=== PATIENT | male | born 1980 ===

== ENCOUNTER 2021-05-08 22:55 | Inpatient (IN) | payer MEDICARE, MEDICAID ==
[~2021-05-08] VITALS: Ht 170.2 cm; Wt 82.2 kg
[2021-05-08 23:00] VITALS: BP 143/91
[2021-05-08] MEDS ORDERED: VANCOMYCIN PER PHARMACY MC PRN (23:15)
[2021-05-08] MEDS ORDERED: PIP/TAZO PER PHARMACY MC PRN (23:15)
[2021-05-08] MEDS ORDERED: ONDANSETRON PF 4 MG/2 ML VIAL. IVP PRN (23:15)
[2021-05-08] MEDS ORDERED: HYDR100T24 PO (23:16)
[2021-05-08] MEDS ORDERED: CARV25TA2 PO (23:16)
[2021-05-08] MEDS ORDERED: CALC667T4 PO (23:16)
[2021-05-08] MEDS ORDERED: CETI10TA16 PO (23:16)
[2021-05-08] MEDS ORDERED: B,C/1TAB PO (23:16)
[2021-05-08] MEDS ORDERED: CLON0.1T PO (23:16)
[2021-05-08] MEDS: MORPHINE SULFATE 4 MG/ML INJ. IV PRN (23:36)
[2021-05-08] MEDS: GABAPENTIN 100 MG CAPSULE. PO SCH (23:36)
[2021-05-09] MEDS ORDERED: LINEZOLID 600 MG TABLET PO SCH (00:30)
[2021-05-09] MEDS: MEROPENEM 500 MG in IV NORMAL SALINE 50ML 50 ML IV SCH ×2 (00:30→22:16)
[2021-05-09 03:00] VITALS: BP 159/97
[2021-05-09] MEDS: MORPHINE SULFATE 4 MG/ML INJ. IV PRN ×4 (05:37→20:13)
[2021-05-09 07:00] VITALS: BP 162/96
--- NOTE | 2021-05-09 08:38 | PDOC1 ---
History and Physical Date of Service: DOS: DATE: 05/09/21 TIME: 08:37 Chief Complaint: Chief Complain: Infected AV graft in the right upper extremity History of Present Illness: HPI: Patient is a 40-year-old male with past medical history of ESRD TTS, IV drug abuse, noncompliance, and multiple times at [facility] for partially occluded temporary dialysis catheters and infections. Apparently, he was lost to follow-up at [facility] but he did go to [place] and had an AV graft placed and has been used for approximately 4 weeks. Of note when patient was at [place] his hemoglobin was 6.9 and he needed transfusion. The graft was also evaluated and ultrasound that showed no focal stenosis in the fistula however there was fluid adjacent to the graft itself that was consistent with an abscess. Patient only complains of pain and swelling around her his upper extremity. Denies any fevers, chest pain, shortness of breath, abdominal pain, dysuria, diarrhea or bloody stools. Patient was transferred over here to [place] for vascular surgery support and evaluation. Past Medical/Surgical History: PMH/PSH: Past medical and surgical history of hypertension, ESRD TTS, IV drug abuse, AV graft placement and temporary catheter placement. Allergies: Allergies: Coded Allergies: sulfamethoxazole (Verified Allergy, Severe, 05/08/21) NOt allowed d/t kidney function trimethoprim (Verified Allergy, Severe, 05/08/21) Penicillins (Verified Allergy, Intermediate, 05/08/21) codeine (Verified Allergy, Intermediate, 05/08/21) hydrocodone (Verified Allergy, Intermediate, Rash, 05/08/21) vancomycin (Verified Allergy, Intermediate, Rash, 05/08/21) Family History: Family History: Reviewed with no relevant findings. Social History: Social History: History of IV drug abuse Current Medications: Current Medications Current Medications Morphine Sulfate (Morphine Sulfate) 4 mg PRN Q2HR PRN IV SEVERE PAIN 7-10 Last administered on 05/09/21at 05:37; Start 05/08/21 at 23:15 Piperacillin Sod/ Tazobactam Sod (Zosyn Per Pharmacy) 1 each PRN DAILY PRN MC SEE COMMENTS; Start 05/08/21 at 23:15; Stop 05/09/21 at 00:14; Status DC Vancomycin HCl (Vanco Per Pharmacy) 1 each PRN DAILY PRN MC SEE COMMENTS; Start 05/08/21 at 23:15; Stop 05/09/21 at 00:14; Status DC Diphenhydramine HCl (Benadryl) 25 mg PRN QHS PRN PO INSOMNIA; Start 05/08/21 at 23:15 Alprazolam (Xanax) 0.5 mg PRN Q6HRS PRN PO ANXIETY / AGITATION; Start 05/08/21 at 23:15 Gabapentin (Neurontin) 100 mg BID PO Last administered on 05/08/21at 23:36; Start 05/09/21 at 00:00 Ondansetron HCl (Zofran) 4 mg PRN Q4HRS PRN IVP NAUSEA/VOMITING 1ST CHOICE; Start 05/08/21 at 23:15 Pantoprazole Sodium (Protonix) 40 mg DAILYAC PO ; Start 05/09/21 at 07:30 Cetirizine HCl (ZyrTEC) 10 mg DAILY PO ; Start 05/09/21 at 09:00 Clonidine HCl (Catapres) 0.1 mg DAILY PO ; Start 05/09/21 at 09:00 Vitamin B Complex/ Vitamin C (Diane-Jerrod) 1 tab DAILY PO ; Start 05/09/21 at 09:00 Calcium Acetate (Phoslo) 667 mg TIDWMEALS PO ; Start 05/09/21 at 08:00 Carvedilol (Coreg) 25 mg BIDWMEALS PO ; Start 05/09/21 at 08:00 Hydralazine HCl (Apresoline) 100 mg DAILY PO ; Start 05/09/21 at 09:00 Linezolid (Zyvox) 600 mg BID PO ; Start 05/09/21 at 00:30; Stop 05/09/21 at 04:11; Status DC Meropenem 500 mg/ Sodium Chloride 50 ml @ 100 mls/hr QHS IV Last administered on 05/09/21at 00:30; Start 05/09/21 at 00:30 Linezolid/Dextrose 300 ml @ 300 mls/hr Q12HR IV Last administered on 05/09/21at 05:32; Start 05/09/21 at 05:00 Active Scripts Active Reported Carvedilol 25 Mg Tablet 25 Mg PO BIDWMEALS Renaplex-D Tablet (B,C/Folic/Zinc/Selenometh/D3/E) 1 Each Tablet 1 Each PO DAILY Clonidine Hcl 0.1 Mg Tablet 0.1 Mg PO DAILY Hydralazine Hcl 100 Mg Tablet 1 Tab PO DAILY Calcium Acetate 667 Mg Tablet 1 Tab PO TID 30 Days Cetirizine Hcl 10 Mg Tablet 1 Tab PO DAILY ROS: Review of Systems Review of System REVIEW OF SYSTEMS: GENERAL: Denies weakness SKIN: No bruising, hair changes or rashes. EYES: No blurred, double or loss of vision. NOSE AND THROAT: No history of nosebleeds, hoarseness or sore throat. HEART: No history of palpitations, chest pain or shortness of breath on exertion. LUNGS: Denies cough, hemoptysis, wheezing or shortness of breath. GASTROINTESTINAL: Denies changes in appetite, nausea, vomiting, diarrhea or constipation. GENITOURINARY: No history of frequency, urgency, hesitancy or nocturia. NEUROLOGIC: Denies history of numbness, tingling, or tremor. PSYCHIATRIC: No history of panic, anxiety or depression. ENDOCRINE: No history of heat or cold intolerance, polyuria or polydipsia. EXTREMITIES: Denies joint pain, pain on walking or stiffness. Physical Exam: Vital Signs: Vital Signs Date Time Temp Pulse Resp B/P (MAP) Pulse Ox O2 Delivery O2 Flow Rate FiO2 05/09/21 03:00 98.4 91 20 159/97 (117) 98 Room Air 98.4 Physcial Exam: GEN: No apparent distress. Alert and oriented HEENT: Normal cephalic, atraumatic, external auditory canals are patent EYES: Extraocular muscles are intact, pupil are equally round and reactive to light and accommodation MUSCULOSKELETAL: Well developed , well nourished, good range of motion ENDOCRINE: No thyromegaly was palpated LYMPHATICS: No cervical chain or axillary nodes were noted HEMATOPOIETIC: No bruising NECK: Supple, no JVD, no thyromegaly was noted LUNGS: Clear to auscultation in all lung kumar without rhonchi or wheezing HEART: RRR, S!, S2 present. Peripheral pulses intact, no obvious murmurs noted ABDOMEN: Soft, nontender. Positive bowel sounds, no organomegaly, normal bowel sounds EXTREMITIES: Without clubbing, cyanosis, or edema. Pedal pulses intact. Negative Homans sign NEUROLOGIC: Normal speech and tone. A&O x 3, moves all extremities, no obvious focal deficits PSYCHIATRIC: Normal affect, normal mood. Stable SKIN: No ulcerations or rashes, good skin turgor, no jaundice VASCULAR: Good capillary refill, neurovascular bundle appears to be intact Labs: Labs: Pending redraw of labs. Images: Images All images reviewed from [facility]. Assessment/Plan Assessment/Plan Acute infection of right upper extremity AV graft Acute volume overload due to ESRD Acute electrolyte derangement due to ESRD Admit to hospital service for further management Vascular surgery consult Consider ID consult Nephrology consult for HD Continue empiric IV antibiotics Pending blood cultures Heparin for DVT prophylaxis Protonix GI prophylaxis ADA diet Full code Discussed with RN and SW Disposition inpatient management as above Surrogate decision maker is Justifications for Admission Other Justification KRISTINA GUY MD May 09, 2021 08:37
[2021-05-09] MEDS: GABAPENTIN 100 MG CAPSULE. PO SCH ×2 (08:40→20:13)
[2021-05-09] MEDS: FOLIC/VIT B COMP W-C (RENAL) TABLET. PO SCH (08:40)
[2021-05-09] MEDS: cloNIDine HCL 0.1 MG TABLET PO SCH (08:40)
[2021-05-09] MEDS: CARVEDILOL 12.5 MG TABLET. PO SCH ×2 (08:41→17:14)
[2021-05-09] MEDS: CETIRIZINE HCL 10 MG TABLET. PO SCH (08:41)
[2021-05-09] MEDS: CALCIUM ACETATE 667 MG CAPSULE PO SCH ×3 (08:41→17:13)
[2021-05-09] MEDS: PANTOPRAZOLE 40 MG TABLET.DR. PO SCH (08:41)
--- NOTE | 2021-05-09 10:01 | PDOC2 ---
CONSULT Date of Consult Date of Consult DATE: 05/09/21 TIME: 09:44 Reason for Consult Reason for Consult: ESRD Referring Physician Referring Physician: MALENA Identification/Chief Complaint Chief Complaint INFECTED ARM AVG Source Source: Chart review, Patient History of Present Illness Reason for Visit: THIS IS A 40 YR OLD WITH ESRD AND ON HD LAST 5 YEARS. ADMITTED TO [facility] WITH ANEMIA AND INFECTED RIGHT ARM AVG. 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 HAS HAD A FAILED LEFT ARM AVG ONCE AND A ANOTHER FAILED RIGHT ARM AVG. CURRENTLY HAS A NEW RIGHT ARM AVG PLACED ABOUT 4 WEEKS AGO PER PT. FIRST TWO DONE BY DR ROY AND THE LAST ONE BY DR FROST. CURRENTLY HAS A RIGHT ARM AVG ABSCESS. UNABLE TO USE ALTHOUGH PATENT. HE HAD A TEMP HD LINE PLACED AND HAS HAD HD VIA THIS YESTERDAY. USUAL HD DAYS ARE TTS. HE IS TRANSFERRED HERE DUE TO LACK OF VASCULAR SURGERY SUPPORT AT HIS HOSPITAL OR DUE TO LACK OF BEDS AT ANY OTHER NEAR HOSPITALS. LABS ARE C/W ESRD. ANEMIA NOTED. LABS FROM OUTSIDE HOSPITAL REVIEWED. NO LEUCOCYTOSIS NOTED. Past Medical History Past Medical History GLUCOSE INTOLERANCE, LINE SEPSIS, HX OF IVDA, HX OF CELLUITIS Cardiovascular: HTN, Hyperlipidemia Pulmonary: Bronchitis GI: Constipation Heme/Onc: Anemia NOS Renal/: Chronic renal failure, Other (MPGN, PROTEINURIA) Endocrine: Hyperparathyroidism Past Surgical History Past Surgical History HX OF TEMP AND TUNNELED HD LINE. HX OF FAILED LEFT ARM AND RIGHT ARM AVG Family History Family History: Hypertension Social History No ALCOHOL: social Drugs: Other (IVDA) Lives: with Family Current Medications Current Medications Current Medications Morphine Sulfate (Morphine Sulfate) 4 mg PRN Q2HR PRN IV SEVERE PAIN 7-10 Last administered on 05/09/21at 08:40; Start 05/08/21 at 23:15 Piperacillin Sod/ Tazobactam Sod (Zosyn Per Pharmacy) 1 each PRN DAILY PRN MC SEE COMMENTS; Start 05/08/21 at 23:15; Stop 05/09/21 at 00:14; Status DC Vancomycin HCl (Vanco Per Pharmacy) 1 each PRN DAILY PRN MC SEE COMMENTS; Start 05/08/21 at 23:15; Stop 05/09/21 at 00:14; Status DC Diphenhydramine HCl (Benadryl) 25 mg PRN QHS PRN PO INSOMNIA; Start 05/08/21 at 23:15 Alprazolam (Xanax) 0.5 mg PRN Q6HRS PRN PO ANXIETY / AGITATION; Start 05/08/21 at 23:15 Gabapentin (Neurontin) 100 mg BID PO Last administered on 05/09/21at 08:40; Start 05/09/21 at 00:00 Ondansetron HCl (Zofran) 4 mg PRN Q4HRS PRN IVP NAUSEA/VOMITING 1ST CHOICE; Start 05/08/21 at 23:15 Pantoprazole Sodium (Protonix) 40 mg DAILYAC PO Last administered on 05/09/21 08:41; Start 05/09/21 at 07:30 Cetirizine HCl (ZyrTEC) 10 mg DAILY PO Last administered on 05/09/21 08:41; Start 05/09/21 at 09:00 Clonidine HCl (Catapres) 0.1 mg DAILY PO Last administered on 05/09/21at 08:40; Start 05/09/21 at 09:00 Vitamin B Complex/ Vitamin C (Diane-Jerrod) 1 tab DAILY PO Last administered on 05/09/21 08:40; Start 05/09/21 at 09:00 Calcium Acetate (Phoslo) 667 mg TIDWMEALS PO Last administered on 05/09/21 08:41; Start 05/09/21 at 08:00 Carvedilol (Coreg) 25 mg BIDWMEALS PO Last administered on 05/09/21 08:41; Start 05/09/21 at 08:00 Hydralazine HCl (Apresoline) 100 mg DAILY PO Last administered on 05/09/21at 08:41; Start 05/09/21 at 09:00 Linezolid (Zyvox) 600 mg BID PO ; Start 05/09/21 at 00:30; Stop 05/09/21 at 04:11; Status DC Meropenem 500 mg/ Sodium Chloride 50 ml @ 100 mls/hr QHS IV Last administered on 05/09/21at 00:30; Start 05/09/21 at 00:30 Linezolid/Dextrose 300 ml @ 300 mls/hr Q12HR IV Last administered on 05/09/21at 05:32; Start 05/09/21 at 05:00 Active Scripts Active Reported Carvedilol 25 Mg Tablet 25 Mg PO BIDWMEALS Renaplex-D Tablet (B,C/Folic/Zinc/Selenometh/D3/E) 1 Each Tablet 1 Each PO DAILY Clonidine Hcl 0.1 Mg Tablet 0.1 Mg PO DAILY Hydralazine Hcl 100 Mg Tablet 1 Tab PO DAILY Calcium Acetate 667 Mg Tablet 1 Tab PO TID 30 Days Cetirizine Hcl 10 Mg Tablet 1 Tab PO DAILY Allergies Allergies: Coded Allergies: sulfamethoxazole (Verified Allergy, Severe, 05/08/21) NOt allowed d/t kidney function trimethoprim (Verified Allergy, Severe, 05/08/21) Penicillins (Verified Allergy, Intermediate, 05/08/21) codeine (Verified Allergy, Intermediate, 05/08/21) hydrocodone (Verified Allergy, Intermediate, Rash, 05/08/21) vancomycin (Verified Allergy, Intermediate, Rash, 05/08/21) ROS General: YES: Fatigue, Malaise PSYCHOLOGICAL ROS: YES: Anxiety, Depression, Sleep disturbances Eyes: Yes Decreased vision HEENT: YES: Nuha ALLERGY AND IMMUNOLOGY: YES: Seasonal Allergies Respiratory: YES: Cough, Orthopnea Cardiovascular: yes Edema Gastrointestinal: Yes Constipation Genitourinary: YES Frequency Musculoskeletal: Yes Joint Stiffness, Yes Muscular Weakness Neurological: Yes Weakness Skin: Yes Other (RIGHT ARM TENDERNESS OVER AVG SITE) Physical Exam General: Alert, Oriented X3, Cooperative, No acute distress HEENT: Atraumatic, PERRLA Lungs: Clear to auscultation Heart: Regular rate, Normal S1, Normal S2 Abdomen: Normal bowel sounds Extremities: No clubbing, No edema Skin: No breakdown Neuro: Normal gait, Normal speech, Sensation intact Psych/Mental Status: Mental status NL, Mood NL MUSCULOSKELETAL: No joint tenderness, No deformity, Other (RIGHT ARM AVG WITH A THRILL AND BRUIT, RIGHT IJ TEMP HD LINE) Vitals VITALS Vital Signs Date Time Temp Pulse Resp B/P (MAP) Pulse Ox O2 Delivery O2 Flow Rate FiO2 05/09/21 08:41 91 159/97 05/09/21 08:40 Room Air 05/09/21 07:00 98.7 20 96 98.7 Labs Labs OUTSIDE LABS REVIEWED Assessment/Plan Assessment/Plan IMP ESRD-TTS MPGN ANEMIA HTN GLUCOSE INTOLERANCE POSS LINE SEPSIS RIGHT ARM BB AVG ABSCESS PLAN ANTIBIOTICS ARANESP RESUME HOME MEDS HAD HD YESTERDAY - SO NEXT TX ON TUESDAY CONSIDER ECHOCARDIOGRAM VASCULAR SURGERY CONSULT WILL PROB NEED GRAFT RESECTION ONCE INFECTION CLEARS WILL CONVERT TEMP TO TUNNELED LINE RENAL DIET ENC ABSTINENCE FROM IVDA WILL FOLLOW D/W ATTENDING ITZEL ARAYA MD May 09, 2021 10:01
[2021-05-09 10:36] LABS: CALCIUM 8.6 mg/dL (8.5-10.1); CREATININE 6.4 mg/dL (0.7-1.3); GFR 9.8; POTASSIUM 5.4 mmol/L (3.5-5.1)
[2021-05-09 11:00] VITALS: BP 158/87
[2021-05-09 11:06] LABS: BASO # 0.1 x10^3/uL (0.0-0.2); BASO % 1 % (0-3); EOS # 0.1 x10^3/uL (0.0-0.7); EOS % 2 % (0-3); HEMATOCRIT 27.2 % (39.0-53.0); HEMOGLOBIN 9.2 g/dL (13.0-17.5); LYMPH # 0.7 x10^3/uL (1.0-4.8); LYMPH % 9 % (24-48); MEAN CORPUSCULAR HEMOGLOBIN 31 pg (25-35); MEAN CORPUSCULAR HGB CONC 34 g/dL (31-37); MEAN CORPUSCULAR VOLUME 93 fL (79-100); MONO % 0 % (0-9); NEUT # 6.9 x10^3/uL (1.8-7.7); NEUT % 88 % (31-73); PLATELET COUNT 180 x10^3/uL (140-400); RED BLOOD COUNT 2.94 x10^6/uL (4.30-5.70); RED CELL DISTRIBUTION WIDTH 20.5 % (11.5-14.5); WHITE BLOOD COUNT 7.9 x10^3/uL (4.0-11.0)
--- NOTE | 2021-05-09 11:27 | PDOC ---
Provider Note Date of Service: DATE: 05/09/21 TIME: 11:22 Provider Note (Please see full dictated note for details.) He is a 40-year-old male with chronic renal failure on hemodialysis. He presents with swelling and tenderness along his right arm arteriovenous shunt. The shunt was placed approximately 2 months ago. An outside ultrasound suggested fluid around the graft concerning for possible abscess. He currently has a temporary dialysis catheter in his right neck. He states that there was some difficulty with his access of the right arm graft previously. He has had previous graft within his left arm. His last graft in the left arm had to be removed due to infection. He has a superficial area of skin breakdown over the lateral aspect of his right arm graft. There is no surrounding erythema or fluctuance at this time. He has some more significant fullness on the medial right arm that is not tender. There is also no surrounding erythema. He has chronic renal failure on hemodialysis. He has a superficial ulcer over his arteriovenous shunt, but no other signs of deeper infection at this time despite his recent ultrasound imaging. Would continue broad-spectrum antibiotics. I do not have images of his previous ultrasound. Would consider repeating a right arm ultrasound tomorrow. I do not see any definitive clinical findings to suggest a deeper abscess at this time. I would not recommend exploration or excision of his graft unless we see more definitive signs of a deeper infection. We will continue to follow with you. Justifications for Admission Other Justification ZEV GABRIEL MD May 09, 2021 11:27
--- NOTE | 2021-05-09 13:06 | CONS ---
DATE OF CONSULTATION: 05/09/2021 CHIEF COMPLAINT: Right arm pain and swelling. HISTORY OF PRESENT ILLNESS: The patient is a 40-year-old male with chronic renal failure, on hemodialysis. He has been dialyzing through a right arm arteriovenous shunt placed approximately 2 months ago. He developed swelling after a recent episode of dialysis where there was some difficulty with needle access. He has had some tenderness on the lateral aspect of the graft since that time. There was concern about infected graft, which prompted presentation to the hospital. He denies any fevers or chills at this time. He has had multiple previous grafts in his left arm. His latest left arm graft had to be removed due to infection. An ultrasound at [facility] suggested fluid around his right arm shunt, possibly related to an abscess. I do not have access to those images at this time. PAST MEDICAL HISTORY: 1. Chronic renal failure, on hemodialysis. 2. Hypertension. 3. Hyperlipidemia. 4. Secondary hyperparathyroidism. PAST SURGICAL HISTORY: 1. Previous left arm arteriovenous access including fistula and shunt placement with a previous infected graft removal. 2. Right arm arteriovenous shunt placement approximately 2 months ago. 3. Previous hemodialysis catheter placement including a recent right internal jugular temporary catheter placement. CURRENT MEDICATIONS: Aranesp, hydralazine, vitamin B complex, clonidine, Zyrtec, Coreg, calcium acetate, pantoprazole, linezolid, meropenem, Neurontin, Zofran, alprazolam and p.r.n. morphine. ALLERGIES: ADVERSE REACTION TO PENICILLIN, CODEINE, HYDROCODONE, SULFAMETHOXAZOLE, TRIMETHOPRIM, AND VANCOMYCIN. SOCIAL HISTORY: He notes occasional alcohol use. He denies any smoking at this time. He lives with his family. FAMILY HISTORY: Significant for hypertension. REVIEW OF SYSTEMS: No recent fevers, chills, chest pain or shortness of breath. He denies any unilateral weakness/numbness, vision loss, speech changes or other lateralizing TIA or stroke symptoms. He denies any nausea, vomiting, diarrhea, constipation, hematochezia, melena or other GI symptoms. He has some chronic weakness. Other 14-point review of systems are unremarkable. PHYSICAL EXAMINATION: GENERAL: This is a chronically ill-appearing male in no acute distress. VITAL SIGNS: Temperature 98.7, pulse 85, blood pressure 162/96, respirations 20. NECK: Supple. He has a right internal jugular temporary dialysis catheter in place. He has scarring from previous catheter access. CARDIOVASCULAR: Regular rhythm. Respirations nonlabored. ABDOMEN: Soft, without focal areas of tenderness. EXTREMITIES: He has healed surgical scars on his left arm from previous dialysis access placement. He has a right upper arm arteriovenous shunt with palpable thrill within the graft. There is a superficial area of skin breakdown measuring less than a centimeter in diameter over the lateral and distal aspect of his right arm AV shunt. There is no surrounding erythema or fluctuance of this area. No drainage at present. He has some more prominent fullness on the medial aspect of his right arm, but no surrounding erythema. He has some slight tenderness around the lateral aspect of the graft, but no area of tenderness on the medial arm where the fullness is noted. He has no areas of skin breakdown on his fingers. No significant peripheral edema or areas of skin breakdown on his lower extremities. LABORATORY DATA: Labs are significant for white blood cell 7.9, hemoglobin 9.2, platelet count of 180. Sodium 135, potassium 5.4, BUN 45, creatinine 6.4, glucose 83. ASSESSMENT AND PLAN: 1. Chronic renal failure, on hemodialysis. 2. Tenderness and swelling around his right arm arteriovenous shunt. It is unclear whether this is due to infiltration and perigraft hematoma or less likely due to abscess. 3. Hypertension. 4. Secondary hyperparathyroidism. RECOMMENDATIONS: 1. Broad spectrum IV antibiotics that have been started. 2. I do not see definitive clinical evidence of a graft infection. I am hesitant to remove this right arm graft based solely upon and ultrasound with some perigraft fluid in the absence of fever or elevated white blood cell count or other clinical findings. Would consider repeating a right arm shunt ultrasound to see if this fluid collection has changed or if he has clinical changes that might suggest a deeper infection. 3. We will continue to follow with you. DAILY DR: Mery TID: [id number] CC: ITZEL ARAYA MD
[2021-05-09 13:56] LABS: % EOS 1 % (0-5); % LYMPHS 16 % (24-48); % MONOS 2 % (0-10); % SEGS 81 % (35-66); ANISOCYTOSIS SLIGHT; PLT ESTIMATE ADEQUATE (ADEQUATE)
[2021-05-09 15:00] VITALS: BP 150/80
[2021-05-09] MEDS: oxyCODONE/APAP 10/325 1 TAB TABLET PO PRN ×2 (17:14→23:39)
[2021-05-09 19:00] VITALS: BP 132/77
[2021-05-09] MEDS: LACTOBACILLUS RHAMNOSUS GG 1 CAPSULE. PO SCH (20:13)
[2021-05-09] MEDS: ALPRAZolam 0.5 MG TABLET PO PRN (20:14)
[2021-05-09] MEDS: DARBEPOETIN ALFA 25 MCG/0.42 ML DISP.SYRIN. SQ SCH (21:00)
[2021-05-09] MEDS: DARBEPOETIN ALFA 40 MCG/0.4 ML DISP.SYRIN. SQ SCH (21:00)
[2021-05-09 23:00] VITALS: BP 134/78
[2021-05-10] MEDS: MORPHINE SULFATE 4 MG/ML INJ. IV PRN ×3 (01:59→20:03)
[2021-05-10 03:00] VITALS: BP 141/70
[2021-05-10 06:07] LABS: CALCIUM 8.5 mg/dL (8.5-10.1); CREATININE 7.7 mg/dL (0.7-1.3); GFR 7.9; POTASSIUM 5.3 mmol/L (3.5-5.1)
[2021-05-10 06:08] LABS: RED BLOOD COUNT 2.63 x10^6/uL (4.30-5.70); RED CELL DISTRIBUTION WIDTH 20.4 % (11.5-14.5)
[2021-05-10 06:45] VITALS: BP 162/95
[2021-05-10] MEDS: CARVEDILOL 12.5 MG TABLET. PO SCH ×2 (08:08→17:42)
[2021-05-10] MEDS: CALCIUM ACETATE 667 MG CAPSULE PO SCH ×3 (08:08→17:42)
[2021-05-10] MEDS: PANTOPRAZOLE 40 MG TABLET.DR. PO SCH (08:09)
--- NOTE | 2021-05-10 10:37 | PDOC ---
Renal-Progress Notes Subjective Notes Notes THROBBING PAIN RIGHT ARM AVG AREA History of Present Illness Hx of present illness STABLE Vitals Vitals Vital Signs Date Time Temp Pulse Resp B/P (MAP) Pulse Ox O2 Delivery O2 Flow Rate FiO2 05/10/21 08:08 99 162/95 05/10/21 06:45 97.6 20 99 Room Air 97.6 Weight Weight [ ] I.O. Intake and Output Intake and Output 05/10/21 07:00 Intake Total 1240 ml Balance 1240 ml Intake Oral 1240 ml Labs Labs Laboratory Tests Test 05/10/21 05:15 White Blood Count 7.0 x10^3/uL (4.0-11.0) Red Blood Count 2.63 x10^6/uL (4.30-5.70) Hemoglobin 8.0 g/dL (13.0-17.5) Hematocrit 24.0 % (39.0-53.0) Mean Corpuscular Volume 91 fL (79-100) Mean Corpuscular Hemoglobin 30 pg (25-35) Mean Corpuscular Hemoglobin Concent 33 g/dL (31-37) Red Cell Distribution Width 20.4 % (11.5-14.5) Platelet Count 161 x10^3/uL (140-400) Sodium Level 133 mmol/L (136-145) Potassium Level 5.3 mmol/L (3.5-5.1) Chloride Level 96 mmol/L (98-107) Carbon Dioxide Level 24 mmol/L (21-32) Anion Gap 13 (6-14) Blood Urea Nitrogen 56 mg/dL (8-26) Creatinine 7.7 mg/dL (0.7-1.3) Estimated GFR (Cockcroft-Gault) 7.9 Glucose Level 95 mg/dL (70-99) Calcium Level 8.5 mg/dL (8.5-10.1) Review of Systems Constitutional: yes: weakness, alert, oriented Ears/Nose/Throat: Yes: no symptom reported Eyes: Yes: no symptom reported Pulmonary: Yes no symptom reported Cardiovascular: Yes no symptom reported Gastrointestional: Yes: constipation Genitourinary: Yes: no symptom reported Musculoskeletal: Yes: arm pain, muscle stiffness Skin: Yes no symptom reported Psychiatric/Neurological: Yes: no symptom reported Endocrine: Yes: no symptom reported Physical Exam General Appearance: no apparent distress Skin: warm Respiratory: bilateral CTA Heart: S1S2 Abdomen: soft, bowel sounds present Genitourinary: bladder flat Extremities: pulses present, other (RIGHT ARM AVG WITH TENDERNESS, ERYTHEMA, THRILL AND BRUIT PRESENT) Neurology: alert, oriented Assessment Assessment IMP ESRD-TTS MPGN ANEMIA HTN GLUCOSE INTOLERANCE POSS LINE SEPSIS RIGHT ARM BB AVG SITE INFECTION IVDA PLAN ANTIBIOTICS ARANESP RESUME HOME MEDS HD TOMORROW CONSIDER ECHOCARDIOGRAM VASCULAR SURGERY EVALUATION ENC ABSTINENCE FROM IVDA WILL FOLLOW D/W ATTENDING ITZEL ARAYA MD May 10, 2021 10:36
[2021-05-10 11:00] VITALS: BP 132/63
[2021-05-10] MEDS: FOLIC/VIT B COMP W-C (RENAL) TABLET. PO SCH (11:05)
[2021-05-10] MEDS: cloNIDine HCL 0.1 MG TABLET PO SCH (11:06)
[2021-05-10] MEDS: GABAPENTIN 100 MG CAPSULE. PO SCH ×2 (11:06→20:03)
[2021-05-10] MEDS: LACTOBACILLUS RHAMNOSUS GG 1 CAPSULE. PO SCH ×2 (11:06→20:03)
[2021-05-10] MEDS: LINEZOLID 600 MG TABLET PO SCH ×2 (11:06→20:03)
[2021-05-10] MEDS: CETIRIZINE HCL 10 MG TABLET. PO SCH (11:06)
--- NOTE | 2021-05-10 11:06 | PDOC ---
[employer] PROGRESS NOTE Date of Service DOS: DATE: 05/10/21 TIME: 11:04 Chief Complaint Chief Complaint Acute infection of right upper extremity AV graft Acute volume overload due to ESRD Acute electrolyte derangement due to ESRD Pending TTE Vascular surgery consult Consider ID consult Nephrology consult for HD Continue empiric IV antibiotics Pending blood cultures Heparin for DVT prophylaxis Protonix GI prophylaxis ADA diet Full code Discussed with RN and SW Disposition inpatient management as above Surrogate decision maker is History of Present Illness History of Present Illness 40-year-old male with past medical history of ESRD TTS, IV drug abuse, noncompliance, and multiple times at [facility] for partially occluded temporary dialysis catheters and infections. Apparently, he was lost to follow-up at [facility] but he did go to [place] and had an AV graft placed and has been used for approximately 4 weeks. Of note when patient was at [place] his hemoglobin was 6.9 and he needed transfusion. The graft was also evaluated and ultrasound that showed no focal stenosis in the fistula however there was fluid adjacent to the graft itself that was consistent with an abscess. Patient only complains of pain and swelling around her his up per extremity. Denies any fevers, chest pain, shortness of breath, abdominal pain, dysuria, diarrhea or bloody stools. Patient was transferred over here to [place] for vascular surgery support and evaluation. 05/10/2021 No acute events overnight. Afebrile. Labs are stable. Patient only complains of throbbing right arm pain. Patient's chart, labs, images were reviewed and discussed with RN Vitals/I&O Vitals/I&O: Vital Signs Date Time Temp Pulse Resp B/P (MAP) Pulse Ox O2 Delivery O2 Flow Rate FiO2 05/10/21 08:08 99 162/95 05/10/21 06:45 97.6 20 99 Room Air 97.6 I & O 05/09/21 05/09/21 05/10/21 15:00 23:00 07:00 Intake Total 300 ml 640 ml 300 ml Balance 300 ml 640 ml 300 ml Physical Exam General: Alert, Oriented X3, Cooperative, No acute distress Heart: Regular rate, Normal S1, Normal S2 Abdomen: Normal bowel sounds Extremities: No clubbing, Other (Tenderness in the right arm near the AV graft site. Increased swelling at the right upper extremity.) Skin: No breakdown Labs Labs: Laboratory Tests Test 05/10/21 05:15 White Blood Count 7.0 x10^3/uL (4.0-11.0) Red Blood Count 2.63 x10^6/uL (4.30-5.70) Hemoglobin 8.0 g/dL (13.0-17.5) Hematocrit 24.0 % (39.0-53.0) Mean Corpuscular Volume 91 fL (79-100) Mean Corpuscular Hemoglobin 30 pg (25-35) Mean Corpuscular Hemoglobin Concent 33 g/dL (31-37) Red Cell Distribution Width 20.4 % (11.5-14.5) Platelet Count 161 x10^3/uL (140-400) Sodium Level 133 mmol/L (136-145) Potassium Level 5.3 mmol/L (3.5-5.1) Chloride Level 96 mmol/L (98-107) Carbon Dioxide Level 24 mmol/L (21-32) Anion Gap 13 (6-14) Blood Urea Nitrogen 56 mg/dL (8-26) Creatinine 7.7 mg/dL (0.7-1.3) Estimated GFR (Cockcroft-Gault) 7.9 Glucose Level 95 mg/dL (70-99) Calcium Level 8.5 mg/dL (8.5-10.1) Comment Review of Relevant I have reviewed the following items guerda (where applicable) has been applied. Medications: Current Medications Medications (Trade) Dose Ordered Sig/Gemma Route PRN Reason Start Time Stop Time Status Last Admin Dose Admin Oxycodone/ Acetaminophen (Percocet 10/325) 1 tab PRN Q6HRS PRN PO PAIN 05/09/21 13:00 05/09/21 23:39 Lactobacillus Rhamnosus (Culturelle) 1 cap BID PO 05/09/21 21:00 05/09/21 20:13 Justifications for Admission Other Justification KRISTINA GUY MD May 10, 2021 11:06
[2021-05-10] MEDS: oxyCODONE/APAP 10/325 1 TAB TABLET PO PRN ×3 (11:10→23:48)
--- NOTE | 2021-05-10 11:14 | PDOC ---
PROGRESS NOTES Date of Service DATE: 05/10/21 TIME: 11:12 Subjective Subjective Pt seen and examined in his hospital bed, labs and images reviewed He has some c/o swelling in the left axilla I examined the entire course of his AVG and do not appreciate any erythema, no fluctuance, no warmth, no drainage, etc I don't see any exam in lab evidence that his graft is infected. Removing this would leave him with a large wound and limited options for HD so wound only remove if absolutely necessary will continue to follow Objective Objective Vital Signs Date Time Temp Pulse Resp B/P (MAP) Pulse Ox O2 Delivery O2 Flow Rate FiO2 05/10/21 11:06 99 162/95 05/10/21 06:45 97.6 20 99 Room Air 97.6 Intake and Output 05/10/21 07:00 Intake Total 1240 ml Balance 1240 ml Intake Oral 1240 ml Comment Review of Relevant I have reviewed the following items guerda (where applicable) has been applied. Labs Laboratory Tests Test 05/09/21 08:55 05/10/21 05:15 White Blood Count 7.9 x10^3/uL (4.0-11.0) 7.0 x10^3/uL (4.0-11.0) Red Blood Count 2.94 x10^6/uL (4.30-5.70) 2.63 x10^6/uL (4.30-5.70) Hemoglobin 9.2 g/dL (13.0-17.5) 8.0 g/dL (13.0-17.5) Hematocrit 27.2 % (39.0-53.0) 24.0 % (39.0-53.0) Mean Corpuscular Volume 93 fL (79-100) 91 fL (79-100) Mean Corpuscular Hemoglobin 31 pg (25-35) 30 pg (25-35) Mean Corpuscular Hemoglobin Concent 34 g/dL (31-37) 33 g/dL (31-37) Red Cell Distribution Width 20.5 % (11.5-14.5) 20.4 % (11.5-14.5) Platelet Count 180 x10^3/uL (140-400) 161 x10^3/uL (140-400) Neutrophils (%) (Auto) 88 % (31-73) Lymphocytes (%) (Auto) 9 % (24-48) Monocytes (%) (Auto) 0 % (0-9) Eosinophils (%) (Auto) 2 % (0-3) Basophils (%) (Auto) 1 % (0-3) Neutrophils # (Auto) 6.9 x10^3/uL (1.8-7.7) Lymphocytes # (Auto) 0.7 x10^3/uL (1.0-4.8) Monocytes # (Auto) 0.0 x10^3/uL (0.0-1.1) Eosinophils # (Auto) 0.1 x10^3/uL (0.0-0.7) Basophils # (Auto) 0.1 x10^3/uL (0.0-0.2) Segmented Neutrophils % 81 % (35-66) Lymphocytes % 16 % (24-48) Monocytes % 2 % (0-10) Eosinophils % 1 % (0-5) Platelet Estimate Adequate (ADEQUATE) Anisocytosis Slight Sodium Level 135 mmol/L (136-145) 133 mmol/L (136-145) Potassium Level 5.4 mmol/L (3.5-5.1) 5.3 mmol/L (3.5-5.1) Chloride Level 99 mmol/L (98-107) 96 mmol/L (98-107) Carbon Dioxide Level 25 mmol/L (21-32) 24 mmol/L (21-32) Anion Gap 11 (6-14) 13 (6-14) Blood Urea Nitrogen 45 mg/dL (8-26) 56 mg/dL (8-26) Creatinine 6.4 mg/dL (0.7-1.3) 7.7 mg/dL (0.7-1.3) Estimated GFR (Cockcroft-Gault) 9.8 7.9 Glucose Level 83 mg/dL (70-99) 95 mg/dL (70-99) Calcium Level 8.6 mg/dL (8.5-10.1) 8.5 mg/dL (8.5-10.1) Laboratory Tests Test 05/10/21 05:15 White Blood Count 7.0 x10^3/uL (4.0-11.0) Red Blood Count 2.63 x10^6/uL (4.30-5.70) Hemoglobin 8.0 g/dL (13.0-17.5) Hematocrit 24.0 % (39.0-53.0) Mean Corpuscular Volume 91 fL (79-100) Mean Corpuscular Hemoglobin 30 pg (25-35) Mean Corpuscular Hemoglobin Concent 33 g/dL (31-37) Red Cell Distribution Width 20.4 % (11.5-14.5) Platelet Count 161 x10^3/uL (140-400) Sodium Level 133 mmol/L (136-145) Potassium Level 5.3 mmol/L (3.5-5.1) Chloride Level 96 mmol/L (98-107) Carbon Dioxide Level 24 mmol/L (21-32) Anion Gap 13 (6-14) Blood Urea Nitrogen 56 mg/dL (8-26) Creatinine 7.7 mg/dL (0.7-1.3) Estimated GFR (Cockcroft-Gault) 7.9 Glucose Level 95 mg/dL (70-99) Calcium Level 8.5 mg/dL (8.5-10.1) Medications Current Medications Morphine Sulfate (Morphine Sulfate) 4 mg PRN Q2HR PRN IV SEVERE PAIN 7-10 Last administered on 05/10/21at 11:07; Start 05/08/21 at 23:15 Piperacillin Sod/ Tazobactam Sod (Zosyn Per Pharmacy) 1 each PRN DAILY PRN MC SEE COMMENTS; Start 05/08/21 at 23:15; Stop 05/09/21 at 00:14; Status DC Vancomycin HCl (Vanco Per Pharmacy) 1 each PRN DAILY PRN MC SEE COMMENTS; Start 05/08/21 at 23:15; Stop 05/09/21 at 00:14; Status DC Diphenhydramine HCl (Benadryl) 25 mg PRN QHS PRN PO INSOMNIA; Start 05/08/21 at 23:15 Alprazolam (Xanax) 0.5 mg PRN Q6HRS PRN PO ANXIETY / AGITATION Last administered on 05/09/21at 20:14; Start 05/08/21 at 23:15 Gabapentin (Neurontin) 100 mg BID PO Last administered on 05/10/21at 11:06; Start 05/09/21 at 00:00 Ondansetron HCl (Zofran) 4 mg PRN Q4HRS PRN IVP NAUSEA/VOMITING 1ST CHOICE; Start 05/08/21 at 23:15 Pantoprazole Sodium (Protonix) 40 mg DAILYAC PO Last administered on 05/10/21at 08:09; Start 05/09/21 at 07:30 Cetirizine HCl (ZyrTEC) 10 mg DAILY PO Last administered on 05/10/21at 11:06; Start 05/09/21 at 09:00 Clonidine HCl (Catapres) 0.1 mg DAILY PO Last administered on 05/10/21at 11:06; Start 05/09/21 at 09:00 Vitamin B Complex/ Vitamin C (Diane-Jerrod) 1 tab DAILY PO Last administered on 05/10/21at 11:05; Start 05/09/21 at 09:00 Calcium Acetate (Phoslo) 667 mg TIDWMEALS PO Last administered on 05/10/21at 08:08; Start 05/09/21 at 08:00 Carvedilol (Coreg) 25 mg BIDWMEALS PO Last administered on 05/10/21at 08:08; Start 05/09/21 at 08:00 Hydralazine HCl (Apresoline) 100 mg DAILY PO Last administered on 05/10/21at 11:05; Start 05/09/21 at 09:00 Linezolid (Zyvox) 600 mg BID PO ; Start 05/09/21 at 00:30; Stop 05/09/21 at 04:11; Status DC Meropenem 500 mg/ Sodium Chloride 50 ml @ 100 mls/hr QHS IV Last administered on 05/09/21at 22:16; Start 05/09/21 at 00:30 Linezolid/Dextrose 300 ml @ 300 mls/hr Q12HR IV Last administered on 05/09/21at 20:13; Start 05/09/21 at 05:00; Stop 05/09/21 at 23:55; Status DC Darbepoetin Uriel (ARANESP for DIALYSIS PTS) 40 mcg WEEKLYHS SQ ; Start 05/09/21 at 21:00 Darbepoetin Uriel (ARANESP for DIALYSIS PTS) 25 mcg WEEKLYHS SQ ; Start 05/09/21 at 21:00 Oxycodone/ Acetaminophen (Percocet 10/325) 1 tab PRN Q6HRS PRN PO PAIN Last administered on 05/10/21at 11:10; Start 05/09/21 at 13:00 Lactobacillus Rhamnosus (Culturelle) 1 cap BID PO Last administered on 05/10/21 at 11:06; Start 05/09/21 at 21:00 Linezolid (Zyvox) 600 mg BID PO Last administered on 05/10/21at 11:06; Start 05/10/21 at 09:00 Active Scripts Active Reported Carvedilol 25 Mg Tablet 25 Mg PO BIDWMEALS Renaplex-D Tablet (B,C/Folic/Zinc/Selenometh/D3/E) 1 Each Tablet 1 Each PO DAILY Clonidine Hcl 0.1 Mg Tablet 0.1 Mg PO DAILY Hydralazine Hcl 100 Mg Tablet 1 Tab PO DAILY Calcium Acetate 667 Mg Tablet 1 Tab PO TID 30 Days Cetirizine Hcl 10 Mg Tablet 1 Tab PO DAILY Vitals/I & O Vital Sign - Last 24 Hours 05/09/21 05/09/21 05/09/21 05/09/21 14:43 15:00 15:16 17:14 Temp 98.6 98.6 Pulse 80 80 Resp 20 B/P (MAP) 150/80 (103) 150/80 Pulse Ox 98 O2 Delivery Room Air Room Air Room Air 05/09/21 05/09/21 05/09/21 05/09/21 17:14 19:00 20:00 23:00 Temp 98.2 97.8 98.2 97.8 Pulse 89 95 Resp 20 20 B/P (MAP) 132/77 (95) 134/78 (96) Pulse Ox 98 97 O2 Delivery Room Air Room Air Room Air Room Air 05/10/21 05/10/21 05/10/21 05/10/21 03:00 06:45 08:08 11:05 Temp 98.4 97.6 98.4 97.6 Pulse 87 99 99 99 Resp 20 20 B/P (MAP) 141/70 (93) 162/95 (117) 162/95 162/95 Pulse Ox 97 99 O2 Delivery Room Air Room Air 05/10/21 11:06 Pulse 99 B/P (MAP) 162/95 Intake and Output 05/09/21 05/09/21 05/10/21 15:00 23:00 07:00 Intake Total 300 ml 640 ml 300 ml Balance 300 ml 640 ml 300 ml Justifications for Admission Other Justification SAIDA TALBERT MD May 10, 2021 11:14
[2021-05-10 15:00] VITALS: BP 132/78
--- NOTE | 2021-05-10 15:39 | CONS ---
DATE OF CONSULTATION: 05/10/2021 REFERRING PHYSICIAN: Dr. Schaefer. REASON FOR CONSULTATION: Infected AV graft in the right upper extremity. HISTORY OF PRESENT ILLNESS: A 40-year-old male with history of end-stage renal disease on dialysis, IV drug, hypertension, hyperlipidemia, history of noncompliance, presented to [place] as his hemoglobin was 6.9 and he needed transfusion. The graft was evaluated and ultrasound showed no focal stenosis in the fistula, but there was a fluid adjacent to the graft itself consistent with abscess. The patient complains of pain and swelling of the right upper extremity. He denies any fevers, chills, nausea, vomiting, diarrhea, abdominal pain, dysuria, hematuria. He was started on meropenem and linezolid. He was transferred to [facility] for vascular surgery evaluation. The patient has a history of failed left upper extremity AV graft. He underwent a right upper extremity AV graft placement about 4 weeks ago. He has failed in the past due to infection. Temporary HD line was placed prior to his transfer here. PAST MEDICAL HISTORY: Glucose intolerance, line sepsis, history of IVDA, history of abscess/cellulitis, hypertension, hyperlipidemia, bronchitis, anemia of chronic disease, CKD on HD, MPGN, hyperparathyroidism secondary. PAST SURGICAL HISTORY: As above. FAMILY HISTORY: As per HPI. SOCIAL HISTORY: Denies smoking, ETOH social, history of IVDU. Lives with family. CURRENT MEDICATIONS: The patient got vancomycin and Zosyn, on linezolid and meropenem. Other medications reviewed in [facility]. ALLERGIES: SULFAMETHOXAZOLE, TRIMETHOPRIM, PENICILLIN, CODEINE, HYDROCODONE, VANCOMYCIN. REVIEW OF SYSTEMS: Continues to have pain in the right upper extremity. Otherwise, negative except for above in the HPI. PHYSICAL EXAMINATION: VITAL SIGNS: Temperature 98.1, pulse 99, respiratory rate 18, blood pressure 162/95, oxygen saturation 98% on room air. GENERAL: Alert, oriented x 3, well-nourished, well-developed male, lying in bed comfortably, in no acute distress, watching TV. HEENT: Normocephalic, atraumatic. Anicteric. No thrush. Oral mucosa moist. NECK: Supple, no JVD. Right IJ temporary dialysis catheter in place. LUNGS: Clear bilaterally. No wheezing. HEART: S1, S2. No gallops or murmurs. ABDOMEN: Soft, nontender, nondistended. Bowel sounds present. EXTREMITIES: Right upper extremity swelling present. There is an abrasion present lateral and distal aspect of the right AV shunt area. No surrounding redness, underlying fluctuance or drainage noted. Previous scar from recent graft is well healed. No drainage. There is mild tenderness present. Right upper extremity swelling extends to the fingers. No cyanosis or clubbing. CENTRAL NERVOUS SYSTEM: Alert, oriented x 3, grossly nonfocal. PSYCHIATRIC: Calm and cooperative. DERMATOLOGIC: Warm, dry, no generalized rash except for above. LABORATORY DATA: WBC 7, hemoglobin 8.0, hematocrit 24.0, platelets 161. Sodium 133, potassium 5.3, chloride 96, bicarbonate 24, BUN 56, creatinine 7.7. IMAGING: None here. Micro, none here. IMPRESSION: 1. Possible right upper extremity infection with tenderness and swelling around the right arm AV shunt. Ultrasound at [facility] showed a fluid collection in the perigraft area. Vascular surgery has evaluated the patient. No surgical intervention planned at this time. 2. Superficial abrasion over the lateral and distal aspect of the right arm AV shunt. No underlying fluctuance to suggest abscess at this time. 3. End-stage renal disease, on hemodialysis, currently through a right temporary HDC catheter. 4. Hypertension. 5. Anemia of chronic disease. 6. Secondary hyperparathyroidism. 7. History of intravenous drug user. 8. History of ALLERGIES TO PENICILLIN, SULFA, VANCOMYCIN. RECOMMENDATIONS: 1. Continue linezolid and meropenem for now. 2. Follow up labs. 3. Follow up blood cultures if done at [place]. 4. Vascular Surgery is following the patient. 5. Elevate right upper extremity. 6. Continue supportive care. Thank you for allowing me to participate in this patient's care. We will follow along with you. Discussed with nursing staff. [place] [place]: [place] TID: [id number] MTDD
--- NOTE | 2021-05-10 16:13 | RAD ---
Clinical indications: Right arm swelling. History of right AV shunt. Findings: Duplex sonography (including hopper scale evaluation and color flow and waveform spectral be lysis) of the inferior aspect of the right internal jugular vein was performed. Duplex sonography (in cluding hopper scale evaluation and color flow and waveform spectral analysis) of the right subclavian vein as far as it could be visualized prior to it's descent underneath the medial aspect of the clavi rose was performed. Duplex sonography (including hopper scale evaluation and color flow and waveform spe ctral analysis) of the right axillary, brachial, basilic, cephalic, ulnar and radial veins was perfor med. Normal compressibility and augmentation of color Doppler flow after forearm compression is seen. Color-flow completely fills the lumen of these veins. Therefore, there are no sonographic findings o f deep venous thrombosis within these veins. An AV shunt is apparent extending from the right brachial artery to the brachial vein. The A-V shunt is patent. There is a small complex fluid collection around the shunt. The shunt was placed 2 months ago. This most likely represents a postoperative fluid collection therefore. Inflammation/infection a round the shunt cannot be excluded however. Impression: There are no sonographic findings of deep venous thrombosis within the veins discussed ab ove of the right upper extremity. Patent AV shunt of the right arm. Small fluid collection around the AV shunt which most likely is pos toperative in nature. Inflammation/infection of this area cannot be excluded however. Electronically signed by: Jacobo Hernandez MD (05/10/2021 4:10 PM) [id number]
[2021-05-10 19:10] VITALS: BP 148/89
[2021-05-10] MEDS: ALPRAZolam 0.5 MG TABLET PO PRN (20:02)
[2021-05-10] MEDS: MEROPENEM 500 MG in IV NORMAL SALINE 50ML 50 ML IV SCH (20:03)
[2021-05-10 23:11] VITALS: BP 131/76
[2021-05-11] MEDS: MORPHINE SULFATE 4 MG/ML INJ. IV PRN ×3 (01:14→21:00)
[2021-05-11 05:25] LABS: HEMOGLOBIN 7.7 g/dL (13.0-17.5); RED BLOOD COUNT 2.5 x10^6/uL (4.30-5.70); RED CELL DISTRIBUTION WIDTH 20.7 % (11.5-14.5); WHITE BLOOD COUNT 7.2 x10^3/uL (4.0-11.0)
[2021-05-11 05:39] LABS: CALCIUM 8.6 mg/dL (8.5-10.1); CREATININE 9.1 mg/dL (0.7-1.3); GFR 6.5
[2021-05-11 05:41] LABS: POTASSIUM 6.2 mmol/L (3.5-5.1)
[2021-05-11 07:00] VITALS: BP 150/87
[2021-05-11] MEDS: LINEZOLID 600 MG TABLET PO SCH ×2 (08:47→20:35)
[2021-05-11] MEDS: CALCIUM ACETATE 667 MG CAPSULE PO SCH ×3 (08:47→18:05)
[2021-05-11] MEDS: CETIRIZINE HCL 10 MG TABLET. PO SCH (08:47)
[2021-05-11] MEDS: oxyCODONE/APAP 10/325 1 TAB TABLET PO PRN ×2 (08:48→16:44)
[2021-05-11] MEDS: FOLIC/VIT B COMP W-C (RENAL) TABLET. PO SCH (08:48)
[2021-05-11] MEDS: cloNIDine HCL 0.1 MG TABLET PO SCH (08:48)
[2021-05-11] MEDS: PANTOPRAZOLE 40 MG TABLET.DR. PO SCH (08:49)
[2021-05-11] MEDS: CARVEDILOL 12.5 MG TABLET. PO SCH ×2 (08:49→18:05)
[2021-05-11] MEDS: GABAPENTIN 100 MG CAPSULE. PO SCH ×2 (08:49→20:35)
[2021-05-11] MEDS: LACTOBACILLUS RHAMNOSUS GG 1 CAPSULE. PO SCH ×2 (08:49→20:35)
--- NOTE | 2021-05-11 08:52 | PDOC ---
Infectious Disease Note Subjective: Subjective Patient continues to have pain and swelling of the right upper extremity Denies any fever, chills, nausea, vomiting, diarrhea or shortness of breath or cough Vital Signs: Vital Signs Vital Signs Date Time Temp Pulse Resp B/P (MAP) Pulse Ox O2 Delivery O2 Flow Rate FiO2 05/10/21 23:11 98.6 85 18 131/76 (94) 98 Room Air 98.6 Physical Exam: PHYSICAL EXAM GENERAL: Alert, oriented x 3, well-nourished, well-developed male, lying in bed comfortably, in no acute distress, HEENT: Normocephalic, atraumatic. Anicteric. No thrush. Oral mucosa moist. NECK: Supple, no JVD. Right IJ temporary dialysis catheter in place. LUNGS: Clear bilaterally. No wheezing. HEART: S1, S2. No gallops or murmurs. ABDOMEN: Soft, nontender, nondistended. Bowel sounds present. EXTREMITIES: Right upper extremity swelling present. There is an abrasion present lateral and distal aspect of the right AV shunt area. No surrounding redness, underlying fluctuance or drainage noted. Previous scar from recent graft is well healed. No drainage. There is mild tenderness present. Right upper extremity swelling extends to the fingers. No cyanosis or clubbing. CENTRAL NERVOUS SYSTEM: Alert, oriented x 3, grossly nonfocal. PSYCHIATRIC: Calm and cooperative. DERMATOLOGIC: Warm, dry, no generalized rash except for above. Medications: Inpatient Meds: Medications reviewed. Labs: Lab Laboratory Tests Test 05/11/21 03:50 White Blood Count 7.2 x10^3/uL (4.0-11.0) Red Blood Count 2.50 x10^6/uL (4.30-5.70) Hemoglobin 7.7 g/dL (13.0-17.5) Hematocrit 23.0 % (39.0-53.0) Mean Corpuscular Volume 92 fL (79-100) Mean Corpuscular Hemoglobin 31 pg (25-35) Mean Corpuscular Hemoglobin Concent 34 g/dL (31-37) Red Cell Distribution Width 20.7 % (11.5-14.5) Platelet Count 163 x10^3/uL (140-400) Sodium Level 130 mmol/L (136-145) Potassium Level 6.2 mmol/L (3.5-5.1) Chloride Level 95 mmol/L (98-107) Carbon Dioxide Level 23 mmol/L (21-32) Anion Gap 12 (6-14) Blood Urea Nitrogen 66 mg/dL (8-26) Creatinine 9.1 mg/dL (0.7-1.3) Estimated GFR (Cockcroft-Gault) 6.5 Glucose Level 93 mg/dL (70-99) Calcium Level 8.6 mg/dL (8.5-10.1) Objective: Assessment: Patient transferred from [place] with right upper extremity swelling and pain Ultrasound revealed right perigraft fluid collection 1. Possible right upper extremity infection with tenderness and swelling around the right arm AV shunt. Ultrasound at [facility] showed a fluid collection in the perigraft area. Vascular surgery has evaluated the patient. No surgical intervention planned at this time. 2. Superficial abrasion over the lateral and distal aspect of the right arm AV shunt. No underlying fluctuance to suggest abscess at this time. 3. End-stage renal disease, on hemodialysis, currently through a right temporary HDC catheter. Hyponatremia and hyperkalemia 4. Hypertension. 5. Anemia of chronic disease. 6. Secondary hyperparathyroidism. 7. History of intravenous drug user. 8. History of ALLERGIES TO PENICILLIN, SULFA, VANCOMYCIN. 9. History of noncompliance Plan: Plan of Care 1. Continue linezolid and meropenem for now. 2. Follow up labs. 3. Follow up cultures from [place] 4. Vascular Surgery is following the patient. 5. Elevate right upper extremity. 6. Continue supportive care. Discussed with nursing staff IVELISSE ORTEGA MD May 11, 2021 08:52
--- NOTE | 2021-05-11 10:19 | PDOC ---
PROGRESS NOTES Date of Service DATE: 05/11/21 TIME: 10:08 Subjective Subjective Patient complains of right upper arm pain and swelling. He reports a small amount of drainage along a small area lateral upper arm. He denies any fever or chills. Objective Objective Vital Signs Date Time Temp Pulse Resp B/P (MAP) Pulse Ox O2 Delivery O2 Flow Rate FiO2 05/11/21 08:49 85 131/76 05/11/21 07:00 98.0 18 99 Room Air 98.0 Intake and Output 05/11/21 07:00 Intake Total 1800 ml Balance 1800 ml Intake Oral 1800 ml Physical Exam Physical Exam Awake and alert Heart rate regular Nonlabored respirations Right upper extremity swollen from fingertips to axilla. There is no significant erythema or fluctuance along the course of his AV graft. There is a small area punctate wound from previous scab that is draining a small amount, it is difficult to ascertain if it purulent. Motor and sensation intact. Assessment Assessment 40-year-old male with chronic renal failure on hemodialysis. He has a right upper arm arteriovenous graft which now has a small area of ulceration and drainage. Recommend repeat ultrasound to identify large fluid collection. Will obtain culture of fluid. Pending results of the ultrasound and cultures will make additional recommendations. At this time would recommend continue antibiotics and local wound care. The patient has a history of previous graft infection in his left arm and difficulty with catheter placement therefore we would prefer to attempt to salvage his access due to limited access options. I discussed plan of care with Dr. Rodriguez, the patient and Lilian the patient's nurse. Comment Review of Relevant I have reviewed the following items guerda (where applicable) has been applied. Labs Laboratory Tests Test 05/10/21 05:15 05/11/21 03:50 White Blood Count 7.0 x10^3/uL (4.0-11.0) 7.2 x10^3/uL (4.0-11.0) Red Blood Count 2.63 x10^6/uL (4.30-5.70) 2.50 x10^6/uL (4.30-5.70) Hemoglobin 8.0 g/dL (13.0-17.5) 7.7 g/dL (13.0-17.5) Hematocrit 24.0 % (39.0-53.0) 23.0 % (39.0-53.0) Mean Corpuscular Volume 91 fL (79-100) 92 fL (79-100) Mean Corpuscular Hemoglobin 30 pg (25-35) 31 pg (25-35) Mean Corpuscular Hemoglobin Concent 33 g/dL (31-37) 34 g/dL (31-37) Red Cell Distribution Width 20.4 % (11.5-14.5) 20.7 % (11.5-14.5) Platelet Count 161 x10^3/uL (140-400) 163 x10^3/uL (140-400) Sodium Level 133 mmol/L (136-145) 130 mmol/L (136-145) Potassium Level 5.3 mmol/L (3.5-5.1) 6.2 mmol/L (3.5-5.1) Chloride Level 96 mmol/L (98-107) 95 mmol/L (98-107) Carbon Dioxide Level 24 mmol/L (21-32) 23 mmol/L (21-32) Anion Gap 13 (6-14) 12 (6-14) Blood Urea Nitrogen 56 mg/dL (8-26) 66 mg/dL (8-26) Creatinine 7.7 mg/dL (0.7-1.3) 9.1 mg/dL (0.7-1.3) Estimated GFR (Cockcroft-Gault) 7.9 6.5 Glucose Level 95 mg/dL (70-99) 93 mg/dL (70-99) Calcium Level 8.5 mg/dL (8.5-10.1) 8.6 mg/dL (8.5-10.1) Laboratory Tests Test 05/11/21 03:50 White Blood Count 7.2 x10^3/uL (4.0-11.0) Red Blood Count 2.50 x10^6/uL (4.30-5.70) Hemoglobin 7.7 g/dL (13.0-17.5) Hematocrit 23.0 % (39.0-53.0) Mean Corpuscular Volume 92 fL (79-100) Mean Corpuscular Hemoglobin 31 pg (25-35) Mean Corpuscular Hemoglobin Concent 34 g/dL (31-37) Red Cell Distribution Width 20.7 % (11.5-14.5) Platelet Count 163 x10^3/uL (140-400) Sodium Level 130 mmol/L (136-145) Potassium Level 6.2 mmol/L (3.5-5.1) Chloride Level 95 mmol/L (98-107) Carbon Dioxide Level 23 mmol/L (21-32) Anion Gap 12 (6-14) Blood Urea Nitrogen 66 mg/dL (8-26) Creatinine 9.1 mg/dL (0.7-1.3) Estimated GFR (Cockcroft-Gault) 6.5 Glucose Level 93 mg/dL (70-99) Calcium Level 8.6 mg/dL (8.5-10.1) Medications Current Medications Morphine Sulfate (Morphine Sulfate) 4 mg PRN Q2HR PRN IV SEVERE PAIN 7-10 Last administered on 05/11/21at 08:53; Start 05/08/21 at 23:15 Piperacillin Sod/ Tazobactam Sod (Zosyn Per Pharmacy) 1 each PRN DAILY PRN MC SEE COMMENTS; Start 05/08/21 at 23:15; Stop 05/09/21 at 00:14; Status DC Vancomycin HCl (Vanco Per Pharmacy) 1 each PRN DAILY PRN MC SEE COMMENTS; Start 05/08/21 at 23:15; Stop 05/09/21 at 00:14; Status DC Diphenhydramine HCl (Benadryl) 25 mg PRN QHS PRN PO INSOMNIA; Start 05/08/21 at 23:15 Alprazolam (Xanax) 0.5 mg PRN Q6HRS PRN PO ANXIETY / AGITATION Last administered on 05/10/21at 20:02; Start 05/08/21 at 23:15 Gabapentin (Neurontin) 100 mg BID PO Last administered on 05/11/21at 08:49; Start 05/09/21 at 00:00 Ondansetron HCl (Zofran) 4 mg PRN Q4HRS PRN IVP NAUSEA/VOMITING 1ST CHOICE; Start 05/08/21 at 23:15 Pantoprazole Sodium (Protonix) 40 mg DAILYAC PO Last administered on 05/11/21at 08:49; Start 05/09/21 at 07:30 Cetirizine HCl (ZyrTEC) 10 mg DAILY PO Last administered on 05/11/21at 08:47; Start 05/09/21 at 09:00 Clonidine HCl (Catapres) 0.1 mg DAILY PO Last administered on 05/11/21 08:48; Start 05/09/21 at 09:00 Vitamin B Complex/ Vitamin C (Diane-Jerrod) 1 tab DAILY PO Last administered on 05/11/21at 08:48; Start 05/09/21 at 09:00 Calcium Acetate (Phoslo) 667 mg TIDWMEALS PO Last administered on 05/11/21 08:47; Start 05/09/21 at 08:00 Carvedilol (Coreg) 25 mg BIDWMEALS PO Last administered on 05/11/21 08:49; Start 05/09/21 at 08:00 Hydralazine HCl (Apresoline) 100 mg DAILY PO Last administered on 05/11/21 08:48; Start 05/09/21 at 09:00 Linezolid (Zyvox) 600 mg BID PO ; Start 05/09/21 at 00:30; Stop 05/09/21 at 04:1 1; Status DC Meropenem 500 mg/ Sodium Chloride 50 ml @ 100 mls/hr QHS IV Last administered on 05/10/21at 20:03; Start 05/09/21 at 00:30 Linezolid/Dextrose 300 ml @ 300 mls/hr Q12HR IV Last administered on 05/09/21at 20:13; Start 05/09/21 at 05:00; Stop 05/09/21 at 23:55; Status DC Darbepoetin Uriel (ARANESP for DIALYSIS PTS) 40 mcg WEEKLYHS SQ ; Start 05/09/21 at 21:00 Darbepoetin Uriel (ARANESP for DIALYSIS PTS) 25 mcg WEEKLYHS SQ ; Start 05/09/21 at 21:00 Oxycodone/ Acetaminophen (Percocet 10/325) 1 tab PRN Q6HRS PRN PO PAIN Last administered on 05/11/21 08:48; Start 05/09/21 at 13:00 Lactobacillus Rhamnosus (Culturelle) 1 cap BID PO Last administered on 05/11/21 08:49; Start 05/09/21 at 21:00 Linezolid (Zyvox) 600 mg BID PO Last administered on 8/16/21at 08:47; Start 05/10/21 at 09:00 Active Scripts Active Reported Carvedilol 25 Mg Tablet 25 Mg PO BIDWMEALS Renaplex-D Tablet (B,C/Folic/Zinc/Selenometh/D3/E) 1 Each Tablet 1 Each PO DAILY Clonidine Hcl 0.1 Mg Tablet 0.1 Mg PO DAILY Hydralazine Hcl 100 Mg Tablet 1 Tab PO DAILY Calcium Acetate 667 Mg Tablet 1 Tab PO TID 30 Days Cetirizine Hcl 10 Mg Tablet 1 Tab PO DAILY Vitals/I & O Vital Sign - Last 24 Hours 05/10/21 05/10/21 05/10/21 05/10/21 11:00 11:05 11:06 15:00 Temp 98.1 97.9 98.1 97.9 Pulse 88 99 99 90 Resp 18 18 B/P (MAP) 132/63 (86) 162/95 162/95 132/78 (96) Pulse Ox 98 97 O2 Delivery Room Air Room Air 05/10/21 05/10/21 05/10/21 05/10/21 17:42 19:10 20:00 23:11 Temp 98.7 98.6 98.7 98.6 Pulse 90 91 85 Resp 18 18 B/P (MAP) 132/78 148/89 (108) 131/76 (94) Pulse Ox 96 98 O2 Delivery Room Air Room Air Room Air 05/11/21 05/11/21 05/11/21 05/11/21 07:00 08:48 08:48 08:49 Temp 98.0 98.0 Pulse 91 85 85 85 Resp 18 B/P (MAP) 150/87 (108) 131/76 131/76 131/76 Pulse Ox 99 O2 Delivery Room Air Intake and Output 05/10/21 05/10/21 05/11/21 15:00 23:00 07:00 Intake Total 720 ml 840 ml 240 ml Balance 720 ml 840 ml 240 ml Justifications for Admission Other Justification THERESA BUNCH APRN May 11, 2021 10:19
--- NOTE | 2021-05-11 10:28 | PDOC ---
Renal-Progress Notes Subjective Notes Notes ARM PAIN History of Present Illness Hx of present illness STABLE Vitals Vitals Vital Signs Date Time Temp Pulse Resp B/P (MAP) Pulse Ox O2 Delivery O2 Flow Rate FiO2 05/11/21 08:49 85 131/76 05/11/21 07:00 98.0 18 99 Room Air 98.0 Weight Weight [ ] I.O. Intake and Output Intake and Output 05/11/21 07:00 Intake Total 1800 ml Balance 1800 ml Intake Oral 1800 ml Labs Labs Laboratory Tests Test 05/11/21 03:50 White Blood Count 7.2 x10^3/uL (4.0-11.0) Red Blood Count 2.50 x10^6/uL (4.30-5.70) Hemoglobin 7.7 g/dL (13.0-17.5) Hematocrit 23.0 % (39.0-53.0) Mean Corpuscular Volume 92 fL (79-100) Mean Corpuscular Hemoglobin 31 pg (25-35) Mean Corpuscular Hemoglobin Concent 34 g/dL (31-37) Red Cell Distribution Width 20.7 % (11.5-14.5) Platelet Count 163 x10^3/uL (140-400) Sodium Level 130 mmol/L (136-145) Potassium Level 6.2 mmol/L (3.5-5.1) Chloride Level 95 mmol/L (98-107) Carbon Dioxide Level 23 mmol/L (21-32) Anion Gap 12 (6-14) Blood Urea Nitrogen 66 mg/dL (8-26) Creatinine 9.1 mg/dL (0.7-1.3) Estimated GFR (Cockcroft-Gault) 6.5 Glucose Level 93 mg/dL (70-99) Calcium Level 8.6 mg/dL (8.5-10.1) Review of Systems Constitutional: yes: weakness, alert, oriented Ears/Nose/Throat: Yes: no symptom reported Eyes: Yes: no symptom reported Pulmonary: Yes no symptom reported Cardiovascular: Yes no symptom reported Gastrointestional: Yes: constipation Genitourinary: Yes: no symptom reported Musculoskeletal: Yes: arm pain, muscle stiffness Skin: Yes no symptom reported Psychiatric/Neurological: Yes: no symptom reported Endocrine: Yes: no symptom reported Physical Exam General Appearance: no apparent distress Skin: warm Respiratory: bilateral CTA Heart: S1S2 Abdomen: soft, bowel sounds present Genitourinary: bladder flat Extremities: pulses present, other (RIGHT ARM AVG WITH TENDERNESS, ERYTHEMA, THRILL AND BRUIT PRESENT) Neurology: alert, oriented Assessment Assessment IMP HYPERKALEMIA ESRD-TTS MPGN ANEMIA HTN GLUCOSE INTOLERANCE POSS LINE SEPSIS RIGHT ARM BB AVG SITE INFECTION IVDA PLAN ANTIBIOTICS ARANESP HD TODAY UF TO TW VASCULAR SURGERY EVALUATION ENC ABSTINENCE FROM IVDA WILL FOLLOW D/W VASCULAR SURGERY ITZEL ARAYA MD May 11, 2021 10:28
--- NOTE | 2021-05-11 10:59 | NUR ---
SW following. Discussed with RN, pt from home with father and , room air, renal diet. Pt does dialysis. Nephrology, ID and Vascular following. SW verifying if pt was seen by PAT team. SW will continue to follow.
[2021-05-11 11:00] VITALS: BP 136/76
--- NOTE | 2021-05-11 11:44 | PDOC ---
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 Pending TTE Vascular surgery consult Consider ID consult Nephrology consult for HD Continue empiric IV antibiotics Pending blood cultures Heparin for DVT prophylaxis Protonix GI prophylaxis ADA diet Full code Discussed with RN and SW Disposition inpatient management as above Surrogate decision maker is History of Present Illness History of Present Illness 40-year-old male with past medical history of ESRD TTS, IV drug abuse, noncompliance, and multiple times at [facility] for partially occluded temporary dialysis catheters and infections. Apparently, he was lost to follow-up at [facility] but he did go to [place] and had an AV graft placed and has been used for approximately 4 weeks. Of note when patient was at [place] his hemoglobin was 6.9 and he needed transfusion. The graft was also evaluated and ultrasound that showed no focal stenosis in the fistula however there was fluid adjacent to the graft itself that was consistent with an abscess. Patient only complains of pain and swelling around her his upper extremity. Denies any fevers, chest pain, shortness of breath, abdominal pain, dysuria, diarrhea or bloody stools. Patient was transferred over here to [place] for vascular surgery support and evaluation. 05/10/2021 No acute events overnight. Afebrile. Labs are stable. Patient only complains of throbbing right arm pain. Patient's chart, labs, images were reviewed and discussed with RN No overnight events afebrile. Labs stable. Still complaining of throbbing right arm pain. K6.2 today. He is more swollen he has been eating and liberalized his fluid intake over the last couple days. Discussed with microbiology lab [facility] is Enterococcus positive blood cultures. Vitals/I&O Vitals/I&O: Vital Signs Date Time Temp Pulse Resp B/P (MAP) Pulse Ox O2 Delivery O2 Flow Rate FiO2 05/11/21 08:49 85 131/76 05/11/21 07:00 98.0 18 99 Room Air 98.0 I & O 05/10/21 05/10/2121 15:00 23:00 07:00 Intake Total 720 ml 840 ml 240 ml Balance 720 ml 840 ml 240 ml Physical Exam Physical Exam: GENERAL: Alert, oriented x 3, well-nourished, well-developed male, lying in bed comfortably, in no acute distress, HEENT: Normocephalic, atraumatic. Anicteric. No thrush. Oral mucosa moist. NECK: Supple, no JVD. Right IJ temporary dialysis catheter in place. LUNGS: Clear bilaterally. No wheezing. HEART: S1, S2. No gallops or murmurs. ABDOMEN: Soft, nontender, nondistended. Bowel sounds present. EXTREMITIES: Right upper extremity swelling present. There is an abrasion present lateral and distal aspect of the right AV shunt area. No surrounding redness, underlying fluctuance or drainage noted. Previous scar from recent graft is well healed. No drainage. There is mild tenderness present. Right upper extremity swelling extends to the fingers. No cyanosis or clubbing. CENTRAL NERVOUS SYSTEM: Alert, oriented x 3, grossly nonfocal. PSYCHIATRIC: Calm and cooperative. DERMATOLOGIC: Warm, dry, no generalized rash except for above. General: Alert, Oriented X3, Cooperative, No acute distress Heart: Regular rate, Normal S1, Normal S2 Abdomen: Normal bowel sounds Extremities: No clubbing, Other (Tenderness in the right arm near the AV graft site. Increased swelling at the right upper extremity.) Skin: No breakdown Labs Labs: Laboratory Tests Test 05/11/21 03:50 White Blood Count 7.2 x10^3/uL (4.0-11.0) Red Blood Count 2.50 x10^6/uL (4.30-5.70) Hemoglobin 7.7 g/dL (13.0-17.5) Hematocrit 23.0 % (39.0-53.0) Mean Corpuscular Volume 92 fL (79-100) Mean Corpuscular Hemoglobin 31 pg (25-35) Mean Corpuscular Hemoglobin Concent 34 g/dL (31-37) Red Cell Distribution Width 20.7 % (11.5-14.5) Platelet Count 163 x10^3/uL (140-400) Sodium Level 130 mmol/L (136-145) Potassium Level 6.2 mmol/L (3.5-5.1) Chloride Level 95 mmol/L (98-107) Carbon Dioxide Level 23 mmol/L (21-32) Anion Gap 12 (6-14) Blood Urea Nitrogen 66 mg/dL (8-26) Creatinine 9.1 mg/dL (0.7-1.3) Estimated GFR (Cockcroft-Gault) 6.5 Glucose Level 93 mg/dL (70-99) Calcium Level 8.6 mg/dL (8.5-10.1) Comment Review of Relevant I have reviewed the following items guerda (where applicable) has been applied. Justifications for Admission Other Justification SERGIO GRAF MD May 11, 2021 11:44
[2021-05-11] MEDS ORDERED: DIALYSIS PATIENT. MC PRN (14:00)
[2021-05-11] MEDS ORDERED: IV NORMAL SALINE 1000ML BAG 1,000 ML IV PRN ×2 (14:00)
--- NOTE | 2021-05-11 15:07 | RAD ---
INDICATION: Reason: eval for drainage and fluid collection right upper arm / Spl. Instructions: / H istory: COMPARISON: None. FINDINGS: Focused ultrasound images are obtained of the right upper arm at the region of concern for swelling. Just superior to the antecubital fossa there is a 37 x 9 x 15 mm hypoechoic region surrounding the fi stula site. Edema of soft tissues IMPRESSION: * Hypoechoic material is seen within the arm surrounding the site of fistula. This could be seconda ry to confluence of edema within the region and possible causes would include hematoma within the sof t tissues as well as phlegmon formation if the patient has infectious symptoms. There is some interna l vascularity therefore this does not have the appearance of a well-defined drainable fluid collectio n such as walled off abscess at this time but could be a developing fluid collection. Electronically signed by: Kevin Zee MD (05/11/2021 3:05 PM) [id number]
[2021-05-11 19:00] VITALS: BP 139/76
[2021-05-11] MEDS: MEROPENEM 500 MG in IV NORMAL SALINE 50ML 50 ML IV SCH (20:35)
[2021-05-11] MEDS: ALPRAZolam 0.5 MG TABLET PO PRN (20:35)
[2021-05-11 23:00] VITALS: BP 132/72
[2021-05-12] MEDS: MORPHINE SULFATE 4 MG/ML INJ. IV PRN ×2 (02:06→05:53)
[2021-05-12] MEDS: oxyCODONE/APAP 10/325 1 TAB TABLET PO PRN ×2 (02:06→23:50)
[2021-05-12 03:00] VITALS: BP 126/68
[2021-05-12 07:00] VITALS: BP 148/86
--- NOTE | 2021-05-12 07:36 | NUR ---
heavy truck mechanic removed patient will not keep on
[2021-05-12] MEDS: CARVEDILOL 12.5 MG TABLET. PO SCH ×2 (08:00→15:53)
[2021-05-12] MEDS ORDERED: DIALYSIS PATIENT. MC PRN ×3 (08:30→09:15)
[2021-05-12] MEDS ORDERED: LIDOCAINE 1% PF 2 ML VIAL. INJ PRN (09:15)
[2021-05-12] MEDS ORDERED: ALBUMIN HUMAN 25% 200 ML IV PRN (09:15)
[2021-05-12] MEDS ORDERED: ACETAMINOPHEN 500 MG TABLET PO PRN (09:15)
[2021-05-12] MEDS ORDERED: IV NORMAL SALINE 1000ML BAG 1,000 ML IV PRN ×2 (09:15)
[2021-05-12] MEDS ORDERED: diphenhydrAMINE 50 MG/ML VIAL IV PRN (09:15)
[2021-05-12] MEDS ORDERED: fentaNYL PF VIAL 100 MCG/2 ML VIAL IVP PRN (09:45)
[2021-05-12] MEDS: CALCIUM ACETATE 667 MG CAPSULE PO SCH ×3 (09:49→17:52)
[2021-05-12] MEDS: GABAPENTIN 100 MG CAPSULE. PO SCH ×2 (09:50→20:36)
[2021-05-12] MEDS: PANTOPRAZOLE 40 MG TABLET.DR. PO SCH (09:50)
--- NOTE | 2021-05-12 10:54 | PDOC ---
Infectious Disease Note Subjective: Subjective Patient continues to have pain and swelling of the right upper extremity Vital Signs: Vital Signs Vital Signs Date Time Temp Pulse Resp B/P (MAP) Pulse Ox O2 Delivery O2 Flow Rate FiO2 05/12/21 09:49 Room Air 05/12/21 07:00 97.9 93 18 148/86 (106) 98 97.9 Physical Exam: PHYSICAL EXAM GENERAL: Alert, oriented x 3, well-nourished, well-developed male, lying in bed comfortably, in no acute distress, HEENT: Normocephalic, atraumatic. Anicteric. No thrush. Oral mucosa moist. NECK: Supple, no JVD. Right IJ temporary dialysis catheter in place. LUNGS: Clear bilaterally. No wheezing. HEART: S1, S2. No gallops or murmurs. ABDOMEN: Soft, nontender, nondistended. Bowel sounds present. EXTREMITIES: Right upper extremity swelling present. There is an abrasion present lateral and distal aspect of the right AV shunt area with some drainage. No surrounding redness, underlying fluctuance or drainage noted. Previous scar from recent graft is well healed. No drainage. There is mild tenderness present. Right upper extremity swelling extends to the fingers. No cyanosis or clubbing. CENTRAL NERVOUS SYSTEM: Alert, oriented x 3, grossly nonfocal. PSYCHIATRIC: Calm and cooperative. DERMATOLOGIC: Warm, dry, no generalized rash except for above. Medications: Inpatient Meds: Medications reviewed. Objective: Assessment: Patient transferred from [place] with right upper extremity swelling and pain Ultrasound revealed right perigraft fluid collection Enterococcus ampicillin sensitive, daptomycin sensitive, and staph hominis bacteremia May 05, 2021 from [facility] 1. Possible right upper extremity infection with tenderness and swelling around the right arm AV shunt. Ultrasound at [facility] showed a fluid collection in the perigraft area. Vascular surgery has evaluated the patient. No surgical intervention planned at this time. 2. Superficial abrasion over the lateral and distal aspect of the right arm AV shunt. No underlying fluctuance to suggest abscess at this time. 3. End-stage renal disease, on hemodialysis, currently through a right temporary HDC catheter. Hyponatremia and hyperkalemia 4. Hypertension. 5. Anemia of chronic disease. 6. Secondary hyperparathyroidism. 7. History of intravenous drug user. 8. History of ALLERGIES TO PENICILLIN, SULFA, VANCOMYCIN. 9. History of noncompliance Plan: Plan of Care Limited choices for antibiotic management for this patient 1. Continue meropenem DC linezolid 2. Follow up labs. Follow-up repeat blood cultures here and swab cultures 3. Blood culture results from [facility] 4. Vascular Surgery is following the patient. No surgical intervention planned They want to give trial with antibiotics at this time. Patient may need surgical intervention if no improvement. 5. Elevate right upper extremity. 6. Continue supportive care. Discussed with nursing staff IVELISSE ORTEGA MD May 12, 2021 10:54
--- NOTE | 2021-05-12 10:54 | NUR ---
SW following. Discussed with RN, PAT team met with pt yesterday - cleared pt, pt reports he is getting support from a [employer] group. RN advised no other SW needs. SW will continue to follow.
[2021-05-12 11:00] VITALS: BP 149/85
--- NOTE | 2021-05-12 11:42 | PDOC ---
Renal-Progress Notes Subjective Notes Notes STILL HAS RIGHT ARM PAIN History of Present Illness Hx of present illness STABLE Vitals Vitals Vital Signs Date Time Temp Pulse Resp B/P (MAP) Pulse Ox O2 Delivery O2 Flow Rate FiO2 05/12/21 09:49 Room Air 05/12/21 07:00 97.9 93 18 148/86 (106) 98 97.9 Weight Weight [ ] I.O. Intake and Output Intake and Output 05/12/21 07:00 Output Total 0 ml Balance 0 ml Output Urine Total 0 ml # Bowel Movements 2 Micro Micro Microbiology 05/11/21 Gram Stain - Final, Resulted 05/11/21 Aerobic and Anaerobic Culture, Resulted Pending Review of Systems Constitutional: yes: weakness, alert, oriented Ears/Nose/Throat: Yes: no symptom reported Eyes: Yes: no symptom reported Pulmonary: Yes no symptom reported Cardiovascular: Yes no symptom reported Gastrointestional: Yes: constipation Genitourinary: Yes: no symptom reported Musculoskeletal: Yes: arm pain, muscle stiffness Skin: Yes no symptom reported Psychiatric/Neurological: Yes: no symptom reported Endocrine: Yes: no symptom reported Physical Exam General Appearance: no apparent distress Skin: warm Respiratory: bilateral CTA Heart: S1S2 Abdomen: soft, bowel sounds present Genitourinary: bladder flat Extremities: pulses present, other (RIGHT ARM AVG WITH TENDERNESS, ERYTHEMA, THRILL AND BRUIT PRESENT) Neurology: alert, oriented Assessment Assessment IMP HYPERKALEMIA ESRD-TTS MPGN ANEMIA HTN GLUCOSE INTOLERANCE POSS LINE SEPSIS RIGHT ARM BB AVG SITE INFECTION IVDA PLAN ANTIBIOTICS ARANESP HD TODAY UF TO TW VASCULAR SURGERY EVALUATION ENC ABSTINENCE FROM IVDA WILL CONVERT TEMP TO TDC WILL FOLLOW D/W VASCULAR SURGERY ITZEL ARAYA MD May 12, 2021 11:42
--- NOTE | 2021-05-12 12:06 | PDOC ---
PROGRESS NOTES Date of Service DATE: 05/12/21 TIME: 12:00 Subjective Subjective Continues to endorse significant right arm pain and swelling. Dialyzed yesterday through the catheter in R IJ. Objective Objective Vital Signs Date Time Temp Pulse Resp B/P (MAP) Pulse Ox O2 Delivery O2 Flow Rate FiO2 05/12/21 09:49 Room Air 05/12/21 07:00 97.9 93 18 148/86 (106) 98 97.9 Intake and Output 05/12/21 07:00 Output Total 0 ml Balance 0 ml Output Urine Total 0 ml # Bowel Movements 2 CV: +2 radial/ulnar pulse on right SKIN: minimal expressible drainage from right upper arm and perigraft. Edema involving arm and minimal erythema surrounding a lateral puncutre site on upper arm MSK: Normal strength right hand Physical Exam Heart: Regular rate Neuro: Normal speech, Sensation intact Assessment Assessment 1. Right arm AV graft with surrounding fluid collection. Likely hematoma related to access and less likely infection. Plan Plan of Care Would continue broad spectrum antibiotics and medical management. Continue to rest graft. Gram stain from yesterday has grown no organisms but awaiting final cultures. As discussed by my partners if need to excise graft would leave him with large wound and limited access options given that he has had a previous left AV graft removed for infection. Comment Review of Relevant I have reviewed the following items guerda (where applicable) has been applied. Labs Laboratory Tests Test 05/11/21 03:50 White Blood Count 7.2 x10^3/uL (4.0-11.0) Red Blood Count 2.50 x10^6/uL (4.30-5.70) Hemoglobin 7.7 g/dL (13.0-17.5) Hematocrit 23.0 % (39.0-53.0) Mean Corpuscular Volume 92 fL (79-100) Mean Corpuscular Hemoglobin 31 pg (25-35) Mean Corpuscular Hemoglobin Concent 34 g/dL (31-37) Red Cell Distribution Width 20.7 % (11.5-14.5) Platelet Count 163 x10^3/uL (140-400) Sodium Level 130 mmol/L (136-145) Potassium Level 6.2 mmol/L (3.5-5.1) Chloride Level 95 mmol/L (98-107) Carbon Dioxide Level 23 mmol/L (21-32) Anion Gap 12 (6-14) Blood Urea Nitrogen 66 mg/dL (8-26) Creatinine 9.1 mg/dL (0.7-1.3) Estimated GFR (Cockcroft-Gault) 6.5 Glucose Level 93 mg/dL (70-99) Calcium Level 8.6 mg/dL (8.5-10.1) Hepatitis B Surface Antigen Nonreactive (Nonreactive) Microbiology 05/11/21 Gram Stain - Final, Resulted 05/11/21 Aerobic and Anaerobic Culture, Resulted Pending Medications Current Medications Morphine Sulfate (Morphine Sulfate) 4 mg PRN Q2HR PRN IV SEVERE PAIN 7-10 Last administered on 05/12/21at 05:53; Start 05/08/21 at 23:15; Stop 05/12/21 at 09:33; Status DC Piperacillin Sod/ Tazobactam Sod (Zosyn Per Pharmacy) 1 each PRN DAILY PRN MC SEE COMMENTS; Start 05/08/21 at 23:15; Stop 05/09/21 at 00:14; Status DC Vancomycin HCl (Vanco Per Pharmacy) 1 each PRN DAILY PRN MC SEE COMMENTS; Start 05/08/21 at 23:15; Stop 05/09/21 at 00:14; Status DC Diphenhydramine HCl (Benadryl) 25 mg PRN QHS PRN PO INSOMNIA; Start 05/08/21 at 23:15 Alprazolam (Xanax) 0.5 mg PRN Q6HRS PRN PO ANXIETY / AGITATION Last administer ed on 05/11/21at 20:35; Start 05/08/21 at 23:15 Gabapentin (Neurontin) 100 mg BID PO Last administered on 05/12/21at 09:50; Start 05/09/21 at 00:00 Ondansetron HCl (Zofran) 4 mg PRN Q4HRS PRN IVP NAUSEA/VOMITING 1ST CHOICE; Start 05/08/21 at 23:15 Pantoprazole Sodium (Protonix) 40 mg DAILYAC PO Last administered on 05/12/21at 09:50; Start 05/09/21 at 07:30 Cetirizine HCl (ZyrTEC) 10 mg DAILY PO Last administered on 05/11/21at 08:47; Start 05/09/21 at 09:00 Clonidine HCl (Catapres) 0.1 mg DAILY PO Last administered on 05/11/21 08:48; Start 05/09/21 at 09:00 Vitamin B Complex/ Vitamin C (Diane-Jerrod) 1 tab DAILY PO Last administered on 05/11/21at 08:48; Start 05/09/21 at 09:00 Calcium Acetate (Phoslo) 667 mg TIDWMEALS PO Last administered on 05/12/21at 09:49; Start 05/09/21 at 08:00 Carvedilol (Coreg) 25 mg BIDWMEALS PO Last administered on 05/11/21at 18:05; Start 05/09/21 at 08:00 Hydralazine HCl (Apresoline) 100 mg DAILY PO Last administered on 05/11/21 08:48; Start 05/09/21 at 09:00 Linezolid (Zyvox) 600 mg BID PO ; Start 05/09/21 at 00:30; Stop 05/09/21 at 04:11; Status DC Meropenem 500 mg/ Sodium Chloride 50 ml @ 100 mls/hr QHS IV Last administered on 05/11/21at 20:35; Start 05/09/21 at 00:30 Linezolid/Dextrose 300 ml @ 300 mls/hr Q12HR IV Last administered on 05/09/21at 20:13; Start 05/09/21 at 05:00; Stop 05/09/21 at 23:55; Status DC Darbepoetin Uriel (ARANESP for DIALYSIS PTS) 40 mcg WEEKLYHS SQ ; Start 05/09/21 at 21:00 Darbepoetin Uriel (ARANESP for DIALYSIS PTS) 25 mcg WEEKLYHS SQ ; Start 05/09/21 at 21:00 Oxycodone/ Acetaminophen (Percocet 10/325) 1 tab PRN Q6HRS PRN PO PAIN Last administered on 05/12/21at 02:06; Start 05/09/21 at 13:00 Lactobacillus Rhamnosus (Culturelle) 1 cap BID PO Last administered on 05/11/21at 20:35; Start 05/09/21 at 21:00 Linezolid (Zyvox) 600 mg BID PO Last administered on 05/11/21at 20:35; Start 05/10/21 at 09:00; Stop 05/12/21 at 10:55; Status DC Sodium Chloride 1,000 ml @ 1,000 mls/hr Q1H PRN IV hypotension; Start 05/11/21 at 14:00; Stop 05/11/21 at 19:59; Status DC Sodium Chloride 1,000 ml @ 400 mls/hr Q2H30M PRN IV PATENCY; Start 05/11/21 at 14:00; Stop 05/12/21 at 01:59; Status DC Info (PHARMACY MONITORING -- do not chart) 1 each PRN DAILY PRN MC SEE COMMENTS; Start 05/11/21 at 14:00 Info (PHARMACY MONITORING -- do not chart) 1 each PRN DAILY PRN MC SEE COMMENTS; Start 05/12/21 at 08:30 Info (PHARMACY MONITORING -- do not chart) 1 each PRN DAILY PRN MC SEE COMMENTS; Start 05/12/21 at 08:30; Status UNV Sodium Chloride 1,000 ml @ 1,000 mls/hr Q1H PRN IV hypotension; Start 05/12/21 at 09:15; Stop 05/12/21 at 15:14 Albumin Human 200 ml @ 200 mls/hr 1X PRN PRN IV Hypotension; Start 05/12/21 at 09:15; Stop 05/12/21 at 15:14 Acetaminophen (Tylenol) 500 mg 1X PRN PRN PO MILD PAIN / TEMP > 100.3'F; Start 05/12/21 at 09:15; Stop 05/13/21 at 09:14 Diphenhydramine HCl (Benadryl) 25 mg 1X PRN PRN IV ITCHING; Start 05/12/21 at 09:15; Stop 05/13/21 at 09:14 Sodium Chloride 1,000 ml @ 400 mls/hr Q2H30M PRN IV PATENCY; Start 05/12/21 at 09:15; Stop 05/12/21 at 21:14 Lidocaine HCl (Xylocaine-Mpf 1% 2ml Vial) 2 ml 1X PRN PRN INJ FOR DIALYSIS; Start 05/12/21 at 09:15; Stop 05/13/21 at 09:14 Info (PHARMACY MONITORING -- do not chart) 1 each PRN DAILY PRN MC SEE COMMENTS; Start 05/12/21 at 09:15; Status UNV Fentanyl Citrate (Fentanyl 2ml Vial) 25 mcg PRN Q3HRS PRN IVP SEVERE PAIN 7-10 Last administered on 05/12/21at 09:49; Start 05/12/21 at 09:45 Active Scripts Active Reported Carvedilol 25 Mg Tablet 25 Mg PO BIDWMEALS Renaplex-D Tablet (B,C/Folic/Zinc/Selenometh/D3/E) 1 Each Tablet 1 Each PO DAILY Clonidine Hcl 0.1 Mg Tablet 0.1 Mg PO DAILY Hydralazine Hcl 100 Mg Tablet 1 Tab PO DAILY Calcium Acetate 667 Mg Tablet 1 Tab PO TID 30 Days Cetirizine Hcl 10 Mg Tablet 1 Tab PO DAILY Vitals/I & O Vital Sign - Last 24 Hours 05/11/21 05/11/21 05/11/21 05/11/21 18:05 19:00 20:20 21:00 Temp 98.0 98.0 Pulse 82 95 Resp 20 B/P (MAP) 145/65 139/76 (97) Pulse Ox 97 97 O2 Delivery Room Air Room Air Room Air 05/11/21 05/11/21 05/12/21 05/12/21 21:30 23:00 02:06 02:06 Temp 98.6 98.6 Pulse 91 Resp 18 B/P (MAP) 132/72 (92) Pulse Ox 97 97 97 97 O2 Delivery Room Air Room Air Room Air Room Air 05/12/21 05/12/21 05/12/21 05/12/21 02:36 02:36 03:00 05:53 Temp 98.1 98.1 Pulse 90 Resp 18 B/P (MAP) 126/68 (87) Pulse Ox 97 97 97 97 O2 Delivery Room Air Room Air Room Air Room Air 05/12/21 05/12/21 05/12/21 06:23 07:00 09:49 Temp 97.9 97.9 Pulse 93 Resp 18 B/P (MAP) 148/86 (106) Pulse Ox 97 98 O2 Delivery Room Air Room Air Room Air Intake and Output 05/11/21 05/11/21 05/12/21 15:00 23:00 07:00 Output Total 0 ml 0 ml Balance 0 ml 0 ml Justifications for Admission Other Justification CHINYERE VARELA MD May 12, 2021 12:06
--- NOTE | 2021-05-12 14:11 | PDOC ---
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 Enterococcus bacteremia - sensitivities from microbiology lab faxed over Pending TTE Vascular surgery consult Consider ID consult Nephrology consult for HD Continue empiric IV antibiotics Pending blood cultures Heparin for DVT prophylaxis Protonix GI prophylaxis ADA diet Full code Discussed with RN and SW Disposition inpatient management as above Surrogate decision maker is History of Present Illness History of Present Illness 40-year-old male with past medical history of ESRD TTS, IV drug abuse, noncompliance, and multiple times at [facility] for partially occluded temporary dialysis catheters and infections. Apparently, he was lost to follow-up at [facility] but he did go to [place] and had an AV graft placed and has been used for approximately 4 weeks. Of note when patient was at [place] his hemoglobin was 6.9 and he needed transfusion. The graft was also evaluated and ultrasound that showed no focal stenosis in the fistula however there was fluid adjacent to the graft itself that was consistent with an abscess. Patient only complains of pain and swelling around her his upper extremity. Denies any fevers, chest pain, shortness of breath, abdominal pain, dysuria, diarrhea or bloody stools. Patient was transferred over here to [place] for vascular surgery support and evaluation. 05/10/2021 No acute events overnight. Afebrile. Labs are stable. Patient only complains of throbbing right arm pain. Patient's chart, labs, images were reviewed and discussed with RN 05/11; No overnight events afebrile. Labs stable. Still complaining of throbbing right arm pain. K6.2 today. He is more swollen he has been eating and liberalized his fluid intake over the last couple days. Discussed with microbiology lab [facility] is Enterococcus positive blood cultures. Sodium low potassium high. Feeling very bloated notes he has been eating and drinking a lot more since he is in recovery from methamphetamine abuse. Enterococcus cultures reviewed sensitive to ampicillin. Discussed with ID. Will need to delay tunneling of dialysis catheter at least 48 hours to wait for repeat blood cultures negative. Vitals/I&O Vitals/I&O: Vital Signs Date Time Temp Pulse Resp B/P (MAP) Pulse Ox O2 Delivery O2 Flow Rate FiO2 05/12/21 09:49 Room Air 05/12/21 07:00 97.9 93 18 148/86 (106) 98 97.9 I & O 05/11/21 05/11/21 05/12/21 15:00 23:00 07:00 Output Total 0 ml 0 ml Balance 0 ml 0 ml Physical Exam Physical Exam: GENERAL: Alert, oriented x 3, well-nourished, well-developed male, lying in bed comfortably, in no acute distress, HEENT: Normocephalic, atraumatic. Anicteric. No thrush. Oral mucosa moist. NECK: Supple, no JVD. Right IJ temporary dialysis catheter in place. LUNGS: Clear bilaterally. No wheezing. HEART: S1, S2. No gallops or murmurs. ABDOMEN: Soft, nontender, nondistended. Bowel sounds present. EXTREMITIES: Right upper extremity swelling present. There is an abrasion present lateral and distal aspect of the right AV shunt area with some drainage. No surrounding redness, underlying fluctuance or drainage noted. Previous scar from recent graft is well healed. No drainage. There is mild tenderness present. Right upper extremity swelling extends to the fingers. No cyanosis or clubbing. CENTRAL NERVOUS SYSTEM: Alert, oriented x 3, grossly nonfocal. PSYCHIATRIC: Calm and cooperative. DERMATOLOGIC: Warm, dry, no generalized rash except for above. General: Alert, Oriented X3, Cooperative, No acute distress Heart: Regular rate Abdomen: Normal bowel sounds Extremities: No clubbing, Other (Tenderness in the right arm near the AV graft site. Increased swelling at the right upper extremity.) Skin: No breakdown Comment Review of Relevant I have reviewed the following items guerda (where applicable) has been applied. Medications: Current Medications Medications (Trade) Dose Ordered Sig/Gemma Route PRN Reason Start Time Stop Time Status Last Admin Dose Admin Fentanyl Citrate (Fentanyl 2ml Vial) 25 mcg PRN Q3HRS PRN IVP SEVERE PAIN 7-10 05/12/21 09:45 05/12/21 09:49 Justifications for Admission Other Justification SERGIO GRAF MD May 12, 2021 14:11
[2021-05-12 15:00] VITALS: BP 146/71
[2021-05-12] MEDS: fentaNYL PF VIAL 100 MCG/2 ML VIAL IVP PRN ×2 (15:50→20:36)
[2021-05-12] MEDS: cloNIDine HCL 0.1 MG TABLET PO SCH (15:53)
[2021-05-12] MEDS: FOLIC/VIT B COMP W-C (RENAL) TABLET. PO SCH (15:53)
[2021-05-12] MEDS: CETIRIZINE HCL 10 MG TABLET. PO SCH (15:53)
[2021-05-12] MEDS: LACTOBACILLUS RHAMNOSUS GG 1 CAPSULE. PO SCH ×2 (15:53→20:37)
[2021-05-12 19:00] VITALS: BP 97/54
[2021-05-12] MEDS: diphenhydrAMINE HCL 25 MG CAPSULE PO PRN (20:36)
[2021-05-12] MEDS: MEROPENEM 500 MG in IV NORMAL SALINE 50ML 50 ML IV SCH (20:38)
[2021-05-12 23:00] VITALS: BP 123/66
[2021-05-13] MEDS: fentaNYL PF VIAL 100 MCG/2 ML VIAL IVP PRN ×6 (02:42→19:58)
[2021-05-13 03:00] VITALS: BP 149/87
[2021-05-13 07:00] VITALS: BP 132/67
--- NOTE | 2021-05-13 08:23 | PDOC ---
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 for partially occluded temporary dialysis catheters and infections. Apparently, he was lost to follow-up at [facility] but he did go to [place] and had an AV graft placed and has been used for approximately 4 weeks prior to admission. He did not up until 2.5 weeks prior to admission he was using IV methamphetamine injecting in his left arm.. Of note when patient was at [place] his hemoglobin was 6.9 and he needed transfusion. The graft was also evaluated and ultrasound that showed no focal stenosis in the fistula however there was fluid adjacent to the graft itself that was consistent with an abscess. Patient only complains of pain and swelling around her his upper extremity. Denies any fevers, chest pain, shortness of breath, abdominal pain, dysuria, diarrhea or bloody stools. Patient was transferred over here to [place] for vascular surgery support and evaluation. 05/10/2021 No acute events overnight. Afebrile. Labs are stable. Patient only complains of throbbing right arm pain. Patient's chart, labs, images were reviewed and discussed with RN 05/11; No overnight events afebrile. Labs stable. Still complaining of throbbing right arm pain. K6.2 today. He is more swollen he has been eating and liberalized his fluid intake over the last couple days. Discussed with microbiology lab [facility] is Enterococcus positive blood cultures. 05/12: Sodium low potassium high. Feeling very bloated notes he has been eating and drinking a lot more since he is in recovery from methamphetamine abuse. Enterococcus cultures reviewed sensitive to ampicillin. Discussed with ID. Will need to delay tunneling of dialysis catheter at least 48 hours to wait for repeat blood cultures negative. Hb 7.7. No complaints today. Afebrile. Plan for n.p.o. until dialysis catheter tomorrow. Repeat blood cultures with no growth to date. Vitals/I&O Vitals/I&O: Vital Signs Date Time Temp Pulse Resp B/P (MAP) Pulse Ox O2 Delivery O2 Flow Rate FiO2 05/13/21 06:14 97 Room Air 05/13/21 03:00 97.8 99 16 149/87 (107) 97.8 I & O 05/12/21 05/12/21 05/13/21 15:00 23:00 07:00 Intake Total 240 ml 200 ml 640 ml Balance 240 ml 200 ml 640 ml Physical Exam Physical Exam: GENERAL: Alert, oriented x 3, well-nourished, well-developed male, lying in bed comfortably, in no acute distress, HEENT: Normocephalic, atraumatic. Anicteric. No thrush. Oral mucosa moist. NECK: Supple, no JVD. Right IJ temporary dialysis catheter in place. LUNGS: Clear bilaterally. No wheezing. HEART: S1, S2. No gallops or murmurs. ABDOMEN: Soft, nontender, nondistended. Bowel sounds present. EXTREMITIES: Right upper extremity swelling present. There is an abrasion present lateral and distal aspect of the right AV shunt area with some drainage. No surrounding redness, underlying fluctuance or drainage noted. Previous scar from recent graft is well healed. No drainage. There is mild tenderness present. Right upper extremity swelling extends to the fingers. No cyanosis or clubbing. CENTRAL NERVOUS SYSTEM: Alert, oriented x 3, grossly nonfocal. PSYCHIATRIC: Calm and cooperative. DERMATOLOGIC: Warm, dry, no generalized rash except for above. General: Alert, Oriented X3, Cooperative, No acute distress Heart: Regular rate Abdomen: Normal bowel sounds Extremities: No clubbing, Other (Tenderness in the right arm near the AV graft site. Increased swelling at the right upper extremity.) Skin: No breakdown Comment Review of Relevant I have reviewed the following items guerda (where applicable) has been applied. Medications: Current Medications Medications (Trade) Dose Ordered Sig/Gemma Route PRN Reason Start Time Stop Time Status Last Admin Dose Admin Fentanyl Citrate (Fentanyl 2ml Vial) 25 mcg PRN Q3HRS PRN IVP SEVERE PAIN 7-10 05/12/21 09:45 05/12/21 14:11 DC 05/12/21 09:49 Fentanyl Citrate (Fentanyl 2ml Vial) 75 mcg PRN Q3HRS PRN IVP SEVERE PAIN 7-10 05/12/21 14:30 05/13/21 06:14 Justifications for Admission Other Justification SERGIO GRAF MD May 13, 2021 08:23
[2021-05-13] MEDS: CARVEDILOL 12.5 MG TABLET. PO SCH ×2 (09:38→17:06)
[2021-05-13] MEDS: GABAPENTIN 100 MG CAPSULE. PO SCH ×2 (09:38→19:58)
[2021-05-13] MEDS: cloNIDine HCL 0.1 MG TABLET PO SCH (09:38)
[2021-05-13] MEDS: LACTOBACILLUS RHAMNOSUS GG 1 CAPSULE. PO SCH ×2 (09:39→19:58)
[2021-05-13] MEDS: FOLIC/VIT B COMP W-C (RENAL) TABLET. PO SCH (09:39)
[2021-05-13] MEDS: PANTOPRAZOLE 40 MG TABLET.DR. PO SCH (09:39)
[2021-05-13] MEDS: CETIRIZINE HCL 10 MG TABLET. PO SCH (09:39)
[2021-05-13] MEDS: CALCIUM ACETATE 667 MG CAPSULE PO SCH ×3 (09:39→17:06)
--- NOTE | 2021-05-13 09:47 | PDOC ---
Provider Note Date of Service: DATE: 05/13/21 TIME: 09:42 Provider Note Provider Note S: Reports improved pain in right arm this AM. Less drainage from the lateral sinus tract on right arm. I do note his initial blood cultures grew enterococcus. Repeat blood cultures here are pending. Fluid sample culture pending but gram stain showed no organisms O: SKIN:Minimal erythema surrounding previous puncture site on graft. The upper arm remains edematous but somewhat improved. MSK: normal range of motion of right arm at shoulder and elbow. EXT: intact pulses to bilateral upper and lower extremities distally. NEURO: sensation intact to hand A: 1. Fluid collection around right hemodialysis graft, likely hematoma related to access but concern remains for graft infection 2. Enterococcus bacteremia P: Awaiting repeat blood cultures and cultures of perigraft fluid. If repeat blood cultures persistently positive would then have to discuss removing graft understanding that this would leave him with limited options (either chest wall graft or LE graft). Could consider alternative conduit (ie humacyte graft if can get approval). Justicifation of Admission Dx: Justifications for Admission: Justification of Admission Dx: Yes Sepsis: Bacteremia CHINYERE VARELA MD May 13, 2021 09:47
--- NOTE | 2021-05-13 10:33 | PDOC ---
Infectious Disease Note Subjective: Subjective Patient continues to have pain and swelling of the right upper extremity Drainage from one lesion of right upper extremity is slowly decreasing Denies fever, nausea, vomiting, shortness of breath, diarrhea, abdominal pain, Otherwise as above Vital Signs: Vital Signs Vital Signs Date Time Temp Pulse Resp B/P (MAP) Pulse Ox O2 Delivery O2 Flow Rate FiO2 05/13/21 09:41 Room Air 05/13/21 09:39 90 132/67 05/13/21 07:00 97.9 16 98 97.9 Physical Exam: PHYSICAL EXAM GENERAL: Alert, oriented x 3, well-nourished, well-developed male, lying in bed comfortably, in no acute distress, HEENT: Normocephalic, atraumatic. Anicteric. No thrush. Oral mucosa moist. NECK: Supple, no JVD. Right IJ temporary dialysis catheter in place. LUNGS: Clear bilaterally. No wheezing. HEART: S1, S2. No gallops or murmurs. ABDOMEN: Soft, nontender, nondistended. Bowel sounds present. EXTREMITIES: Right upper extremity swelling present. There is an abrasion present lateral and distal aspect of the right AV shunt area with some drainage. No surrounding redness, underlying fluctuance or drainage noted. Previous scar from recent graft is well healed. No drainage. There is mild tenderness present. Right upper extremity swelling extends to the fingers. No cyanosis or clubbing. CENTRAL NERVOUS SYSTEM: Alert, oriented x 3, grossly nonfocal. PSYCHIATRIC: Calm and cooperative. DERMATOLOGIC: Warm, dry, no generalized rash except for above. Medications: Inpatient Meds: Medications reviewed. Objective: Assessment: Patient transferred from [place] with right upper extremity swelling and pain Ultrasound revealed right perigraft fluid collection Enterococcus ampicillin sensitive, daptomycin sensitive, and staph hominis bacteremia May 05, 2021 from [facility] 1. Possible right upper extremity infection with tenderness and swelling around the right arm AV shunt. Ultrasound at [facility] showed a fluid collection in the perigraft area. Vascular surgery has evaluated the patient. 2. Superficial abrasion over the lateral and distal aspect of the right arm AV shunt. Cult of fluid done 3. End-stage renal disease, on hemodialysis, currently through a right temporary HDC catheter. Hyponatremia and hyperkalemia 4. Hypertension. 5. Anemia of chronic disease. 6. Secondary hyperparathyroidism. 7. History of intravenous drug user. 8. History of ALLERGIES TO PENICILLIN, SULFA, VANCOMYCIN. 9. History of noncompliance Plan: Plan of Care 1. Continue meropenem 2. Follow up labs. Follow-up repeat blood cultures here and swab cultures 3. Blood culture results from [facility] 4. Vascular Surgery is following the patient. 5. Elevate right upper extremity. 6. Hold Permanent HDC placement until repeat bc are neg atleast for 48hrs 7. Continue supportive care. Discussed with nursing staff IVELISSE ORTEGA MD May 13, 2021 10:33
--- NOTE | 2021-05-13 10:41 | PDOC ---
Renal-Progress Notes Subjective Notes Notes NO NEW COMPLAINTS History of Present Illness Hx of present illness ACCESS ARM STILL HURTS AND IS SWOLLEN Vitals Vitals Vital Signs Date Time Temp Pulse Resp B/P (MAP) Pulse Ox O2 Delivery O2 Flow Rate FiO2 05/13/21 09:41 Room Air 05/13/21 09:39 90 132/67 05/13/21 07:00 97.9 16 98 97.9 Weight Weight [ ] I.O. Intake and Output Intake and Output 05/13/21 07:00 Intake Total 1080 ml Balance 1080 ml Intake Oral 1080 ml Micro Micro Microbiology 05/12/21 Blood Culture - Preliminary, Resulted NO GROWTH AFTER 1 DAY 05/11/21 Gram Stain - Final, Resulted 05/11/21 Aerobic and Anaerobic Culture - Preliminary, Resulted Review of Systems Constitutional: yes: weakness, alert, oriented Ears/Nose/Throat: Yes: no symptom reported Eyes: Yes: no symptom reported Pulmonary: Yes no symptom reported Cardiovascular: Yes no symptom reported Gastrointestional: Yes: constipation Genitourinary: Yes: no symptom reported Musculoskeletal: Yes: arm pain, muscle stiffness Skin: Yes no symptom reported Psychiatric/Neurological: Yes: no symptom reported Endocrine: Yes: no symptom reported Physical Exam General Appearance: no apparent distress Skin: warm Respiratory: bilateral CTA Heart: S1S2 Abdomen: soft, bowel sounds present Genitourinary: bladder flat Extremities: pulses present, other (RIGHT ARM AVG WITH TENDERNESS, ERYTHEMA, THRILL AND BRUIT PRESENT) Neurology: alert, oriented Assessment Assessment IMP HYPERKALEMIA ESRD-TTS MPGN ANEMIA HTN GLUCOSE INTOLERANCE POSS LINE SEPSIS RIGHT ARM BB AVG SITE INFECTION IVDA ENTEROCOCCAL BACTEREMIA PLAN ANTIBIOTICS ARANESP HD TOMORROW VASCULAR SURGERY EVALUATION ENC ABSTINENCE FROM IVDA HOLD TUNNELED HD LINE TILL BACTEREMIA CLEARS WILL FOLLOW D/W ID ITZEL ARAYA MD May 13, 2021 10:41
[2021-05-13 11:00] VITALS: BP 130/68
[2021-05-13 15:00] VITALS: BP 153/89
[2021-05-13] MEDS: oxyCODONE/APAP 10/325 1 TAB TABLET PO PRN (17:06)
[2021-05-13 19:00] VITALS: BP 156/84
[2021-05-13] MEDS: MEROPENEM 500 MG in IV NORMAL SALINE 50ML 50 ML IV SCH (19:58)
[2021-05-13] MEDS: diphenhydrAMINE HCL 25 MG CAPSULE PO PRN (20:06)
[2021-05-14] VITALS (9 sets, daily range): BP systolic 108–171; BP diastolic 60–96
[2021-05-14] MEDS: fentaNYL PF VIAL 100 MCG/2 ML VIAL IVP PRN ×7 (00:36→23:19)
[2021-05-14] MEDS: PANTOPRAZOLE 40 MG TABLET.DR. PO SCH (08:07)
[2021-05-14] MEDS: GABAPENTIN 100 MG CAPSULE. PO SCH ×2 (08:08→20:11)
[2021-05-14] MEDS: LACTOBACILLUS RHAMNOSUS GG 1 CAPSULE. PO SCH ×2 (08:08→20:10)
[2021-05-14] MEDS: FOLIC/VIT B COMP W-C (RENAL) TABLET. PO SCH (08:08)
[2021-05-14] MEDS: CALCIUM ACETATE 667 MG CAPSULE PO SCH ×3 (08:08→17:27)
[2021-05-14] MEDS: CARVEDILOL 12.5 MG TABLET. PO SCH ×2 (08:08→17:27)
--- NOTE | 2021-05-14 08:08 | PDOC ---
Provider Note Date of Service: DATE: 05/14/21 TIME: 08:07 Provider Note Provider Note S; Continues to endorse pain in arm. Minimal to no drainage still from sinus. O: palpable pulses, in right arm. No appreciable fluctuance around AV graft A: Perigraft fluid collection Enterococcus bacteremia P: Awaiting results from fluid and repeat blood cultures. Thus far no growth to date. Agree with continued attempt at graft salvage if possible. Justicifation of Admission Dx: Justifications for Admission: Justification of Admission Dx: Yes Sepsis: Bacteremia CHINYERE VARELA MD May 14, 2021 08:08
[2021-05-14] MEDS: cloNIDine HCL 0.1 MG TABLET PO SCH (08:09)
[2021-05-14] MEDS: CETIRIZINE HCL 10 MG TABLET. PO SCH (08:09)
--- NOTE | 2021-05-14 08:15 | PDOC ---
Infectious Disease Note Subjective: Subjective Patient is undergoing dialysis Sleepy but arousable Awaiting permanent HDC catheter placement later today Vital Signs: Vital Signs Vital Signs Date Time Temp Pulse Resp B/P (MAP) Pulse Ox O2 Delivery O2 Flow Rate FiO2 05/14/21 08:09 86 166/95 05/14/21 08:06 96 Room Air 05/14/21 03:00 98.8 16 98.8 Physical Exam: PHYSICAL EXAM GENERAL: Alert, oriented x 3, well-nourished, well-developed male, lying in bed comfortably, in no acute distress, HEENT: Normocephalic, atraumatic. Anicteric. No thrush. Oral mucosa moist. NECK: Supple, no JVD. Right IJ temporary dialysis catheter in place. LUNGS: Clear bilaterally. No wheezing. HEART: S1, S2. No gallops or murmurs. ABDOMEN: Soft, nontender, nondistended. Bowel sounds present. EXTREMITIES: Right upper extremity swelling present. There is an abrasion present lateral and distal aspect of the right AV shunt area with some drainage. No surrounding redness, underlying fluctuance or drainage noted. Previous scar from recent graft is well healed. No drainage. There is mild tenderness present. Right upper extremity swelling extends to the fingers. No cyanosis or clubbing. CENTRAL NERVOUS SYSTEM: Alert, oriented x 3, grossly nonfocal. PSYCHIATRIC: Calm and cooperative. DERMATOLOGIC: Warm, dry, no generalized rash except for above. Medications: Inpatient Meds: Medications reviewed. Objective: Assessment: Patient transferred from [place] with right upper extremity swelling and pain Ultrasound revealed right perigraft fluid collection Enterococcus ampicillin sensitive, daptomycin sensitive, and staph hominis bacteremia May 05, 2021 from [facility] Repeat BC neg here so far 1. Possible right upper extremity infection with tenderness and swelling around the right arm AV shunt. Ultrasound at [facility] showed a fluid collection in the perigraft area. Vascular surgery has evaluated the patient. 2. Superficial abrasion over the lateral and distal aspect of the right arm AV shunt. Cult of fluid done 3. End-stage renal disease, on hemodialysis, currently through a right temporary HDC catheter. Hyponatremia and hyperkalemia 4. Hypertension. 5. Anemia of chronic disease. 6. Secondary hyperparathyroidism. 7. History of intravenous drug user. 8. History of ALLERGIES TO PENICILLIN, SULFA, VANCOMYCIN. 9. History of noncompliance Plan: Plan of Care 1. Continue meropenem , 2. Follow up labs. Follow-up repeat blood cultures here and swab cultures neg so far 3. Blood culture results from [facility] [place] 4. Vascular Surgery is following the patient. 5. Elevate right upper extremity. 6. Awaiting permanent HDC placement today 7. Continue supportive care. Discussed with nursing staff Discussed with IR and IVELISSE Gregory MD May 14, 2021 08:15
[2021-05-14] MEDS ORDERED: IV NORMAL SALINE 1000ML BAG 1,000 ML IV PRN ×2 (08:45)
[2021-05-14] MEDS ORDERED: DIALYSIS PATIENT. MC PRN ×2 (08:45)
[2021-05-14 09:20] LABS: BASO # 0.1 x10^3/uL (0.0-0.2); BASO % 1 % (0-3); EOS # 0.1 x10^3/uL (0.0-0.7); EOS % 2 % (0-3); LYMPH # 0.7 x10^3/uL (1.0-4.8); LYMPH % 12 % (24-48); MEAN CORPUSCULAR HEMOGLOBIN 31 pg (25-35); MEAN CORPUSCULAR HGB CONC 33 g/dL (31-37); MEAN CORPUSCULAR VOLUME 92 fL (79-100); MONO # 0.2 x10^3/uL (0.0-1.1); MONO % 3 % (0-9); NEUT # 5.1 x10^3/uL (1.8-7.7); NEUT % 83 % (31-73); PLATELET COUNT 137 x10^3/uL (140-400); RED BLOOD COUNT 2.27 x10^6/uL (4.30-5.70); RED CELL DISTRIBUTION WIDTH 19.2 % (11.5-14.5); WHITE BLOOD COUNT 6.2 x10^3/uL (4.0-11.0)
[2021-05-14 09:32] LABS: HEMATOCRIT 20.8 % (39.0-53.0); HEMOGLOBIN 6.9 g/dL (13.0-17.5)
[2021-05-14 09:44] LABS: ALBUMIN 2.6 g/dL (3.4-5.0); ALBUMIN/GLOBULIN RATIO 0.7 (1.0-1.7); CALCIUM 8.5 mg/dL (8.5-10.1); CREATININE 6.6 mg/dL (0.7-1.3); GFR 9.4; TOTAL BILIRUBIN 0.4 mg/dL (0.2-1.0); TOTAL PROTEIN 6.2 g/dL (6.4-8.2)
[2021-05-14 09:50] LABS: POTASSIUM 7.2 mmol/L (3.5-5.1)
--- NOTE | 2021-05-14 10:23 | PDOC ---
Renal-Progress Notes Subjective Notes Notes FEELS SWOLLEN History of Present Illness Hx of present illness STABLE Vitals Vitals Vital Signs Date Time Temp Pulse Resp B/P (MAP) Pulse Ox O2 Delivery O2 Flow Rate FiO2 05/14/21 08:09 86 166/95 05/14/21 08:06 96 Room Air 05/14/21 07:00 98.7 18 98.7 Weight Weight [ ] I.O. Intake and Output Intake and Output 05/14/21 07:00 Intake Total 1990 ml Balance 1990 ml Intake Oral 1990 ml # Voids 1 Labs Labs Laboratory Tests Test 05/14/21 08:45 White Blood Count 6.2 x10^3/uL (4.0-11.0) Red Blood Count 2.27 x10^6/uL (4.30-5.70) Hemoglobin 6.9 g/dL (13.0-17.5) Hematocrit 20.8 % (39.0-53.0) Mean Corpuscular Volume 92 fL (79-100) Mean Corpuscular Hemoglobin 31 pg (25-35) Mean Corpuscular Hemoglobin Concent 33 g/dL (31-37) Red Cell Distribution Width 19.2 % (11.5-14.5) Platelet Count 137 x10^3/uL (140-400) Neutrophils (%) (Auto) 83 % (31-73) Lymphocytes (%) (Auto) 12 % (24-48) Monocytes (%) (Auto) 3 % (0-9) Eosinophils (%) (Auto) 2 % (0-3) Basophils (%) (Auto) 1 % (0-3) Neutrophils # (Auto) 5.1 x10^3/uL (1.8-7.7) Lymphocytes # (Auto) 0.7 x10^3/uL (1.0-4.8) Monocytes # (Auto) 0.2 x10^3/uL (0.0-1.1) Eosinophils # (Auto) 0.1 x10^3/uL (0.0-0.7) Basophils # (Auto) 0.1 x10^3/uL (0.0-0.2) Sodium Level 132 mmol/L (136-145) Potassium Level 7.2 mmol/L (3.5-5.1) Chloride Level 96 mmol/L (98-107) Carbon Dioxide Level 25 mmol/L (21-32) Anion Gap 11 (6-14) Blood Urea Nitrogen 58 mg/dL (8-26) Creatinine 6.6 mg/dL (0.7-1.3) Estimated GFR (Cockcroft-Gault) 9.4 BUN/Creatinine Ratio 9 (6-20) Glucose Level 137 mg/dL (70-99) Calcium Level 8.5 mg/dL (8.5-10.1) Total Bilirubin 0.4 mg/dL (0.2-1.0) Aspartate Amino Transf (AST/SGOT) 19 U/L (15-37) Alanine Aminotransferase (ALT/SGPT) 51 U/L (16-63) Alkaline Phosphatase 84 U/L (46-116) Total Protein 6.2 g/dL (6.4-8.2) Albumin 2.6 g/dL (3.4-5.0) Albumin/Globulin Ratio 0.7 (1.0-1.7) Micro Micro Microbiology 05/12/21 Blood Culture - Preliminary, Resulted NO GROWTH AFTER 1 DAY 05/11/21 Gram Stain - Final, Resulted 05/11/21 Aerobic and Anaerobic Culture - Preliminary, Resulted Review of Systems Constitutional: yes: weakness, alert, oriented Ears/Nose/Throat: Yes: no symptom reported Eyes: Yes: no symptom reported Pulmonary: Yes no symptom reported Cardiovascular: Yes no symptom reported Gastrointestional: Yes: constipation Genitourinary: Yes: no symptom reported Musculoskeletal: Yes: arm pain, muscle stiffness Skin: Yes no symptom reported Psychiatric/Neurological: Yes: no symptom reported Endocrine: Yes: no symptom reported Physical Exam General Appearance: no apparent distress Skin: warm Respiratory: bilateral CTA Heart: S1S2 Abdomen: soft, bowel sounds present Genitourinary: bladder flat Extremities: pulses present, other (RIGHT ARM AVG WITH TENDERNESS, ERYTHEMA, THRILL AND BRUIT PRESENT) Neurology: alert, oriented Assessment Assessment IMP HYPERKALEMIA ESRD-TTS MPGN ANEMIA HTN GLUCOSE INTOLERANCE POSS LINE SEPSIS RIGHT ARM BB AVG SITE INFECTION IVDA ENTEROCOCCAL BACTEREMIA PLAN ANTIBIOTICS ARANESP HD TODAY UF TOLERATED VASCULAR SURGERY EVALUATION ENC ABSTINENCE FROM IVDA TUNNELED HD LINE TODAY EXTRA HD TOMORROW-NEEDS EXTRA UF TO GET TO TW WILL FOLLOW D/W ITZEL HANNAH MD May 14, 2021 10:23
--- NOTE | 2021-05-14 10:47 | NUR ---
SW following. Discussed with RN, pt from home, room air, renal diet. Dialysis today. Awaiting cultures before new tunneled cath is put in. SW will continue to follow.
--- NOTE | 2021-05-14 10:56 | PDOC ---
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 Enterococcus bacteremia - sensitivities from microbiology lab faxed over Pending TTE Vascular surgery consult Consider ID consult Nephrology consult for HD Continue empiric IV antibiotics Pending blood cultures Heparin for DVT prophylaxis Protonix GI prophylaxis ADA diet Full code Discussed with RN and SW Disposition inpatient management as above Surrogate decision maker is History of Present Illness History of Present Illness 40-year-old male with past medical history of ESRD TTS, IV drug abuse, noncompliance, and multiple times at [facility] for partially occluded temporary dialysis catheters and infections. Apparently, he was lost to follow-up at [facility] but he did go to [facility] and had an AV graft placed and has been used for approximately 4 weeks prior to admission. He did not up until 2.5 weeks prior to admission he was using IV methamphetamine injecting in his left arm.. Of note when patient was at [place] his hemoglobin was 6.9 and he needed transfusion. The graft was also evaluated and ultrasound that showed no focal stenosis in the fistula however there was fluid adjacent to the graft itself that was consistent with an abscess. Patient only complains of pain and swelling around her his upper extremity. Denies any fevers, chest pain, shortness of breath, abdominal pain, dysuria, diarrhea or bloody stools. Patient was transferred over here to [place] for vascular surgery support and evaluation. 05/10/2021 No acute events overnight. Afebrile. Labs are stable. Patient only complains of throbbing right arm pain. Patient's chart, labs, images were reviewed and discussed with RN 05/11; No overnight events afebrile. Labs stable. Still complaining of throbbing right arm pain. K6.2 today. He is more swollen he has been eating and liberalized his fluid intake over the last couple days. Discussed with microbiology lab [facility] is Enterococcus positive blood cultures. 05/12: Sodium low potassium high. Feeling very bloated notes he has been eating and drinking a lot more since he is in recovery from methamphetamine abuse. Enterococcus cultures reviewed sensitive to ampicillin. Discussed with ID. Will need to delay tunneling of dialysis catheter at least 48 hours to wait for repeat blood cultures negative. 05/13: Hb 7.7. No complaints today. Afebrile. Plan for n.p.o. until dialysis catheter tomorrow. Repeat blood cultures with no growth to date. Hb 6.9, K7.2. N.p.o. for tunneled dialysis catheter later today he was able to eat breakfast somehow. Seen on dialysis, a little drowsy. Low k bath and blood 1u PRBC ordered. Vitals/I&O Vitals/I&O: Vital Signs Date Time Temp Pulse Resp B/P (MAP) Pulse Ox O2 Delivery O2 Flow Rate FiO2 05/14/21 10:41 96 Room Air 05/14/21 08:09 86 166/95 05/14/21 07:00 98.7 18 98.7 I & O 05/13/21 05/13/21 05/14/21 15:00 23:00 07:00 Intake Total 650 ml 840 ml 500 ml Balance 650 ml 840 ml 500 ml Physical Exam Physical Exam: GENERAL: Alert, oriented x 3, well-nourished, well-developed male, lying in bed comfortably, in no acute distress, HEENT: Normocephalic, atraumatic. Anicteric. No thrush. Oral mucosa moist. NECK: Supple, no JVD. Right IJ temporary dialysis catheter in place. LUNGS: Clear bilaterally. No wheezing. HEART: S1, S2. No gallops or murmurs. ABDOMEN: Soft, nontender, nondistended. Bowel sounds present. EXTREMITIES: Right upper extremity swelling present. There is an abrasion present lateral and distal aspect of the right AV shunt area with some drainage. No surrounding redness, underlying fluctuance or drainage noted. Previous scar from recent graft is well healed. No drainage. There is mild tenderness present. Right upper extremity swelling extends to the fingers. No cyanosis or clubbing. CENTRAL NERVOUS SYSTEM: Alert, oriented x 3, grossly nonfocal. PSYCHIATRIC: Calm and cooperative. DERMATOLOGIC: Warm, dry, no generalized rash except for above. General: Alert, Oriented X3, Cooperative, No acute distress Heart: Regular rate Abdomen: Normal bowel sounds Extremities: No clubbing, Other (Tenderness in the right arm near the AV graft site. Increased swelling at the right upper extremity.) Skin: No breakdown Labs Labs: Laboratory Tests Test 05/14/21 08:45 White Blood Count 6.2 x10^3/uL (4.0-11.0) Red Blood Count 2.27 x10^6/uL (4.30-5.70) Hemoglobin 6.9 g/dL (13.0-17.5) Hematocrit 20.8 % (39.0-53.0) Mean Corpuscular Volume 92 fL (79-100) Mean Corpuscular Hemoglobin 31 pg (25-35) Mean Corpuscular Hemoglobin Concent 33 g/dL (31-37) Red Cell Distribution Width 19.2 % (11.5-14.5) Platelet Count 137 x10^3/uL (140-400) Neutrophils (%) (Auto) 83 % (31-73) Lymphocytes (%) (Auto) 12 % (24-48) Monocytes (%) (Auto) 3 % (0-9) Eosinophils (%) (Auto) 2 % (0-3) Basophils (%) (Auto) 1 % (0-3) Neutrophils # (Auto) 5.1 x10^3/uL (1.8-7.7) Lymphocytes # (Auto) 0.7 x10^3/uL (1.0-4.8) Monocytes # (Auto) 0.2 x10^3/uL (0.0-1.1) Eosinophils # (Auto) 0.1 x10^3/uL (0.0-0.7) Basophils # (Auto) 0.1 x10^3/uL (0.0-0.2) Sodium Level 132 mmol/L (136-145) Potassium Level 7.2 mmol/L (3.5-5.1) Chloride Level 96 mmol/L (98-107) Carbon Dioxide Level 25 mmol/L (21-32) Anion Gap 11 (6-14) Blood Urea Nitrogen 58 mg/dL (8-26) Creatinine 6.6 mg/dL (0.7-1.3) Estimated GFR (Cockcroft-Gault) 9.4 BUN/Creatinine Ratio 9 (6-20) Glucose Level 137 mg/dL (70-99) Calcium Level 8.5 mg/dL (8.5-10.1) Total Bilirubin 0.4 mg/dL (0.2-1.0) Aspartate Amino Transf (AST/SGOT) 19 U/L (15-37) Alanine Aminotransferase (ALT/SGPT) 51 U/L (16-63) Alkaline Phosphatase 84 U/L (46-116) Total Protein 6.2 g/dL (6.4-8.2) Albumin 2.6 g/dL (3.4-5.0) Albumin/Globulin Ratio 0.7 (1.0-1.7) Comment Review of Relevant I have reviewed the following items guerda (where applicable) has been applied. Justifications for Admission Other Justification SERGIO GRAF MD May 14, 2021 10:56
[2021-05-14] MEDS ORDERED: fentaNYL PF VIAL 100 MCG/2 ML VIAL ONE (12:51)
[2021-05-14] MEDS ORDERED: MIDAZOLAM HCL/PF 5 MG/5 ML VIAL. ONE (12:51)
[2021-05-14] MEDS ORDERED: LIDOCAINE 1%/EPI 1:100,000 20 ML VIAL. ONE (12:51)
[2021-05-14] MEDS ORDERED: fentaNYL PF VIAL 100 MCG/2 ML VIAL IV ONE (13:00)
[2021-05-14] MEDS ORDERED: MIDAZOLAM HCL/PF 5 MG/5 ML VIAL. IV ONE (13:00)
[2021-05-14] MEDS ORDERED: LIDOCAINE 1%/EPI 1:100,000 20 ML VIAL. INJ ONE (13:00)
--- NOTE | 2021-05-14 13:46 | PDOC ---
MODERATE SEDATION ASSESSMENT RISKS/ALTERNATIVES Risks/Alternatives Risks and alternatives of this type of sedation and procedure discussed with: RISK/ALTERNATIVES: Patient H & P ON CHART H & P H & P on chart and reviewed for co-morbid conditions and appropriate labs. H&P ON CHART: Yes STATUS PREG STATUS ASSESSED: Yes MEDS/ALLERGIES REVIEWED Meds/Allergies Reviewed Medications and Allergies including time and route of recently administered narcotics and sedatives. MEDS/ALLERGIES REVIEWED: Yes ASA RATING ASA RATING: II AIRWAY ASSESSMENT Airway Assessment Airway patency, oral function limitations, presence of caps, crowns, dentures, partials, and ability to extend neck assessed. AIRWAY ASSESSMENT: Yes MALLAMPATI SCORE MALLAMPATI SCORE: II PRE-SEDATION ASSESSMENT PRE-SEDATION ASSESSMENT: Yes LEXA RIVER MD May 14, 2021 13:46
--- NOTE | 2021-05-14 14:24 | RAD ---
Conversion of right internal jugular temporary dialysis catheter to tunneled catheter over a guidewir e today INDICATION: Longer term dialysis access needed COMPARISON STUDY: None Discussion: Consent: The procedure was explained in its entirety to the patient or the patients designated repres entative by a member of the treatment team, including a discussion of the risks, benefits and commonl y accepted alternatives to the procedure, as well as the expected consequences of no therapy whatsoev er. Discussion of the risks included, but was not limited to, those that are most frequent and thos e that are rare but possibly severe or life-threatening, as well as the possibility of unforeseen com plications. The patient was prepped and draped using maximum sterile technique, including the use of: Current fabrizio deline approved cutaneous antisepsis, a large sterile sheet to establish a sterile field. Additionall y the cotton weigher operator wore a hat, mask, sterile gloves, a sterile gown during the procedure as well as pract iced acceptable hand hygiene prior to placing the line. The pre-existing right internal jugular tempo rary line was prepped into the field. A wire was advanced through this line into the IVC. 1% lidocain e was administered for local anesthesia. A small dermatotomy was made several centimeters under the c lavicle on the right. A 23 cm tip to cuff dialysis catheter was advanced from the dermatotomy to the access site. A peel-away sheath was advanced over the guidewire, through which the new catheter was d elivered. The catheter tip was positioned in the proximal right atrium. The catheter flushes and aspi rates normally. The catheter was secured in place. Sterile dressings were applied. No immediate compl ications were identified. Total fluoroscopy time: 0.2 minutes Dose area product 4 [place] centimeters squared Sedation: The procedure was performed under conscious sedation including continuous cardiopulmonary m onitoring via a dedicated sedation nurse. [id number] sedation time: 20 minutes IMPRESSION: Conversion of a right internal jugular temporary dialysis catheter to tunneled catheter a s described Electronically signed by: Phoenix Ferrari MD (05/14/2021 2:22 PM) [id number]
[2021-05-14] MEDS: oxyCODONE/APAP 10/325 1 TAB TABLET PO PRN (16:40)
[2021-05-14] MEDS ORDERED: fentaNYL PF VIAL 100 MCG/2 ML VIAL IVP ONE (18:15)
[2021-05-14] MEDS: MEROPENEM 500 MG in IV NORMAL SALINE 50ML 50 ML IV SCH (20:10)
[2021-05-14] MEDS: diphenhydrAMINE HCL 25 MG CAPSULE PO PRN (20:10)
[2021-05-15] MEDS: fentaNYL PF VIAL 100 MCG/2 ML VIAL IVP PRN ×7 (02:06→23:28)
[2021-05-15 03:00] VITALS: BP 152/98
[2021-05-15 06:51] VITALS: BP 182/123
[2021-05-15] MEDS: FOLIC/VIT B COMP W-C (RENAL) TABLET. PO SCH (08:02)
[2021-05-15] MEDS: cloNIDine HCL 0.1 MG TABLET PO SCH (08:02)
[2021-05-15] MEDS: oxyCODONE/APAP 10/325 1 TAB TABLET PO PRN ×2 (08:02→16:27)
[2021-05-15] MEDS: PANTOPRAZOLE 40 MG TABLET.DR. PO SCH (08:02)
[2021-05-15] MEDS: CETIRIZINE HCL 10 MG TABLET. PO SCH (08:03)
[2021-05-15] MEDS: GABAPENTIN 100 MG CAPSULE. PO SCH ×2 (08:03→20:09)
[2021-05-15] MEDS: CALCIUM ACETATE 667 MG CAPSULE PO SCH ×3 (08:03→17:53)
[2021-05-15] MEDS: LACTOBACILLUS RHAMNOSUS GG 1 CAPSULE. PO SCH ×2 (08:03→20:09)
[2021-05-15] MEDS: CARVEDILOL 12.5 MG TABLET. PO SCH ×2 (08:03→17:53)
--- NOTE | 2021-05-15 08:12 | PDOC ---
Infectious Disease Note Subjective: Subjective Patient feels better Continues to intermittently drain from the right upper extremity graft site Swelling of the right upper extremity is improving though slowly Denies fever, nausea, vomiting, shortness of breath, diarrhea, abdominal pain,gen rash Otherwise as above Vital Signs: Vital Signs Vital Signs Date Time Temp Pulse Resp B/P (MAP) Pulse Ox O2 Delivery O2 Flow Rate FiO2 05/15/21 08:03 90 182/123 05/15/21 08:02 Room Air 05/15/21 06:51 98.1 18 97 98.1 05/15/21 06:33 2.0 Physical Exam: PHYSICAL EXAM GENERAL: Alert, oriented x 3, well-nourished, well-developed male, lying in bed comfortably, in no acute distress, HEENT: Normocephalic, atraumatic. Anicteric. No thrush. Oral mucosa moist. NECK: Supple, no JVD. Right IJ temporary dialysis catheter in place. LUNGS: Clear bilaterally. No wheezing. Chest wall permanent left HDC catheter present HEART: S1, S2. No gallops or murmurs. ABDOMEN: Soft, nontender, nondistended. Bowel sounds present. EXTREMITIES: Right upper extremity swelling present. Slightly improved there is an abrasion present lateral and distal aspect of the right AV shunt area with continued drainage. No surrounding redness, underlying fluctuance or drainage noted. Previous scar from recent graft is well healed. No drainage. There is mild tenderness present. Right upper extremity swelling extends to the fingers. No cyanosis or clubbing. CENTRAL NERVOUS SYSTEM: Alert, oriented x 3, grossly nonfocal. PSYCHIATRIC: Calm and cooperative. DERMATOLOGIC: Warm, dry, no generalized rash except for above. Medications: Inpatient Meds: Medications reviewed. Labs: Lab Laboratory Tests Test 05/14/21 08:45 White Blood Count 6.2 x10^3/uL (4.0-11.0) Red Blood Count 2.27 x10^6/uL (4.30-5.70) Hemoglobin 6.9 g/dL (13.0-17.5) Hematocrit 20.8 % (39.0-53.0) Mean Corpuscular Volume 92 fL (79-100) Mean Corpuscular Hemoglobin 31 pg (25-35) Mean Corpuscular Hemoglobin Concent 33 g/dL (31-37) Red Cell Distribution Width 19.2 % (11.5-14.5) Platelet Count 137 x10^3/uL (140-400) Neutrophils (%) (Auto) 83 % (31-73) Lymphocytes (%) (Auto) 12 % (24-48) Monocytes (%) (Auto) 3 % (0-9) Eosinophils (%) (Auto) 2 % (0-3) Basophils (%) (Auto) 1 % (0-3) Neutrophils # (Auto) 5.1 x10^3/uL (1.8-7.7) Lymphocytes # (Auto) 0.7 x10^3/uL (1.0-4.8) Monocytes # (Auto) 0.2 x10^3/uL (0.0-1.1) Eosinophils # (Auto) 0.1 x10^3/uL (0.0-0.7) Basophils # (Auto) 0.1 x10^3/uL (0.0-0.2) Sodium Level 132 mmol/L (136-145) Potassium Level 7.2 mmol/L (3.5-5.1) Chloride Level 96 mmol/L (98-107) Carbon Dioxide Level 25 mmol/L (21-32) Anion Gap 11 (6-14) Blood Urea Nitrogen 58 mg/dL (8-26) Creatinine 6.6 mg/dL (0.7-1.3) Estimated GFR (Cockcroft-Gault) 9.4 BUN/Creatinine Ratio 9 (6-20) Glucose Level 137 mg/dL (70-99) Calcium Level 8.5 mg/dL (8.5-10.1) Total Bilirubin 0.4 mg/dL (0.2-1.0) Aspartate Amino Transf (AST/SGOT) 19 U/L (15-37) Alanine Aminotransferase (ALT/SGPT) 51 U/L (16-63) Alkaline Phosphatase 84 U/L (46-116) Total Protein 6.2 g/dL (6.4-8.2) Albumin 2.6 g/dL (3.4-5.0) Albumin/Globulin Ratio 0.7 (1.0-1.7) Micro RUN DATE: 05/14/21 [facility] *LIVE* PAGE 1 RUN TIME: 1106 Specimen Inquiry PATIENT: DANIEL PAINTER ACCT: [id number] LOC: [address] [place] [address] U: [id number] AGE/SX: 40/M ROOM: [facility] RE05/08/[address]: YENY BORDEN III, DO : 1980 BED: 1 DIS: STATUS: ADM IN TLOC: SPEC #: [id number] GABRIELA: 05/12/21-1099 STATUS: RES REQ #: [id number] RECD: 05/12/21-[address]: IVELISSE ORTEGA MD SOURCE: BLOOD ENTR: 05/12/21-[address]: [facility] III[facility] ZEV GABRIEL MD, VENU S MD NON,STAFF ORDERED: BCULT Procedure Result BLOOD CULTURE Preliminary NO GROWTH AFTER 2 DAYS Objective: Assessment: Patient transferred from [place] with right upper extremity swelling and pain Ultrasound revealed right perigraft fluid collection Enterococcus ampicillin sensitive, daptomycin sensitive, and staph hominis bacteremia May 05, 2021 from [facility] Repeat BC neg here so far from May 12, 2021 1. Possible right upper extremity infection with tenderness and swelling around the right arm AV shunt. Ultrasound at [facility] showed a fluid collection in the perigraft area. Vascular surgery has evaluated the patient. Repeat ultrasound reviewed No surgical intervention planned 2. Superficial abrasion over the lateral and distal aspect of the right arm AV shunt. Cult of fluid done remains negative 3. End-stage renal disease, on hemodialysis, 6. Status post permanent HDC placement Hyponatremia and hyperkalemia 4. Hypertension. 5. Anemia of chronic disease. 6. History of intravenous drug user. 7. History of ALLERGIES TO PENICILLIN, SULFA, VANCOMYCIN. 8. History of noncompliance Plan: Plan of Care Patient can be discharged home on p.o. linezolid Case management to assist with the linezolid prescription Follow-up repeat blood cultures here and swab cultures neg so far Vascular Surgery have recommended patient follow-up with his previous surgeon upon discharge Hopefully graft can be salvaged Elevate right upper extremity. Continue local wound care as directed Discussed with nursing staff IVELISSE ORTEGA MD May 15, 2021 08:12
--- NOTE | 2021-05-15 08:41 | PDOC ---
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 Enterococcus bacteremia - sensitivities from microbiology lab faxed over Pending TTE Vascular surgery consult Consider ID consult Nephrology consult for HD Continue empiric IV antibiotics Pending blood cultures Heparin for DVT prophylaxis Protonix GI prophylaxis ADA diet Full code Discussed with RN and SW Disposition inpatient management as above Surrogate decision maker is History of Present Illness History of Present Illness Mr Scott is a 40-year-old male with past medical history of ESRD TTS, IV drug abuse, noncompliance, and multiple times at [facility] for partially occluded temporary dialysis catheters and infections. Apparently, he was lost to follow-up at [facility] but he did go to [facility] and had an AV graft placed and has been used for approximately 4 weeks prior to admission. He did not up until 2.5 weeks prior to admission he was using IV methamphetamine injecting in his left arm.. Of note when patient was at [facility] his hemoglobin was 6.9 and he needed transfusion. The graft was also evaluated and ultrasound that showed no focal stenosis in the fistula however there was fluid adjacent to the graft itself that was consistent with an abscess. Patient only complains of pain and swelling around her his upper extremity. Denies any fevers, chest pain, shortness of breath, abdominal pain, dysuria, diarrhea or bloody stools. Patient was transferred over here to [place] for vascular surgery support and evaluation. 05/10/2021 No acute events overnight. Afebrile. Labs are stable. Patient only complains of throbbing right arm pain. Patient's chart, labs, images were reviewed and discussed with RN 05/11; No overnight events afebrile. Labs stable. Still complaining of throbbing right arm pain. K6.2 today. He is more swollen he has been eating and liberalized his fluid intake over the last couple days. Discussed with microbiology lab [facility] is Enterococcus positive blood cultures. 05/12: Sodium low potassium high. Feeling very bloated notes he has been eating and drinking a lot more since he is in recovery from methamphetamine abuse. Enterococcus cultures reviewed sensitive to ampicillin. Discussed with ID. Will need to delay tunneling of dialysis catheter at least 48 hours to wait for repeat blood cultures negative. 05/13: Hb 7.7. No complaints today. Afebrile. Plan for n.p.o. until dialysis catheter tomorrow. Repeat blood cultures with no growth to date. 05/14: Hb 6.9, K7.2. N.p.o. for tunneled dialysis catheter later today he was able to eat breakfast somehow. Seen on dialysis, a little drowsy. Low k bath and blood 1u PRBC ordered. Afebrile overnight. Tunneled dialysis catheter placed per IR. Having some drainage in his right extremity graft site culture NG TD. Plan to transition to oral linezolid. He is still fluid overloaded and needs additional ultrafiltration at dialysis today. Will likely be able to discharge over the weekend. Vitals/I&O Vitals/I&O: Vital Signs Date Time Temp Pulse Resp B/P (MAP) Pulse Ox O2 Delivery O2 Flow Rate FiO2 05/15/21 08:03 90 182/123 05/15/21 08:02 Room Air 05/15/21 06:51 98.1 18 97 98.1 05/15/21 06:33 2.0 I & O 05/14/21 05/14/21 05/15/21 15:00 23:00 07:00 Intake Total 300 ml 950 ml 480 ml Balance 300 ml 950 ml 480 ml Physical Exam Physical Exam: GENERAL: Alert, oriented x 3, well-nourished, well-developed male, lying in bed comfortably, in no acute distress, HEENT: Normocephalic, atraumatic. Anicteric. No thrush. Oral mucosa moist. NECK: Supple, no JVD. Right IJ temporary dialysis catheter in place. LUNGS: Clear bilaterally. No wheezing. HEART: S1, S2. No gallops or murmurs. ABDOMEN: Soft, nontender, nondistended. Bowel sounds present. EXTREMITIES: Right upper extremity swelling present. There is an abrasion present lateral and distal aspect of the right AV shunt area with some drainage. No surrounding redness, underlying fluctuance or drainage noted. Previous scar from recent graft is well healed. No drainage. There is mild tenderness present. Right upper extremity swelling extends to the fingers. No cyanosis or clubbing. CENTRAL NERVOUS SYSTEM: Alert, oriented x 3, grossly nonfocal. PSYCHIATRIC: Calm and cooperative. DERMATOLOGIC: Warm, dry, no generalized rash except for above. General: Alert, Oriented X3, Cooperative, No acute distress Heart: Regular rate Abdomen: Normal bowel sounds Extremities: No clubbing, Other (Tenderness in the right arm near the AV graft site. Increased swelling at the right upper extremity.) Skin: No breakdown Labs Labs: Laboratory Tests Test 05/14/21 08:45 White Blood Count 6.2 x10^3/uL (4.0-11.0) Red Blood Count 2.27 x10^6/uL (4.30-5.70) Hemoglobin 6.9 g/dL (13.0-17.5) Hematocrit 20.8 % (39.0-53.0) Mean Corpuscular Volume 92 fL (79-100) Mean Corpuscular Hemoglobin 31 pg (25-35) Mean Corpuscular Hemoglobin Concent 33 g/dL (31-37) Red Cell Distribution Width 19.2 % (11.5-14.5) Platelet Count 137 x10^3/uL (140-400) Neutrophils (%) (Auto) 83 % (31-73) Lymphocytes (%) (Auto) 12 % (24-48) Monocytes (%) (Auto) 3 % (0-9) Eosinophils (%) (Auto) 2 % (0-3) Basophils (%) (Auto) 1 % (0-3) Neutrophils # (Auto) 5.1 x10^3/uL (1.8-7.7) Lymphocytes # (Auto) 0.7 x10^3/uL (1.0-4.8) Monocytes # (Auto) 0.2 x10^3/uL (0.0-1.1) Eosinophils # (Auto) 0.1 x10^3/uL (0.0-0.7) Basophils # (Auto) 0.1 x10^3/uL (0.0-0.2) Sodium Level 132 mmol/L (136-145) Potassium Level 7.2 mmol/L (3.5-5.1) Chloride Level 96 mmol/L (98-107) Carbon Dioxide Level 25 mmol/L (21-32) Anion Gap 11 (6-14) Blood Urea Nitrogen 58 mg/dL (8-26) Creatinine 6.6 mg/dL (0.7-1.3) Estimated GFR (Cockcroft-Gault) 9.4 BUN/Creatinine Ratio 9 (6-20) Glucose Level 137 mg/dL (70-99) Calcium Level 8.5 mg/dL (8.5-10.1) Total Bilirubin 0.4 mg/dL (0.2-1.0) Aspartate Amino Transf (AST/SGOT) 19 U/L (15-37) Alanine Aminotransferase (ALT/SGPT) 51 U/L (16-63) Alkaline Phosphatase 84 U/L (46-116) Total Protein 6.2 g/dL (6.4-8.2) Albumin 2.6 g/dL (3.4-5.0) Albumin/Globulin Ratio 0.7 (1.0-1.7) Comment Review of Relevant I have reviewed the following items guerda (where applicable) has been applied. Medications: Current Medications Medications (Trade) Dose Ordered Sig/Gemma Route PRN Reason Start Time Stop Time Status Last Admin Dose Admin Midazolam HCl (Versed) 5 mg 1X ONCE IV 05/14/21 13:00 05/14/21 13:03 DC 05/14/21 13:00 Fentanyl Citrate (Fentanyl 2ml Vial) 100 mcg 1X ONCE IV 05/14/21 13:00 05/14/21 13:03 DC 05/14/21 13:00 Lidocaine/ Epinephrine (LIDOCAINE 1%-EPI 1:100,000 Multi-Dose) 20 ml 1X ONCE INJ 05/14/21 13:00 05/14/21 13:03 DC 05/14/21 13:00 Fentanyl Citrate (Fentanyl 2ml Vial) 75 mcg 1X ONCE IVP 05/14/21 18:15 05/14/21 18:16 DC 05/14/21 17:52 Justifications for Admission Other Justification SERGIO GRAF MD May 15, 2021 08:41
--- NOTE | 2021-05-15 08:58 | PDOC ---
Provider Note Date of Service: DATE: 05/15/21 TIME: 08:50 Provider Note Provider Note S; Pt with end-stage renal disease on hemodialysis with questionable right arm graft infection that we have been monitoring. Thus far his wound and most recent blood cultures have had no significant growth or specific organisms. He remains on IV antibiotics and reports feeling better. He has also had left arm access that failed and was removed. His right arm graft was placed approximately 3 months ago at [place]. Continues to endorse pain in arm. Minimal drainage still from sinus, cloudy/clear. He remains afebrile without leukocytosis. O: Vital signs stable, afebrile. Palpable pulses, in right arm. No appreciable fluctuance around AV graft, there is a strong thrill proximally. He has moderate edema in his right arm. A: Perigraft fluid collection Enterococcus bacteremia on admission P: Recent blood cultures (05/12) have no growth at 2 days thus far. Cultures of fluid from sinus tract without growth. No obvious signs of active infection. He has had left arm graft removal in the past, agree with continued attempt at graft salvage if possible, therefore no surgical plans at this time, we will co ntinue to monitor peripherally. Continue to dialyze via catheter, do not access graft. Elevate right arm with 2 pillows. If patient is still here on Tuesday we will follow up then, otherwise the patient is in understanding that if he discharges over the weekend he needs to follow-up with his surgeon who placed the graft from [place] within the week. Please call with questions or concerns over the weekend. Continue IV antibiotics per infectious disease. Justicifation of Admission Dx: Justifications for Admission: Justification of Admission Dx: Yes Sepsis: Bacteremia SHERI MORGAN May 15, 2021 08:58
[2021-05-15] MEDS: LINEZOLID 600 MG TABLET PO SCH ×2 (09:09→20:09)
[2021-05-15 11:00] VITALS: BP 126/78
--- NOTE | 2021-05-15 11:05 | PDOC ---
Renal-Progress Notes Subjective Notes Notes NO NEW COMPLAINTS, STILL HAS RIGHT ARM PAIN History of Present Illness Hx of present illness STILL HAS HYPERVOLEMIA Vitals Vitals Vital Signs Date Time Temp Pulse Resp B/P (MAP) Pulse Ox O2 Delivery O2 Flow Rate FiO2 05/15/21 09:12 Room Air 05/15/21 08:03 90 182/123 05/15/21 06:51 98.1 18 97 98.1 05/15/21 06:33 2.0 Weight Weight [ ] I.O. Intake and Output Intake and Output 05/15/21 07:00 Intake Total 1730 ml Balance 1730 ml Intake Oral 1380 ml Blood Product IV Normal Saline Flush 350 ml # Voids 1 Micro Micro Microbiology 05/12/21 Blood Culture - Preliminary, Resulted NO GROWTH AFTER 2 DAYS 05/11/21 Gram Stain - Final, Resulted 05/11/21 Aerobic and Anaerobic Culture - Preliminary, Resulted Review of Systems Constitutional: yes: weakness, alert, oriented Ears/Nose/Throat: Yes: no symptom reported Eyes: Yes: no symptom reported Pulmonary: Yes no symptom reported Cardiovascular: Yes no symptom reported Gastrointestional: Yes: constipation Genitourinary: Yes: no symptom reported Musculoskeletal: Yes: arm pain, muscle stiffness Skin: Yes no symptom reported Psychiatric/Neurological: Yes: no symptom reported Endocrine: Yes: no symptom reported Physical Exam General Appearance: no apparent distress Skin: warm Respiratory: bilateral CTA Heart: S1S2 Abdomen: soft, bowel sounds present Genitourinary: bladder flat Extremities: pulses present, other (RIGHT ARM AVG WITH TENDERNESS, ERYTHEMA, THRILL AND BRUIT PRESENT) Neurology: alert, oriented Assessment Assessment IMP HYPERKALEMIA-RESOLVED HYPERKALEMIA ESRD-TTS-S/P NEW TDC MPGN ANEMIA HTN GLUCOSE INTOLERANCE POSS LINE SEPSIS RIGHT ARM BB AVG SITE INFECTION IVDA ENTEROCOCCAL BACTEREMIA PLAN ANTIBIOTICS ARANESP HD AGAIN TODAY UF TOLERATED ABOUT LITERS VASCULAR SURGERY EVALUATION ENC ABSTINENCE FROM IVDA WILL FOLLOW D/W ITZEL HANNAH MD May 15, 2021 11:05
--- NOTE | 2021-05-15 11:36 | NUR ---
SW following. Discussed with RN, pt doing dialysis today and tomorrow. Discharge on PO abx when ready. SW will continue to follow.
[2021-05-15 12:09] LABS: BASO % 1 % (0-3); EOS # 0.1 x10^3/uL (0.0-0.7); EOS % 2 % (0-3); HEMATOCRIT 22.3 % (39.0-53.0); HEMOGLOBIN 7.5 g/dL (13.0-17.5); LYMPH # 0.7 x10^3/uL (1.0-4.8); LYMPH % 13 % (24-48); MEAN CORPUSCULAR HEMOGLOBIN 30 pg (25-35); MEAN CORPUSCULAR HGB CONC 34 g/dL (31-37); MEAN CORPUSCULAR VOLUME 90 fL (79-100); MONO # 0.3 x10^3/uL (0.0-1.1); MONO % 5 % (0-9); NEUT # 4.5 x10^3/uL (1.8-7.7); NEUT % 80 % (31-73); PLATELET COUNT 127 x10^3/uL (140-400); RED BLOOD COUNT 2.48 x10^6/uL (4.30-5.70); RED CELL DISTRIBUTION WIDTH 19.4 % (11.5-14.5); WHITE BLOOD COUNT 5.6 x10^3/uL (4.0-11.0)
[2021-05-15 12:12] LABS: CALCIUM 8.4 mg/dL (8.5-10.1); CREATININE 5.4 mg/dL (0.7-1.3); GFR 11.9; POTASSIUM 5.9 mmol/L (3.5-5.1)
[2021-05-15] MEDS: ISOSORBIDE MONONITRATE 20 MG TABLET PO SCH ×2 (12:21→16:27)
[2021-05-15 15:00] VITALS: BP 129/81
[2021-05-15 19:47] VITALS: BP 129/82
[2021-05-15] MEDS: MEROPENEM 500 MG in IV NORMAL SALINE 50ML 50 ML IV SCH (20:10)
[2021-05-15 23:39] VITALS: BP 135/84
[2021-05-16] MEDS: fentaNYL PF VIAL 100 MCG/2 ML VIAL IVP PRN ×7 (02:42→23:31)
[2021-05-16 03:16] VITALS: BP 159/101
[2021-05-16 07:00] VITALS: BP 155/101
--- NOTE | 2021-05-16 08:16 | PDOC ---
Infectious Disease Note Subjective: Subjective Patient feels better Continues to intermittently drain from the right upper extremity graft site Awaiting dialysis session later today Denies fever, nausea, vomiting, shortness of breath, diarrhea, abdominal pain,gen rash Swelling of the right upper extremity is improving though slowly Vital Signs: Vital Signs Vital Signs Date Time Temp Pulse Resp B/P (MAP) Pulse Ox O2 Delivery O2 Flow Rate FiO2 05/16/21 05:58 Room Air 05/16/21 03:16 98.0 87 18 159/101 (120) 96 98.0 05/15/21 20:00 2.0 Physical Exam: PHYSICAL EXAM GENERAL: Alert, oriented x 3, well-nourished, well-developed male, lying in bed comfortably, in no acute distress, HEENT: Normocephalic, atraumatic. Anicteric. No thrush. Oral mucosa moist. NECK: Supple, no JVD. Right IJ temporary dialysis catheter in place. LUNGS: Clear bilaterally. No wheezing. Chest wall permanent left HDC catheter present HEART: S1, S2. No gallops or murmurs. ABDOMEN: Soft, nontender, nondistended. Bowel sounds present. EXTREMITIES: Right upper extremity swelling present. Slightly improved there is an abrasion present lateral and distal aspect of the right AV shunt area with continued drainage. No surrounding redness, underlying fluctuance or drainage noted. Previous scar from recent graft is well healed. No drainage. There is mild tenderness present. Right upper extremity swelling extends to the fingers. No cyanosis or clubbing. CENTRAL NERVOUS SYSTEM: Alert, oriented x 3, grossly nonfocal. PSYCHIATRIC: Calm and cooperative. DERMATOLOGIC: Warm, dry, no generalized rash except for above. Medications: Inpatient Meds: Medications reviewed. Labs: Lab Laboratory Tests Test 05/15/21 11:06 White Blood Count 5.6 x10^3/uL (4.0-11.0) Red Blood Count 2.48 x10^6/uL (4.30-5.70) Hemoglobin 7.5 g/dL (13.0-17.5) Hematocrit 22.3 % (39.0-53.0) Mean Corpuscular Volume 90 fL (79-100) Mean Corpuscular Hemoglobin 30 pg (25-35) Mean Corpuscular Hemoglobin Concent 34 g/dL (31-37) Red Cell Distribution Width 19.4 % (11.5-14.5) Platelet Count 127 x10^3/uL (140-400) Neutrophils (%) (Auto) 80 % (31-73) Lymphocytes (%) (Auto) 13 % (24-48) Monocytes (%) (Auto) 5 % (0-9) Eosinophils (%) (Auto) 2 % (0-3) Basophils (%) (Auto) 1 % (0-3) Neutrophils # (Auto) 4.5 x10^3/uL (1.8-7.7) Lymphocytes # (Auto) 0.7 x10^3/uL (1.0-4.8) Monocytes # (Auto) 0.3 x10^3/uL (0.0-1.1) Eosinophils # (Auto) 0.1 x10^3/uL (0.0-0.7) Basophils # (Auto) 0.0 x10^3/uL (0.0-0.2) Sodium Level 133 mmol/L (136-145) Potassium Level 5.9 mmol/L (3.5-5.1) Chloride Level 98 mmol/L (98-107) Carbon Dioxide Level 27 mmol/L (21-32) Anion Gap 8 (6-14) Blood Urea Nitrogen 47 mg/dL (8-26) Creatinine 5.4 mg/dL (0.7-1.3) Estimated GFR (Cockcroft-Gault) 11.9 Glucose Level 93 mg/dL (70-99) Calcium Level 8.4 mg/dL (8.5-10.1) Micro RUN DATE: 05/14/21 [facility] [employer] [facility] *LIVE* PAGE 1 RUN TIME: 1106 Specimen Inquiry PATIENT: DANIEL PAINTER ACCT: [id number] LOC: [address] [place] [address] U: [id number] AGE/SX: 40/M ROOM: [facility] RE05/08/[address]: YENY BORDEN III, DO : 1980 BED: 1 DIS: STATUS: ADM IN TLOC: SPEC #: [id number] GABRIELA: 05/12/21-1099 STATUS: RES REQ #: [id number] RECD: 05/12/21-[address]: IVELISSE ORTEGA MD SOURCE: BLOOD ENTR: 05/12/21-[address]: YENY BORDEN III, DO SPDESC: ZEV GABRIEL MD, VENU S MD NON,STAFF ORDERED: BCULT Procedure Result BLOOD CULTURE Preliminary NO GROWTH AFTER 2 DAYS Objective: Assessment: Patient transferred from [place] with right upper extremity swelling and pain Ultrasound revealed right perigraft fluid collection Enterococcus ampicillin sensitive, daptomycin sensitive, and staph hominis bacteremia May 05, 2021 from [facility] Repeat BC neg here so far from May 12, 2021 1. Possible right upper extremity infection with tenderness and swelling around the right arm AV shunt. Ultrasound at [facility] showed a fluid collection in the perigraft area. Vascular surgery has evaluated the patient. Repeat ultrasound reviewed No surgical intervention planned 2. Superficial abrasion over the lateral and distal aspect of the right arm AV shunt. Cult of fluid done remains negative 3. End-stage renal disease, on hemodialysis, 6. Status post permanent HDC placement Hyponatremia and hyperkalemia 4. Hypertension. 5. Anemia of chronic disease. 6. History of intravenous drug user. 7. History of ALLERGIES TO PENICILLIN, SULFA, VANCOMYCIN. 8. History of noncompliance 9. Thrombocytopenia Plan: Plan of Care cont merrem for now, Continue linezolid monitor plt Case management to assist with the linezolid prescription for 10 days Follow-up repeat blood cultures here and swab cultures neg so far Vascular Surgery have recommended patient follow-up with his previous surgeon upon discharge Hopefully graft can be salvaged Elevate right upper extremity. Continue local wound care as directed Discussed with nursing staff IVELISSE ORTEGA MD May 16, 2021 08:16
[2021-05-16] MEDS ORDERED: DIALYSIS PATIENT. MC PRN ×2 (10:45)
[2021-05-16] MEDS ORDERED: IV NORMAL SALINE 1000ML BAG 1,000 ML IV PRN ×2 (10:45)
[2021-05-16] MEDS: cloNIDine HCL 0.1 MG TABLET PO SCH (10:56)
[2021-05-16] MEDS: LACTOBACILLUS RHAMNOSUS GG 1 CAPSULE. PO SCH ×2 (10:57→20:23)
[2021-05-16] MEDS: CALCIUM ACETATE 667 MG CAPSULE PO SCH ×3 (10:57→17:58)
[2021-05-16] MEDS: PANTOPRAZOLE 40 MG TABLET.DR. PO SCH (10:57)
[2021-05-16] MEDS: CARVEDILOL 12.5 MG TABLET. PO SCH ×2 (10:57→17:58)
[2021-05-16] MEDS: ISOSORBIDE MONONITRATE 20 MG TABLET PO SCH ×2 (10:57→17:58)
[2021-05-16] MEDS: LINEZOLID 600 MG TABLET PO SCH ×2 (10:58→20:23)
[2021-05-16] MEDS: CETIRIZINE HCL 10 MG TABLET. PO SCH (10:58)
[2021-05-16] MEDS: oxyCODONE/APAP 10/325 1 TAB TABLET PO PRN ×2 (10:58→17:59)
[2021-05-16] MEDS: GABAPENTIN 100 MG CAPSULE. PO SCH ×2 (10:58→20:23)
[2021-05-16] MEDS: FOLIC/VIT B COMP W-C (RENAL) TABLET. PO SCH (10:58)
[2021-05-16 11:00] VITALS: BP 189/115
--- NOTE | 2021-05-16 11:51 | PDOC ---
DATE OF SERVICE: DOS: DATE: 05/16/21 TIME: 11:49 SUBJECTIVE ROS Follow-up for ESRD on dialysis Patient refused to go to dialysis yesterday in the evening due to dinnertime CVS: no Orthopnea, no CP RESP: no SOB, no GORDILLO GI: no Nausea, no Vomiting : no Dysuria, no Urgency OBJECTIVE Vital Signs Vital Signs Date Time Temp Pulse Resp B/P (MAP) Pulse Ox O2 Delivery O2 Flow Rate FiO2 05/16/21 11:44 97 Room Air 2.0 05/16/21 11:00 98.2 93 18 189/115 (139) 98.2 I & 0 Intake and Output 05/16/21 07:00 Intake Total 670 ml Balance 670 ml Intake Oral 670 ml # Voids 2 PHYSICAL EXAM Physical Exam GEN: Awake, Oriented x 3, In no distress EYES: Vision Unchanged, Conjunctiva Normal EN: No EN Drainage, Mucous Membranes moist NECK: no JVD, no JVP, Supple, no Thyromegaly CVS: S1S2, + Murmur, No Gallop, No Rub,+ Edema RESP: RARE BASAL Rales, no Rhonchi,no Acc. Muscle Use GI: BS + ve, NO Bruit, Non Tender, Non Distended : no CVA tenderness, no Suprapubic Tenderness DIAGNOSIS/ASSESSMENT Assessment & Plan ESRD: Dialysis today as ordered F 180 NR 4.0 Hrs 2 K 2.5 Ca 140 Na 40 HC03 Qb 350 + Qd 500+ Heparin 0 Units Uf 5 Kgs or to dry weight as tolerated Patient believes he is 30 pounds above his dry weight May give 25-50 gms of 25% Albumin if needed to maintain Hemodynamic stability Treatment plan reviewed and discussed with director corporate [ ] ANEMIA; [] Aranap as ordered, [] Transfuse [] with next HD as needed HTN: Current BP meds as reviewed. See orders for changes. BONE & MINERAL: [] Discussed Plan of Care with family [] at bedside [] over the phone COMMENT/RELEVANT DATA Meds Current Medications Medications (Trade) Dose Ordered Sig/Gemma Start Time Stop Time Status Last Admin Dose Admin Acetaminophen (Tylenol) 500 mg 1X PRN PRN 05/12/21 09:15 05/13/21 09:14 DC Albumin Human 200 ml @ 200 mls/hr 1X PRN PRN 05/12/21 09:15 05/12/21 15:14 DC Alprazolam (Xanax) 0.5 mg PRN Q6HRS PRN 05/08/21 23:15 05/12/21 14:11 DC 05/11/21 20:35 0.5 MG Calcium Acetate (Phoslo) 667 mg TIDWMEALS 05/09/21 08:00 05/16/21 10:57 667 MG Carvedilol (Coreg) 25 mg BIDWMEALS 05/09/21 08:00 05/16/21 10:57 25 MG Cetirizine HCl (ZyrTEC) 10 mg DAILY 05/09/21 09:00 05/16/21 10:58 10 MG Clonidine HCl (Catapres) 0.1 mg DAILY 05/09/21 09:00 05/16/21 10:56 0.1 MG Darbepoetin Uriel (ARANESP for DIALYSIS PTS) 25 mcg WEEKLYHS 05/09/21 21:00 Diphenhydramine HCl (Benadryl) 25 mg 1X PRN PRN 05/12/21 09:15 05/13/21 09:14 DC Fentanyl Citrate (Fentanyl 2ml Vial) 75 mcg 1X ONCE 05/14/21 18:15 05/14/21 18:16 DC 05/14/21 17:52 75 MCG Gabapentin (Neurontin) 100 mg BID 05/09/21 00:00 05/16/21 10:58 100 MG Hydralazine HCl (Apresoline) 100 mg DAILY 05/09/21 09:00 05/16/21 10:58 100 MG Info (PHARMACY MONITORING -- do not chart) 1 each PRN DAILY PRN 05/16/21 10:45 UNV Isosorbide Mononitrate (Ismo) 20 mg BID92 05/15/21 09:00 05/16/21 10:57 20 MG Lactobacillus Rhamnosus (Culturelle) 1 cap BID 05/09/21 21:00 05/16/21 10:57 1 CAP Lidocaine HCl (Xylocaine-Mpf 1% 2ml Vial) 2 ml 1X PRN PRN 05/12/21 09:15 05/13/21 09:14 DC Lidocaine/ Epinephrine (LIDOCAINE 1%-EPI 1:100,000 Multi-Dose) 20 ml 1X ONCE 05/14/21 13:00 05/14/21 13:03 DC 05/14/21 13:00 11 ML Linezolid (Zyvox) 600 mg BID 05/15/21 09:00 05/16/21 10:58 600 MG Linezolid/Dextrose 300 ml @ 300 mls/hr Q12HR 05/09/21 05:00 05/09/21 23:55 DC 05/09/21 20:13 300 MLS/HR Meropenem 500 mg/ Sodium Chloride 50 ml @ 100 mls/hr QHS 05/09/21 00:30 05/15/21 20:10 100 MLS/HR Midazolam HCl (Versed) 5 mg 1X ONCE 05/14/21 13:00 05/14/21 13:03 DC 05/14/21 13:00 2 MG Morphine Sulfate (Morphine Sulfate) 4 mg PRN Q2HR PRN 05/08/21 23:15 05/12/21 09:33 DC 05/12/21 05:53 4 MG Ondansetron HCl (Zofran) 4 mg PRN Q4HRS PRN 05/08/21 23:15 Oxycodone/ Acetaminophen (Percocet 10/325) 1 tab PRN Q6HRS PRN 05/09/21 13:00 05/16/21 10:58 1 TAB Pantoprazole Sodium (Protonix) 40 mg DAILYAC 05/09/21 07:30 05/16/21 10:57 40 MG Piperacillin Sod/ Tazobactam Sod (Zosyn Per Pharmacy) 1 each PRN DAILY PRN 05/08/21 23:15 05/09/21 00:14 DC Sodium Chloride 1,000 ml @ 400 mls/hr Q2H30M PRN 05/16/21 10:45 05/16/21 22:44 Vancomycin HCl (Vanco Per Pharmacy) 1 each PRN DAILY PRN 05/08/21 23:15 05/09/21 00:14 DC Vitamin B Complex/ Vitamin C (Diane-Jerrod) 1 tab DAILY 05/09/21 09:00 05/16/21 10:58 1 TAB Results All relevant outside records, renal labs, imaging studies, telemetry/EKG's were reviewed. Justicifation of Admission Dx: Justifications for Admission: Justification of Admission Dx: Yes Sepsis: Bacteremia OLLIE ORTEGA MD May 16, 2021 11:51
--- NOTE | 2021-05-16 12:41 | PDOC ---
SURGICAL PROGRESS NOTE DATE: 05/16/21 TIME: 12:38 Subjective Patient was seen at the bedside this morning and is doing well. He is getting ready to take a shower. He had no acute events overnight. Vital Signs Vital Signs Date Time Temp Pulse Resp B/P (MAP) Pulse Ox O2 Delivery O2 Flow Rate FiO2 05/16/21 11:44 97 Room Air 2.0 05/16/21 11:00 98.2 93 18 189/115 (139) 98.2 I&O Intake and Output 05/16/21 07:00 Intake Total 670 ml Balance 670 ml Intake Oral 670 ml # Voids 2 General: Alert, Oriented X3, Cooperative Extremities: Normal pulses, Other (Good thrill in right upper extremity graft) Skin: Other (Small punctate lesion in the central portion of the graft without purulent drainage, there is no cellulitis, there is no malodor) Labs Laboratory Tests Test 05/15/21 11:06 White Blood Count 5.6 x10^3/uL (4.0-11.0) Red Blood Count 2.48 x10^6/uL (4.30-5.70) Hemoglobin 7.5 g/dL (13.0-17.5) Hematocrit 22.3 % (39.0-53.0) Mean Corpuscular Volume 90 fL (79-100) Mean Corpuscular Hemoglobin 30 pg (25-35) Mean Corpuscular Hemoglobin Concent 34 g/dL (31-37) Red Cell Distribution Width 19.4 % (11.5-14.5) Platelet Count 127 x10^3/uL (140-400) Neutrophils (%) (Auto) 80 % (31-73) Lymphocytes (%) (Auto) 13 % (24-48) Monocytes (%) (Auto) 5 % (0-9) Eosinophils (%) (Auto) 2 % (0-3) Basophils (%) (Auto) 1 % (0-3) Neutrophils # (Auto) 4.5 x10^3/uL (1.8-7.7) Lymphocytes # (Auto) 0.7 x10^3/uL (1.0-4.8) Monocytes # (Auto) 0.3 x10^3/uL (0.0-1.1) Eosinophils # (Auto) 0.1 x10^3/uL (0.0-0.7) Basophils # (Auto) 0.0 x10^3/uL (0.0-0.2) Sodium Level 133 mmol/L (136-145) Potassium Level 5.9 mmol/L (3.5-5.1) Chloride Level 98 mmol/L (98-107) Carbon Dioxide Level 27 mmol/L (21-32) Anion Gap 8 (6-14) Blood Urea Nitrogen 47 mg/dL (8-26) Creatinine 5.4 mg/dL (0.7-1.3) Estimated GFR (Cockcroft-Gault) 11.9 Glucose Level 93 mg/dL (70-99) Calcium Level 8.4 mg/dL (8.5-10.1) Assessment/Plan End-stage renal disease on hemodialysis--patient's right upper extremity graft is intact with a small punctate area of drainage. He is responding well to antibiotic therapy. Will defer treatment and duration to the primary medical team. Currently there is no surgical intervention necessary and we will attempt graft salvage. Patient does abuse and inject IV methamphetamine with the last usage approximately 2 weeks ago. This has been discussed with the patient by the primary team as I talked to Dr. Jaeger this morning. All questions were answered to the patient satisfaction from my role in his care. Stefania Greenberg DO, FACS Justicifation of Admission Dx: Justifications for Admission: Justification of Admission Dx: Yes Sepsis: Bacteremia STEFANIA GREENBERG DO May 16, 2021 12:41
--- NOTE | 2021-05-16 13:16 | PDOC ---
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 Enterococcus bacteremia - sensitivities from microbiology lab faxed over Pending TTE Vascular surgery consult Consider ID consult Nephrology consult for HD Continue empiric IV antibiotics Pending blood cultures Heparin for DVT prophylaxis Protonix GI prophylaxis ADA diet Full code Discussed with RN and SW Disposition inpatient management as above Surrogate decision maker is History of Present Illness History of Present Illness Mr Scott is a 40-year-old male with past medical history of ESRD TTS, IV drug abuse, noncompliance, and multiple times at [facility] for partially occluded temporary dialysis catheters and infections. Apparently, he was lost to follow-up at [facility] but he did go to [place] and had an AV graft placed and has been used for approximately 4 weeks prior to admission. He did not up until 2.5 weeks prior to admission he was using IV methamphetamine injecting in his left arm.. Of note when patient was at [place] his hemoglobin was 6.9 and he needed transfusion. The graft was also evaluated and ultrasound that showed no focal stenosis in the fistula however there was fluid adjacent to the graft itself that was consistent with an abscess. Patient only complains of pain and swelling around her his upper extremity. Denies any fevers, chest pain, shortness of breath, abdominal pain, dysuria, diarrhea or bloody stools. Patient was transferred over here to [place] for vascular surgery support and evaluation. 05/10/2021 No acute events overnight. Afebrile. Labs are stable. Patient only complains of throbbing right arm pain. Patient's chart, labs, images were reviewed and discussed with RN 05/11; No overnight events afebrile. Labs stable. Still complaining of throbbing right arm pain. K6.2 today. He is more swollen he has been eating and liberalized his fluid intake over the last couple days. Discussed with microbiology lab [facility] is Enterococcus positive blood cultures. 05/12: Sodium low potassium high. Feeling very bloated notes he has been eating and drinking a lot more since he is in recovery from methamphetamine abuse. Enterococcus cultures reviewed sensitive to ampicillin. Discussed with ID. Will need to delay tunneling of dialysis catheter at least 48 hours to wait for repeat blood cultures negative. 05/13: Hb 7.7. No complaints today. Afebrile. Plan for n.p.o. until dialysis catheter tomorrow. Repeat blood cultures with no growth to date. 05/14: Hb 6.9, K7.2. N.p.o. for tunneled dialysis catheter later today he was able to eat breakfast somehow. Seen on dialysis, a little drowsy. Low k bath and blood 1u PRBC ordered. 05/15: Afebrile overnight. Tunneled dialysis catheter placed per IR. Having some drainage in his right extremity graft site culture NG TD. Plan to transition to oral linezolid. He is still fluid overloaded and needs additional ultrafiltration at dialysis today but refused. Afebrile overnight. Did not notice additional dialysis last night because he did not understand it was for ultrafiltration purposes. He is amenable to having additional dialysis today. Still with some drainage at his graft site implants not foul-smelling culture returned back with no growth. Tolerating linezolid. BP improved with addition of isosorbide Vitals/I&O Vitals/I&O: Vital Signs Date Time Temp Pulse Resp B/P (MAP) Pulse Ox O2 Delivery O2 Flow Rate FiO2 05/16/21 12:50 Room Air 05/16/21 11:44 97 2.0 05/16/21 11:00 98.2 93 18 189/115 (139) 98.2 I & O 05/15/21 05/15/21 05/16/21 15:00 23:00 07:00 Intake Total 670 ml Balance 670 ml Physical Exam Physical Exam: GENERAL: Alert, oriented x 3, well-nourished, well-developed male, lying in bed comfortably, in no acute distress, HEENT: Normocephalic, atraumatic. Anicteric. No thrush. Oral mucosa moist. NECK: Supple, no JVD. Right IJ temporary dialysis catheter in place. LUNGS: Clear bilaterally. No wheezing. Chest wall permanent left HDC catheter present HEART: S1, S2. No gallops or murmurs. ABDOMEN: Soft, nontender, nondistended. Bowel sounds present. EXTREMITIES: Right upper extremity swelling present. Slightly improved there is an abrasion present lateral and distal aspect of the right AV shunt area with continued drainage. No surrounding redness, underlying fluctuance or drainage noted. Previous scar from recent graft is well healed. No drainage. There is mild tenderness present. Right upper extremity swelling extends to the fingers. No cyanosis or clubbing. CENTRAL NERVOUS SYSTEM: Alert, oriented x 3, grossly nonfocal. PSYCHIATRIC: Calm and cooperative. DERMATOLOGIC: Warm, dry, no generalized rash except for above. General: Alert, Oriented X3, Cooperative Heart: Regular rate Abdomen: Normal bowel sounds Extremities: Normal pulses, Other (Good thrill in right upper extremity graft) Skin: Other (Small punctate lesion in the central portion of the graft without purulent drainage, there is no cellulitis, there is no malodor) Comment Review of Relevant I have reviewed the following items guerda (where applicable) has been applied. Justifications for Admission Other Justification SERGIO GRAF MD May 16, 2021 13:16
[2021-05-16 17:53] VITALS: BP 178/123
[2021-05-16 19:00] VITALS: BP 134/69
[2021-05-16] MEDS: DARBEPOETIN ALFA 25 MCG/0.42 ML DISP.SYRIN. SQ SCH (20:22)
[2021-05-16] MEDS: DARBEPOETIN ALFA 40 MCG/0.4 ML DISP.SYRIN. SQ SCH (20:22)
[2021-05-16] MEDS: MEROPENEM 500 MG in IV NORMAL SALINE 50ML 50 ML IV SCH (20:23)
[2021-05-16 23:00] VITALS: BP 143/78
[2021-05-17] MEDS: fentaNYL PF VIAL 100 MCG/2 ML VIAL IVP PRN ×8 (03:26→22:18)
[2021-05-17 07:30] VITALS: BP 163/96
--- NOTE | 2021-05-17 07:48 | PDOC ---
Infectious Disease Note Subjective: Subjective Patient feels better Continues to intermittently drain from the right upper extremity graft site Awaiting dialysis session later today Denies fever, nausea, vomiting, shortness of breath, diarrhea, abdominal pain,gen rash Swelling of the right upper extremity is improving though slowly Vital Signs: Vital Signs Vital Signs Date Time Temp Pulse Resp B/P (MAP) Pulse Ox O2 Delivery O2 Flow Rate FiO2 05/17/21 06:42 98 Room Air 05/16/21 23:31 2.0 05/16/21 23:00 97.9 92 20 143/78 (99) 97.9 Physical Exam: PHYSICAL EXAM GENERAL: Alert, oriented x 3, well-nourished, well-developed male, lying in bed comfortably, in no acute distress, HEENT: Normocephalic, atraumatic. Anicteric. No thrush. Oral mucosa moist. NECK: Supple, no JVD. Right IJ temporary dialysis catheter in place. LUNGS: Clear bilaterally. No wheezing. Chest wall permanent left HDC catheter present HEART: S1, S2. No gallops or murmurs. ABDOMEN: Soft, nontender, nondistended. Bowel sounds present. EXTREMITIES: Right upper extremity swelling present. Slightly improved there is an abrasion present lateral and distal aspect of the right AV shunt area with continued drainage. No surrounding redness, underlying fluctuance or drainage noted. Previous scar from recent graft is well healed. No drainage. There is mild tenderness present. Right upper extremity swelling extends to the fingers. No cyanosis or clubbing. CENTRAL NERVOUS SYSTEM: Alert, oriented x 3, grossly nonfocal. PSYCHIATRIC: Calm and cooperative. DERMATOLOGIC: Warm, dry, no generalized rash except for above. Medications: Inpatient Meds: Medications reviewed. Labs: Micro RUN DATE: 05/14/21 [facility] *LIVE* PAGE 1 RUN TIME: 1106 Specimen Inquiry PATIENT: DANIEL PAINTER ACCT: [id number] LOC: [address] [place] [address] U: [id number] AGE/SX: 40/M ROOM: [facility] RE05/08/[address]: YENY BORDEN III, DO : 1980 BED: 1 DIS: STATUS: ADM IN TLOC: SPEC #: [id number] GABRIELA: 05/12/21-1099 STATUS: RES REQ #: [id number] RECD: 05/12/[address]: IVELISSE ORTEGA MD SOURCE: BLOOD ENTR: 05/12/21-[address]: YENY BORDEN III, DO SPDESC: ZEV GABRIEL MD, VENU S MD NON,STAFF ORDERED: BCULT Procedure Result BLOOD CULTURE Preliminary NO GROWTH AFTER 2 DAYS Objective: Assessment: Patient transferred from [place] with right upper extremity swelling and pain Ultrasound revealed right perigraft fluid collection Enterococcus ampicillin sensitive, daptomycin sensitive, and staph hominis bacteremia May 05, 2021 from [facility] Repeat BC neg here so far from May 12, 2021 1. Possible right upper extremity infection with tenderness and swelling around the right arm AV shunt. Ultrasound at [facility] showed a fluid collection in the perigraft area. Vascular surgery has evaluated the patient. Repeat ultrasound reviewed No surgical intervention planned 2. Superficial abrasion over the lateral and distal aspect of the right arm AV shunt. Cult of fluid done remains negative 3. End-stage renal disease, on hemodialysis, 6. Status post permanent HDC placement Hyponatremia and hyperkalemia 4. Hypertension. 5. Anemia of chronic disease. 6. History of intravenous drug user. 7. History of ALLERGIES TO PENICILLIN, SULFA, VANCOMYCIN. 8. History of noncompliance 9. Thrombocytopenia Plan: Plan of Care cont merrem for now, Continue linezolid monitor plt ,cbc ordered for today Would like to avoid central line placement for this patient for outpatient antibiotic regimen Case management to assist with the linezolid prescription Follow-up repeat blood cultures here and swab cultures neg so far Vascular Surgery have recommended patient follow-up with his previous surgeon upon discharge pt remains of risk of graft loss Hopefully graft can be salvaged as he has limited access sites available Elevate right upper extremity. Continue local wound care as directed IVELISSE ORTEGA MD May 17, 2021 07:48
[2021-05-17] MEDS: LACTOBACILLUS RHAMNOSUS GG 1 CAPSULE. PO SCH ×2 (08:32→20:37)
[2021-05-17] MEDS: cloNIDine HCL 0.1 MG TABLET PO SCH (08:32)
[2021-05-17] MEDS: CETIRIZINE HCL 10 MG TABLET. PO SCH (08:32)
[2021-05-17] MEDS: ISOSORBIDE MONONITRATE 20 MG TABLET PO SCH ×2 (08:32→14:50)
[2021-05-17] MEDS: FOLIC/VIT B COMP W-C (RENAL) TABLET. PO SCH (08:33)
[2021-05-17] MEDS: GABAPENTIN 100 MG CAPSULE. PO SCH ×2 (08:33→20:37)
[2021-05-17] MEDS: LINEZOLID 600 MG TABLET PO SCH ×2 (08:33→20:37)
[2021-05-17] MEDS: CALCIUM ACETATE 667 MG CAPSULE PO SCH ×3 (08:33→17:45)
[2021-05-17] MEDS: CARVEDILOL 12.5 MG TABLET. PO SCH ×2 (08:33→17:45)
[2021-05-17] MEDS: PANTOPRAZOLE 40 MG TABLET.DR. PO SCH (08:33)
[2021-05-17] MEDS: oxyCODONE/APAP 10/325 1 TAB TABLET PO PRN ×2 (08:35→14:51)
--- NOTE | 2021-05-17 08:40 | PDOC ---
DATE OF SERVICE: DOS: DATE: 05/17/21 TIME: 08:38 SUBJECTIVE ROS ESRD on hemodialysis Patient had approximately 5 to 6 kg ultrafiltrate yesterday. Appears to feel much better today. CVS: no Orthopnea, no CP RESP: no SOB, no GORDILLO GI: no Nausea, no Vomiting : no Dysuria, no Urgency OBJECTIVE Vital Signs Vital Signs Date Time Temp Pulse Resp B/P (MAP) Pulse Ox O2 Delivery O2 Flow Rate FiO2 05/17/21 08:35 Room Air 05/17/21 08:35 98 05/17/21 08:33 92 143/78 05/16/21 23:31 2.0 05/16/21 23:00 97.9 20 97.9 I & 0 Intake and Output 05/17/21 06:59 Intake Total 1320 ml Balance 1320 ml Intake Oral 1320 ml PHYSICAL EXAM Physical Exam GEN: Awake, Oriented x 3, In no distress EYES: Vision Unchanged, Conjunctiva Normal EN: No EN Drainage, Mucous Membranes moist NECK: no JVD, min JVP, Supple, no Thyromegaly CVS: S1S2, + Murmur, No Gallop, No Rub,++ Edema RESP: no Rales, no Rhonchi,no Acc. Muscle Use GI: BS + ve, NO Bruit, Non Tender, Non Distended : no CVA tenderness, no Suprapubic Tenderness DIAGNOSIS/ASSESSMENT Assessment & Plan ESRD: Current fluid and E-lyte status does not necessitate emergent need for dialysis. Will re-evaluate for dialysis in the am and continue on Tuesday, TTS schedule. Anasarca: We will again ultrafilter tomorrow with dialysis ANEMIA; Aranap as ordered, Transfuse with next HD as needed for hemoglobin less than 7 HTN: Current BP meds as reviewed. See orders for changes. BONE & MINERAL: Follow phosphorus levels, alter binder regimen as needed. No recent phosphorus levels. Patient does appear to consume Dr. Bourne Discussed Plan of Care with patient at bedside COMMENT/RELEVANT DATA Meds Current Medications Medications (Trade) Dose Ordered Sig/Gemma Start Time Stop Time Status Last Admin Dose Admin Acetaminophen (Tylenol) 500 mg 1X PRN PRN 05/12/21 09:15 05/13/21 09:14 DC Albumin Human 200 ml @ 200 mls/hr 1X PRN PRN 05/12/21 09:15 05/12/21 15:14 DC Alprazolam (Xanax) 0.5 mg PRN Q6HRS PRN 05/08/21 23:15 05/12/21 14:11 DC 05/11/21 20:35 0.5 MG Calcium Acetate (Phoslo) 667 mg TIDWMEALS 05/09/21 08:00 05/17/21 08:33 667 MG Carvedilol (Coreg) 25 mg BIDWMEALS 05/09/21 08:00 05/17/21 08:33 25 MG Cetirizine HCl (ZyrTEC) 10 mg DAILY 05/09/21 09:00 05/17/21 08:32 10 MG Clonidine HCl (Catapres) 0.1 mg DAILY 05/09/21 09:00 05/17/21 08:32 0.1 MG Darbepoetin Uriel (ARANESP for DIALYSIS PTS) 25 mcg WEEKLYHS 05/09/21 21:00 05/16/21 20:22 25 MCG Diphenhydramine HCl (Benadryl) 25 mg 1X PRN PRN 05/12/21 09:15 05/13/21 09:14 DC Fentanyl Citrate (Fentanyl 2ml Vial) 75 mcg 1X ONCE 05/14/21 18:15 05/14/21 18:16 DC 05/14/21 17:52 75 MCG Gabapentin (Neurontin) 100 mg BID 05/09/21 00:00 05/17/21 08:33 100 MG Hydralazine HCl (Apresoline) 100 mg DAILY 05/09/21 09:00 05/17/21 08:33 100 MG Info (PHARMACY MONITORING -- do not chart) 1 each PRN DAILY PRN 05/16/21 10:45 UNV Isosorbide Mononitrate (Ismo) 20 mg [id number] 05/15/21 09:00 05/17/21 08:32 20 MG Lactobacillus Rhamnosus (Culturelle) 1 cap BID 05/09/21 21:00 05/17/21 08:32 1 CAP Lidocaine HCl (Xylocaine-Mpf 1% 2ml Vial) 2 ml 1X PRN PRN 05/12/21 09:15 05/13/21 09:14 DC Lidocaine/ Epinephrine (LIDOCAINE 1%-EPI 1:100,000 Multi-Dose) 20 ml 1X ONCE 05/14/21 13:00 05/14/21 13:03 DC 05/14/21 13:00 11 ML Linezolid (Zyvox) 600 mg BID 05/15/21 09:00 05/17/21 08:33 600 MG Linezolid/Dextrose 300 ml @ 300 mls/hr Q12HR 05/09/21 05:00 05/09/21 23:55 DC 05/09/21 20:13 300 MLS/HR Meropenem 500 mg/ Sodium Chloride 50 ml @ 100 mls/hr QHS 05/09/21 00:30 05/16/21 20:23 100 MLS/HR Midazolam HCl (Versed) 5 mg 1X ONCE 05/14/21 13:00 05/14/21 13:03 DC 05/14/21 13:00 2 MG Morphine Sulfate (Morphine Sulfate) 4 mg PRN Q2HR PRN 05/08/21 23:15 05/12/21 09:33 DC 05/12/21 05:53 4 MG Ondansetron HCl (Zofran) 4 mg PRN Q4HRS PRN 05/08/21 23:15 Oxycodone/ Acetaminophen (Percocet 10/325) 1 tab PRN Q6HRS PRN 05/09/21 13:00 05/17/21 08:35 1 TAB Pantoprazole Sodium (Protonix) 40 mg DAILYAC 05/09/21 07:30 05/17/21 08:33 40 MG Piperacillin Sod/ Tazobactam Sod (Zosyn Per Pharmacy) 1 each PRN DAILY PRN 05/08/21 23:15 05/09/21 00:14 DC Sodium Chloride 1,000 ml @ 400 mls/hr Q2H30M PRN 05/16/21 10:45 05/16/21 22:44 DC Vancomycin HCl (Vanco Per Pharmacy) 1 each PRN DAILY PRN 05/08/21 23:15 05/09/21 00:14 DC Vitamin B Complex/ Vitamin C (Diane-Jerrod) 1 tab DAILY 05/09/21 09:00 05/17/21 08:33 1 TAB Results All relevant outside records, renal labs, imaging studies, telemetry/EKG's were reviewed. Justicifation of Admission Dx: Justifications for Admission: Justification of Admission Dx: Yes Sepsis: Bacteremia OLLIE ORTEGA MD May 17, 2021 08:40
[2021-05-17 08:57] LABS: BASO % 0 % (0-3); EOS # 0.1 x10^3/uL (0.0-0.7); EOS % 3 % (0-3); HEMATOCRIT 21.9 % (39.0-53.0); HEMOGLOBIN 7.4 g/dL (13.0-17.5); LYMPH # 0.6 x10^3/uL (1.0-4.8); LYMPH % 15 % (24-48); MEAN CORPUSCULAR HEMOGLOBIN 30 pg (25-35); MEAN CORPUSCULAR HGB CONC 34 g/dL (31-37); MEAN CORPUSCULAR VOLUME 90 fL (79-100); MONO # 0.2 x10^3/uL (0.0-1.1); MONO % 5 % (0-9); NEUT # 3.4 x10^3/uL (1.8-7.7); NEUT % 78 % (31-73); PLATELET COUNT 116 x10^3/uL (140-400); RED BLOOD COUNT 2.42 x10^6/uL (4.30-5.70); RED CELL DISTRIBUTION WIDTH 18.4 % (11.5-14.5); WHITE BLOOD COUNT 4.4 x10^3/uL (4.0-11.0)
--- NOTE | 2021-05-17 10:00 | NUR ---
Dressing changed on tunneled dialysis catheter d/t condensation during patient's shower causing moisture buildup on dressing.
[2021-05-17 11:30] VITALS: BP 121/70
--- NOTE | 2021-05-17 12:05 | PDOC ---
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 Enterococcus bacteremia - sensitivities from microbiology lab faxed over Pending TTE Vascular surgery consult Consider ID consult Nephrology consult for HD Continue empiric IV antibiotics Pending blood cultures Heparin for DVT prophylaxis Protonix GI prophylaxis ADA diet Full code Discussed with RN and SW Disposition inpatient management as above Surrogate decision maker is History of Present Illness History of Present Illness Mr Scott is a 40-year-old male with past medical history of ESRD TTS, IV drug abuse, noncompliance, and multiple times at [facility] for partially occluded temporary dialysis catheters and infections. Apparently, he was lost to follow-up at [facility] but he did go to [place] and had an AV graft placed and has been used for approximately 4 weeks prior to admission. He did not up until 2.5 weeks prior to admission he was using IV methamphetamine injecting in his left arm.. Of note when patient was at [place] his hemoglobin was 6.9 and he needed transfusion. The graft was also evaluated and ultrasound that showed no focal stenosis in the fistula however there was fluid adjacent to the graft itself that was consistent with an abscess. Patient only complains of pain and swelling around her his upper extremity. Denies any fevers, chest pain, shortness of breath, abdominal pain, dysuria, diarrhea or bloody stools. Patient was transferred over here to [place] for vascular surgery support and evaluation. 05/10/2021 No acute events overnight. Afebrile. Labs are stable. Patient only complains of throbbing right arm pain. Patient's chart, labs, images were reviewed and discussed with RN 05/11; No overnight events afebrile. Labs stable. Still complaining of throbbing right arm pain. K6.2 today. He is more swollen he has been eating and liberalized his fluid intake over the last couple days. Discussed with microbiology lab [facility] is Enterococcus positive blood cultures. 05/12: Sodium low potassium high. Feeling very bloated notes he has been eating and drinking a lot more since he is in recovery from methamphetamine abuse. Enterococcus cultures reviewed sensitive to ampicillin. Discussed with ID. Will need to delay tunneling of dialysis catheter at least 48 hours to wait for repeat blood cultures negative. 05/13: Hb 7.7. No complaints today. Afebrile. Plan for n.p.o. until dialysis catheter tomorrow. Repeat blood cultures with no growth to date. 05/14: Hb 6.9, K7.2. N.p.o. for tunneled dialysis catheter later today he was able to eat breakfast somehow. Seen on dialysis, a little drowsy. Low k bath and blood 1u PRBC ordered. 05/15: Afebrile overnight. Tunneled dialysis catheter placed per IR. Having some drainage in his right extremity graft site culture NG TD. Plan to transition to oral linezolid. He is still fluid overloaded and needs additional ultrafiltration at dialysis today but refused. 05/16: Afebrile. Refused additional dialysis last night because he wanted to eat. Additional dialysis today. Minimal drainage at his graft site implants not foul- smelling culture returned back with no growth. Tolerating linezolid. BP improved with addition of isosorbide. Drinking soda, advised not to 05/17: Neck swelling improved after ultrafiltration approximately 6 L. Nephrology recommends an additional ultrafiltration on 05/18/2021 prior to discharge go back to his regular Tuesday schedule. We will plan on discharging likely tomorrow with p.o. linezolid and outpatient follow-up with vascular surgery to assess the graft. Vitals/I&O Vitals/I&O: Vital Signs Date Time Temp Pulse Resp B/P (MAP) Pulse Ox O2 Delivery O2 Flow Rate FiO2 05/17/21 11:30 98.0 89 18 121/70 (87) 98 Room Air 98.0 05/16/21 23:31 2.0 I & O 05/16/21 05/16/21 05/17/21 15:00 23:00 07:00 Intake Total 600 ml 720 ml Balance 600 ml 720 ml Physical Exam Physical Exam: GENERAL: Alert, oriented x 3, well-nourished, well-developed male, lying in bed comfortably, in no acute distress, HEENT: Normocephalic, atraumatic. Anicteric. No thrush. Oral mucosa moist. NECK: Supple, no JVD. Right IJ temporary dialysis catheter in place. LUNGS: Clear bilaterally. No wheezing. Chest wall permanent left HDC catheter present HEART: S1, S2. No gallops or murmurs. ABDOMEN: Soft, nontender, nondistended. Bowel sounds present. EXTREMITIES: Right upper extremity swelling present. Slightly improved there is an abrasion present lateral and distal aspect of the right AV shunt area with continued drainage. No surrounding redness, underlying fluctuance or drainage noted. Previous scar from recent graft is well healed. No drainage. There is mild tenderness present. Right upper extremity swelling extends to the fingers. No cyanosis or clubbing. CENTRAL NERVOUS SYSTEM: Alert, oriented x 3, grossly nonfocal. PSYCHIATRIC: Calm and cooperative. DERMATOLOGIC: Warm, dry, no generalized rash except for above. General: Alert, Oriented X3, Cooperative Heart: Regular rate Abdomen: Normal bowel sounds Extremities: Normal pulses, Other (Good thrill in right upper extremity graft) Skin: Other (Small punctate lesion in the central portion of the graft without purulent drainage, there is no cellulitis, there is no malodor) Labs Labs: Laboratory Tests Test 05/17/21 08:40 White Blood Count 4.4 x10^3/uL (4.0-11.0) Red Blood Count 2.42 x10^6/uL (4.30-5.70) Hemoglobin 7.4 g/dL (13.0-17.5) Hematocrit 21.9 % (39.0-53.0) Mean Corpuscular Volume 90 fL (79-100) Mean Corpuscular Hemoglobin 30 pg (25-35) Mean Corpuscular Hemoglobin Concent 34 g/dL (31-37) Red Cell Distribution Width 18.4 % (11.5-14.5) Platelet Count 116 x10^3/uL (140-400) Neutrophils (%) (Auto) 78 % (31-73) Lymphocytes (%) (Auto) 15 % (24-48) Monocytes (%) (Auto) 5 % (0-9) Eosinophils (%) (Auto) 3 % (0-3) Basophils (%) (Auto) 0 % (0-3) Neutrophils # (Auto) 3.4 x10^3/uL (1.8-7.7) Lymphocytes # (Auto) 0.6 x10^3/uL (1.0-4.8) Monocytes # (Auto) 0.2 x10^3/uL (0.0-1.1) Eosinophils # (Auto) 0.1 x10^3/uL (0.0-0.7) Basophils # (Auto) 0.0 x10^3/uL (0.0-0.2) Comment Review of Relevant I have reviewed the following items guerda (where applicable) has been applied. Justifications for Admission Other Justification SERGIO GRAF MD May 17, 2021 12:05
[2021-05-17 15:00] VITALS: BP 135/76
--- NOTE | 2021-05-17 15:26 | NUR ---
Tunneled Dialysis Catheter bleeding around insertion site and saturated dressing again. Patient did state that he rolled over on his stomach. Dressing changed again and throuroughly cleaned around site.
[2021-05-17 19:00] VITALS: BP 134/77
[2021-05-17] MEDS: MEROPENEM 500 MG in IV NORMAL SALINE 50ML 50 ML IV SCH (20:37)
[2021-05-17 23:00] VITALS: BP 148/87
[2021-05-18] MEDS: fentaNYL PF VIAL 100 MCG/2 ML VIAL IVP PRN ×7 (02:23→22:21)
[2021-05-18 03:00] VITALS: BP 151/97
[2021-05-18 05:58] LABS: BASO % 0 % (0-3); EOS # 0.1 x10^3/uL (0.0-0.7); EOS % 3 % (0-3); HEMATOCRIT 21.7 % (39.0-53.0); HEMOGLOBIN 7.2 g/dL (13.0-17.5); LYMPH # 0.7 x10^3/uL (1.0-4.8); LYMPH % 18 % (24-48); MEAN CORPUSCULAR HEMOGLOBIN 30 pg (25-35); MEAN CORPUSCULAR HGB CONC 33 g/dL (31-37); MEAN CORPUSCULAR VOLUME 90 fL (79-100); MONO # 0.2 x10^3/uL (0.0-1.1); MONO % 6 % (0-9); NEUT # 2.9 x10^3/uL (1.8-7.7); NEUT % 73 % (31-73); PLATELET COUNT 111 x10^3/uL (140-400); RED CELL DISTRIBUTION WIDTH 18.5 % (11.5-14.5); WHITE BLOOD COUNT 3.9 x10^3/uL (4.0-11.0)
[2021-05-18 06:12] LABS: ALBUMIN 2.6 g/dL (3.4-5.0); CALCIUM 8.7 mg/dL (8.5-10.1); CREATININE 6.9 mg/dL (0.7-1.3)
[2021-05-18] MEDS: CALCIUM ACETATE 667 MG CAPSULE PO SCH ×3 (08:00→17:52)
--- NOTE | 2021-05-18 08:05 | PDOC ---
Infectious Disease Note Subjective: Subjective Patient seen in dialysis unit Patient feels better Drainage from right upper extremity graft site and swelling of the right upper extremity is improving though slowly WBC 3.9, platelet 111 Denies fever, nausea, vomiting, shortness of breath, diarrhea, abdominal pain,gen rash Vital Signs: Vital Signs Vital Signs Date Time Temp Pulse Resp B/P (MAP) Pulse Ox O2 Delivery O2 Flow Rate FiO2 05/18/21 06:00 99 Room Air 05/18/21 03:00 98.0 84 20 151/97 (115) 98.0 Physical Exam: PHYSICAL EXAM GENERAL: Alert, oriented x 3, well-nourished, well-developed male, lying in bed comfortably, in no acute distress, HEENT: Normocephalic, atraumatic. Anicteric. No thrush. Oral mucosa moist. NECK: Supple, no JVD. Right IJ temporary dialysis catheter in place. LUNGS: Clear bilaterally. No wheezing. Chest wall permanent left HDC catheter present HEART: S1, S2. No gallops or murmurs. ABDOMEN: Soft, nontender, nondistended. Bowel sounds present. EXTREMITIES: Right upper extremity swelling present. Slightly improved there is an abrasion present lateral and distal aspect of the right AV shunt area with continued drainage. No surrounding redness, underlying fluctuance or drainage noted. Previous scar from recent graft is well healed. No drainage. There is mild tenderness present. Right upper extremity swelling extends to the fingers. No cyanosis or clubbing. CENTRAL NERVOUS SYSTEM: Alert, oriented x 3, grossly nonfocal. PSYCHIATRIC: Calm and cooperative. DERMATOLOGIC: Warm, dry, no generalized rash except for above. Medications: Inpatient Meds: Medications reviewed. Labs: Lab Laboratory Tests Test 05/17/21 08:40 05/18/21 05:25 White Blood Count 4.4 x10^3/uL (4.0-11.0) 3.9 x10^3/uL (4.0-11.0) Red Blood Count 2.42 x10^6/uL (4.30-5.70) 2.40 x10^6/uL (4.30-5.70) Hemoglobin 7.4 g/dL (13.0-17.5) 7.2 g/dL (13.0-17.5) Hematocrit 21.9 % (39.0-53.0) 21.7 % (39.0-53.0) Mean Corpuscular Volume 90 fL (79-100) 90 fL (79-100) Mean Corpuscular Hemoglobin 30 pg (25-35) 30 pg (25-35) Mean Corpuscular Hemoglobin Concent 34 g/dL (31-37) 33 g/dL (31-37) Red Cell Distribution Width 18.4 % (11.5-14.5) 18.5 % (11.5-14.5) Platelet Count 116 x10^3/uL (140-400) 111 x10^3/uL (140-400) Neutrophils (%) (Auto) 78 % (31-73) 73 % (31-73) Lymphocytes (%) (Auto) 15 % (24-48) 18 % (24-48) Monocytes (%) (Auto) 5 % (0-9) 6 % (0-9) Eosinophils (%) (Auto) 3 % (0-3) 3 % (0-3) Basophils (%) (Auto) 0 % (0-3) 0 % (0-3) Neutrophils # (Auto) 3.4 x10^3/uL (1.8-7.7) 2.9 x10^3/uL (1.8-7.7) Lymphocytes # (Auto) 0.6 x10^3/uL (1.0-4.8) 0.7 x10^3/uL (1.0-4.8) Monocytes # (Auto) 0.2 x10^3/uL (0.0-1.1) 0.2 x10^3/uL (0.0-1.1) Eosinophils # (Auto) 0.1 x10^3/uL (0.0-0.7) 0.1 x10^3/uL (0.0-0.7) Basophils # (Auto) 0.0 x10^3/uL (0.0-0.2) 0.0 x10^3/uL (0.0-0.2) Sodium Level 133 mmol/L (136-145) Potassium Level 6.0 mmol/L (3.5-5.1) Chloride Level 96 mmol/L (98-107) Carbon Dioxide Level 27 mmol/L (21-32) Anion Gap 10 (6-14) Blood Urea Nitrogen 54 mg/dL (8-26) Creatinine 6.9 mg/dL (0.7-1.3) Estimated GFR (Cockcroft-Gault) 9.0 Glucose Level 83 mg/dL (70-99) Calcium Level 8.7 mg/dL (8.5-10.1) Phosphorus Level 9.0 mg/dL (2.6-4.7) Albumin 2.6 g/dL (3.4-5.0) Micro RUN DATE: 05/14/21 [facility] LAB *LIVE* PAGE 1 RUN TIME: 1106 Specimen Inquiry PATIENT: RIKI PAINTERDELVIN Damon ACCT: [id number] LOC: [address] [place] [address] U: [id number] AGE/SX: 40/M ROOM: [facility] RE05/08/[address]: YENY BORDEN III DO : 1980 BED: 1 DIS: STATUS: ADM IN TLOC: SPEC #: [id number] GABRIELA: 05/12/21 STATUS: RES REQ #: [id number] RECD: 05/12/21 [facility] DR: IVELISSE ORTEGA MD SOURCE: BLOOD ENTR: 05/12/21-3 [facility] DR: YENY BORDEN III, DO [facility]: ZEV GABRIEL MD, VENU S MD NON,STAFF ORDERED: BCULT Procedure Result BLOOD CULTURE Preliminary NO GROWTH AFTER 2 DAYS Objective: Assessment: Patient transferred from [place] with right upper extremity swelling and pain Ultrasound revealed right perigraft fluid collection Enterococcus ampicillin sensitive, daptomycin sensitive, and staph hominis bacteremia May 05, 2021 from [facility] [place] Repeat BC neg here so far from May 12, 2021 1. Possible right upper extremity infection with tenderness and swelling around the right arm AV shunt. Ultrasound at [facility] showed a fluid collection in the perigraft area. Vascular surgery has evaluated the patient. Repeat ultrasound reviewed No surgical intervention planned 2. Superficial abrasion over the lateral and distal aspect of the right arm AV shunt. Cult of fluid done remains negative 3. End-stage renal disease, on hemodialysis, 6. Status post permanent HDC placement Hyponatremia and hyperkalemia 4. Hypertension. 5. Anemia of chronic disease. 6. History of intravenous drug user. 7. History of ALLERGIES TO PENICILLIN, SULFA, VANCOMYCIN. 8. History of noncompliance 9. Thrombocytopenia 10. Leukopenia Plan: Plan of Care cont merrem for now, Dose Dapto today If discharged today start linezolid 05/20/2021 for 7 days Follow-up repeat blood cultures here and swab cultures neg so far Vascular Surgery have recommended patient follow-up with his previous surgeon upon discharge pt remains of risk of graft loss Hopefully graft can be salvaged as he has limited access sites available Elevate right upper extremity. Continue local wound care as directed Prescription in chart Case management to assist with Zyvox prescription Discussed with nursing staff IVELISSE ORTEGA MD May 18, 2021 08:05
[2021-05-18] MEDS ORDERED: DIALYSIS PATIENT. MC PRN (08:30)
[2021-05-18] MEDS ORDERED: IV NORMAL SALINE 1000ML BAG 1,000 ML IV PRN ×2 (08:30)
[2021-05-18] MEDS ORDERED: diphenhydrAMINE 50 MG/ML VIAL IV PRN ×2 (08:30)
[2021-05-18] MEDS ORDERED: DAPTOmycin (GENERIC) IVPB 490 MG in IV NORMAL SALINE 50ML 50 ML IV SCH (10:00)
[2021-05-18 11:00] VITALS: BP 178/106
--- NOTE | 2021-05-18 11:50 | PDOC ---
Renal-Progress Notes Subjective Notes Notes NO NEW COMPLAINTS History of Present Illness Hx of present illness STILL HAS SIGNIFICANT ANASARCA Vitals Vitals Vital Signs Date Time Temp Pulse Resp B/P (MAP) Pulse Ox O2 Delivery O2 Flow Rate FiO2 05/18/21 08:49 Room Air 05/18/21 06:00 99 05/18/21 03:00 98.0 84 20 151/97 (115) 98.0 Weight Weight [ ] I.O. Intake and Output Intake and Output 05/18/21 07:00 Intake Total 960 ml Balance 960 ml Intake Oral 960 ml # Voids 4 Labs Labs Laboratory Tests Test 05/18/21 05:25 White Blood Count 3.9 x10^3/uL (4.0-11.0) Red Blood Count 2.40 x10^6/uL (4.30-5.70) Hemoglobin 7.2 g/dL (13.0-17.5) Hematocrit 21.7 % (39.0-53.0) Mean Corpuscular Volume 90 fL (79-100) Mean Corpuscular Hemoglobin 30 pg (25-35) Mean Corpuscular Hemoglobin Concent 33 g/dL (31-37) Red Cell Distribution Width 18.5 % (11.5-14.5) Platelet Count 111 x10^3/uL (140-400) Neutrophils (%) (Auto) 73 % (31-73) Lymphocytes (%) (Auto) 18 % (24-48) Monocytes (%) (Auto) 6 % (0-9) Eosinophils (%) (Auto) 3 % (0-3) Basophils (%) (Auto) 0 % (0-3) Neutrophils # (Auto) 2.9 x10^3/uL (1.8-7.7) Lymphocytes # (Auto) 0.7 x10^3/uL (1.0-4.8) Monocytes # (Auto) 0.2 x10^3/uL (0.0-1.1) Eosinophils # (Auto) 0.1 x10^3/uL (0.0-0.7) Basophils # (Auto) 0.0 x10^3/uL (0.0-0.2) Sodium Level 133 mmol/L (136-145) Potassium Level 6.0 mmol/L (3.5-5.1) Chloride Level 96 mmol/L (98-107) Carbon Dioxide Level 27 mmol/L (21-32) Anion Gap 10 (6-14) Blood Urea Nitrogen 54 mg/dL (8-26) Creatinine 6.9 mg/dL (0.7-1.3) Estimated GFR (Cockcroft-Gault) 9.0 Glucose Level 83 mg/dL (70-99) Calcium Level 8.7 mg/dL (8.5-10.1) Phosphorus Level 9.0 mg/dL (2.6-4.7) Albumin 2.6 g/dL (3.4-5.0) Micro Micro Microbiology 05/12/21 Blood Culture - Final, Complete NO GROWTH AFTER 5 DAYS 05/11/21 Gram Stain - Final, Complete 05/11/21 Aerobic and Anaerobic Culture - Final, Complete Review of Systems Constitutional: yes: weakness, alert, oriented Ears/Nose/Throat: Yes: no symptom reported Eyes: Yes: no symptom reported Pulmonary: Yes no symptom reported Cardiovascular: Yes no symptom reported Gastrointestional: Yes: constipation Genitourinary: Yes: no symptom reported Musculoskeletal: Yes: arm pain, muscle stiffness Skin: Yes no symptom reported Psychiatric/Neurological: Yes: no symptom reported Endocrine: Yes: no symptom reported Physical Exam General Appearance: no apparent distress Skin: warm Respiratory: bilateral CTA Heart: S1S2 Abdomen: soft, bowel sounds present Genitourinary: bladder flat Extremities: pulses present, other (RIGHT ARM AVG WITH TENDERNESS, ERYTHEMA, THRILL AND BRUIT PRESENT) Neurology: alert, oriented Assessment Assessment IMP HYPERKALEMIA-RESOLVED HYPERKALEMIA ESRD-TTS-S/P NEW TDC MPGN ANEMIA HTN GLUCOSE INTOLERANCE POSS LINE SEPSIS RIGHT ARM BB AVG SITE INFECTION IVDA ENTEROCOCCAL BACTEREMIA ANASARCA PLAN ANTIBIOTICS ARANESP HD TODAY- UF TOLERATED ABOUT 6.0 LITERS VASCULAR SURGERY EVALUATION ENC ABSTINENCE FROM IVDA WILL FOLLOW D/W ITZEL HANNAH MD May 18, 2021 11:50
[2021-05-18] MEDS: cloNIDine HCL 0.1 MG TABLET PO SCH (12:23)
[2021-05-18] MEDS: FOLIC/VIT B COMP W-C (RENAL) TABLET. PO SCH (12:24)
[2021-05-18] MEDS: ISOSORBIDE MONONITRATE 20 MG TABLET PO SCH ×2 (12:24→15:19)
[2021-05-18] MEDS: CETIRIZINE HCL 10 MG TABLET. PO SCH (12:24)
[2021-05-18] MEDS: GABAPENTIN 100 MG CAPSULE. PO SCH ×2 (12:24→22:22)
[2021-05-18] MEDS: PANTOPRAZOLE 40 MG TABLET.DR. PO SCH (12:25)
[2021-05-18] MEDS: CARVEDILOL 12.5 MG TABLET. PO SCH ×2 (12:26→17:53)
[2021-05-18] MEDS: LACTOBACILLUS RHAMNOSUS GG 1 CAPSULE. PO SCH ×2 (12:27→22:22)
--- NOTE | 2021-05-18 13:41 | NUR ---
SW following. Discussed with RN, pt needing diaylsis daily, not ready to discharge yet. SW will continue to follow.
[2021-05-18 15:30] VITALS: BP 133/76
[2021-05-18 19:00] VITALS: BP 128/72
[2021-05-18] MEDS: MEROPENEM 500 MG in IV NORMAL SALINE 50ML 50 ML IV SCH (22:27)
[2021-05-18 23:00] VITALS: BP 136/82
[2021-05-19] MEDS: fentaNYL PF VIAL 100 MCG/2 ML VIAL IVP PRN ×4 (01:25→13:30)
[2021-05-19 03:00] VITALS: BP 164/102
[2021-05-19] MEDS: oxyCODONE/APAP 10/325 1 TAB TABLET PO PRN ×2 (06:39→13:29)
[2021-05-19 07:00] VITALS: BP 165/100
--- NOTE | 2021-05-19 08:18 | PDOC ---
Infectious Disease Note Subjective: Subjective Patient feels better Drainage from right upper extremity graft site and swelling of the right upper extremity is improving though slowly WBC 3.9, platelet 111 Denies fever, nausea, vomiting, shortness of breath, diarrhea, abdominal pain,gen rash Vital Signs: Vital Signs Vital Signs Date Time Temp Pulse Resp B/P (MAP) Pulse Ox O2 Delivery O2 Flow Rate FiO2 05/19/21 06:39 94 Room Air 05/19/21 03:00 93 16 164/102 (122) 05/18/21 23:00 98.5 98.5 Physical Exam: PHYSICAL EXAM GENERAL: Alert, oriented x 3, well-nourished, well-developed male, lying in bed comfortably, in no acute distress, HEENT: Normocephalic, atraumatic. Anicteric. No thrush. Oral mucosa moist. NECK: Supple, no JVD. Right IJ temporary dialysis catheter in place. LUNGS: Clear bilaterally. No wheezing. Chest wall permanent left HDC catheter present HEART: S1, S2. No gallops or murmurs. ABDOMEN: Soft, nontender, nondistended. Bowel sounds present. EXTREMITIES: Right upper extremity swelling present. Slightly improved there is an abrasion present lateral and distal aspect of the right AV shunt area with continued drainage. No surrounding redness, underlying fluctuance or drainage noted. Previous scar from recent graft is well healed. No drainage. There is mild tenderness present. Right upper extremity swelling extends to the fingers. No cyanosis or clubbing. CENTRAL NERVOUS SYSTEM: Alert, oriented x 3, grossly nonfocal. PSYCHIATRIC: Calm and cooperative. DERMATOLOGIC: Warm, dry, no generalized rash except for above. Medications: Inpatient Meds: Medications reviewed. Labs: Micro RUN DATE: 05/14/21 [facility] LAB *LIVE* PAGE 1 RUN TIME: 1106 Specimen Inquiry PATIENT: DANIEL PAINTER ACCT: [id number] LOC: [address] [place] [address] U: [id number] AGE/SX: 40/M ROOM: [facility] RE05/08/[address]: YENY BORDEN III, DO : 1980 BED: 1 DIS: STATUS: ADM IN TLOC: SPEC #: [id number] GABRIELA: 05/12/21 STATUS: RES REQ #: [id number] RECD: 05/12/[address]: IVELISSE ORTEGA MD SOURCE: BLOOD ENTR: 05/12/21-[address]: YENY BORDEN III, DO SPDESC: ZEV GABRIEL MD, VENU S MD NON,STAFF ORDERED: BCULT Procedure Result BLOOD CULTURE Preliminary NO GROWTH AFTER 2 DAYS Objective: Assessment: Patient transferred from [place] with right upper extremity swelling and pain Ultrasound revealed right perigraft fluid collection Enterococcus ampicillin sensitive, daptomycin sensitive, and staph hominis bacteremia May 05, 2021 from [facility] Repeat BC neg here so far from May 12, 2021 1. Possible right upper extremity infection with tenderness and swelling around the right arm AV shunt. Ultrasound at [facility] showed a fluid collection in the perigraft area. Vascular surgery has evaluated the patient. Repeat ultrasound reviewed No surgical intervention planned 2. Superficial abrasion over the lateral and distal aspect of the right arm AV shunt. Cult of fluid done remains negative 3. End-stage renal disease, on hemodialysis, 6. Status post permanent HDC placement Hyponatremia and hyperkalemia 4. Hypertension. 5. Anemia of chronic disease. 6. History of intravenous drug user. 7. History of ALLERGIES TO PENICILLIN, SULFA, VANCOMYCIN. 8. History of noncompliance 9. Thrombocytopenia 10. Leukopenia Plan: Plan of Care cont merrem for now, Dose Dapto once yesterday Consult for discharge home later today per patient Start linezolid 05/20/2021 for 7 days Prescription in chart Follow-up repeat blood cultures here and swab cultures neg so far Vascular Surgery have recommended patient follow-up with his previous surgeon upon discharge pt remains of risk of graft loss Hopefully graft can be salvaged as he has limited access sites available Elevate right upper extremity. Continue local wound care as directed Discussed with nursing staff IVELISSE ORTEGA MD May 19, 2021 08:18
[2021-05-19] MEDS: LACTOBACILLUS RHAMNOSUS GG 1 CAPSULE. PO SCH (09:05)
[2021-05-19] MEDS: GABAPENTIN 100 MG CAPSULE. PO SCH (09:05)
[2021-05-19] MEDS: CALCIUM ACETATE 667 MG CAPSULE PO SCH ×2 (09:05→12:00)
[2021-05-19] MEDS: FOLIC/VIT B COMP W-C (RENAL) TABLET. PO SCH (09:05)
[2021-05-19] MEDS: CETIRIZINE HCL 10 MG TABLET. PO SCH (09:06)
[2021-05-19] MEDS: CARVEDILOL 12.5 MG TABLET. PO SCH (09:06)
[2021-05-19] MEDS: cloNIDine HCL 0.1 MG TABLET PO SCH (09:06)
[2021-05-19 09:07] VITALS: BP 165/100
[2021-05-19] MEDS: PANTOPRAZOLE 40 MG TABLET.DR. PO SCH (09:07)
[2021-05-19] MEDS: ISOSORBIDE MONONITRATE 20 MG TABLET PO SCH (09:07)
[2021-05-19] MEDS ORDERED: IV NORMAL SALINE 1000ML BAG 1,000 ML IV PRN ×2 (09:15)
[2021-05-19] MEDS ORDERED: DIALYSIS PATIENT. MC PRN ×2 (09:15)
[2021-05-19] MEDS ORDERED: 0.9 % SODIUM CHLORIDE 10 ML DISP.SYRIN. IV PRN ×2 (09:15)
[2021-05-19] MEDS ORDERED: ALBUMIN HUMAN 25% 200 ML IV PRN (09:15)
--- NOTE | 2021-05-19 11:37 | PDOC ---
Renal-Progress Notes Subjective Notes Notes FEELING BETTER History of Present Illness Hx of present illness IMPROVING Vitals Vitals Vital Signs Date Time Temp Pulse Resp B/P (MAP) Pulse Ox O2 Delivery O2 Flow Rate FiO2 05/19/21 09:07 92 165/100 05/19/21 07:00 98.4 18 98 Room Air 98.4 Weight Weight [ ] I.O. Intake and Output Intake and Output 05/19/21 07:00 Intake Total 710 ml Balance 710 ml Intake Oral 660 ml IV Total 50 ml # Voids 4 Micro Micro Microbiology 05/12/21 Blood Culture - Final, Complete NO GROWTH AFTER 5 DAYS 05/11/21 Gram Stain - Final, Complete 05/11/21 Aerobic and Anaerobic Culture - Final, Complete Review of Systems Constitutional: yes: weakness, alert, oriented Ears/Nose/Throat: Yes: no symptom reported Eyes: Yes: no symptom reported Pulmonary: Yes no symptom reported Cardiovascular: Yes no symptom reported Gastrointestional: Yes: constipation Genitourinary: Yes: no symptom reported Musculoskeletal: Yes: arm pain, muscle stiffness Skin: Yes no symptom reported Psychiatric/Neurological: Yes: no symptom reported Endocrine: Yes: no symptom reported Physical Exam General Appearance: no apparent distress Skin: warm Respiratory: bilateral CTA Heart: S1S2 Abdomen: soft, bowel sounds present Genitourinary: bladder flat Extremities: pulses present, other (RIGHT ARM AVG WITH TENDERNESS, ERYTHEMA, THRILL AND BRUIT PRESENT) Neurology: alert, oriented Assessment Assessment IMP HYPERKALEMIA-RESOLVED HYPERKALEMIA ESRD-TTS-S/P NEW TDC MPGN ANEMIA HTN GLUCOSE INTOLERANCE POSS LINE SEPSIS RIGHT ARM BB AVG SITE INFECTION IVDA ENTEROCOCCAL BACTEREMIA ANASARCA PLAN ANTIBIOTICS ARANESP HD AGAIN TODAY- UF ANOTHER 6.0 LITERS ENC ABSTINENCE FROM IVDA D/C PLANS NOTED D/W ID ITZEL ARAYA MD May 19, 2021 11:37
--- NOTE | 2021-05-19 12:39 | PDOC ---
[employer] PROGRESS NOTE Date of Service DOS: DATE: 05/19/21 TIME: 12:33 Chief Complaint Chief Complaint Infection of the right upper extremity Acute volume overload due to ESRD IV Methamphetamine abuse in remission History of Present Illness History of Present Illness Mr Scott is a 40-year-old male with past medical history of ESRD TTS, IV drug abuse, noncompliance, and multiple times at [facility] for partially occluded temporary dialysis catheters and infections. Apparently, he was lost to follow-up at [facility] but he did go to [place] and had an AV graft placed and has been used for approximately 4 weeks prior to admission. He did not up until 2.5 weeks prior to admission he was using IV methamphetamine injecting in his left arm.. Of note when patient was at [facility] his hemoglobin was 6.9 and he needed transfusion. The graft was also evaluated and ultrasound that showed no focal stenosis in the fistula however there was fluid adjacent to the graft itself that was consistent with an abscess. Patient only complains of pain and swelling around her his upper extremity. Denies any fevers, chest pain, shortness of breath, abdominal pain, dysuria, diarrhea or bloody stools. Patient was transferred over here to [place] for vascular surgery support and evaluation. 05/10/2021 No acute events overnight. Afebrile. Labs are stable. Patient only complains of throbbing right arm pain. Patient's chart, labs, images were reviewed and discussed with RN 05/11; No overnight events afebrile. Labs stable. Still complaining of throbbing right arm pain. K6.2 today. He is more swollen he has been eating and liberalized his fluid intake over the last couple days. Discussed with microbiology lab [facility] is Enterococcus positive blood cultures. 05/12: Sodium low potassium high. Feeling very bloated notes he has been eating and drinking a lot more since he is in recovery from methamphetamine abuse. Enterococcus cultures reviewed sensitive to ampicillin. Discussed with ID. Will need to delay tunneling of dialysis catheter at least 48 hours to wait for repeat blood cultures negative. 05/13: Hb 7.7. No complaints today. Afebrile. Plan for n.p.o. until dialysis catheter tomorrow. Repeat blood cultures with no growth to date. 05/14: Hb 6.9, K7.2. N.p.o. for tunneled dialysis catheter later today he was able to eat breakfast somehow. Seen on dialysis, a little drowsy. Low k bath and blood 1u PRBC ordered. 05/15: Afebrile overnight. Tunneled dialysis catheter placed per IR. Having some drainage in his right extremity graft site culture NG TD. Plan to transition to oral linezolid. He is still fluid overloaded and needs additional ultrafiltration at dialysis today but refused. 05/16: Afebrile. Refused additional dialysis last night because he wanted to eat. Additional dialysis today. Minimal drainage at his graft site implants not foul- smelling culture returned back with no growth. Tolerating linezolid. BP improved with addition of isosorbide. Drinking soda, advised not to 05/17: Neck swelling improved after ultrafiltration approximately 6 L. Nephrology recommends an additional ultrafiltration on 05/18/2021 prior to discharge go back to his regular Tuesday schedule. We will plan on discharging likely tomorrow with p.o. linezolid and outpatient follow-up with vascular surgery to assess the graft. 05/18: Patient was seen and examined today while receiving dialysis. We discussed patient disposition with nurse and reviewed patient's chart. Vitals/I&O Vitals/I&O: Vital Signs Date Time Temp Pulse Resp B/P (MAP) Pulse Ox O2 Delivery O2 Flow Rate FiO2 05/19/21 09:07 92 165/100 05/19/21 07:00 98.4 18 98 Room Air 98.4 I & O 05/18/21 05/18/21 05/19/21 15:00 23:00 07:00 Intake Total 300 ml 410 ml Balance 300 ml 410 ml Physical Exam Physical Exam: GENERAL: Alert, oriented x 3, well-nourished, well-developed male, lying in bed comfortably, in no acute distress, HEENT: Normocephalic, atraumatic. Anicteric. No thrush. Oral mucosa moist. NECK: Supple, no JVD. Right IJ temporary dialysis catheter in place. LUNGS: Clear bilaterally. No wheezing. Chest wall permanent left HDC catheter present HEART: S1, S2. No gallops or murmurs. ABDOMEN: Soft, nontender, nondistended. Bowel sounds present. EXTREMITIES: Right upper extremity swelling present. Slightly improved there is an abrasion present lateral and distal aspect of the right AV shunt area with continued drainage. No surrounding redness, underlying fluctuance or drainage noted. Previous scar from recent graft is well healed. No drainage. There is mild tenderness present. Right upper extremity swelling extends to the fingers. No cyanosis or clubbing. CENTRAL NERVOUS SYSTEM: Alert, oriented x 3, grossly nonfocal. PSYCHIATRIC: Calm and cooperative. DERMATOLOGIC: Warm, dry, no generalized rash except for above. 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 Justifications for Admission Other Justification YENY BORDEN III DO May 19, 2021 12:39
[2021-05-19] MEDS ORDERED: ISOS20TA6 PO (12:59)
[2021-05-19] MEDS ORDERED: PANT40TA77 PO (12:59)
[2021-05-19] MEDS ORDERED: GABA-585 PO (12:59)
[2021-05-19] MEDS ORDERED: OXYC1TAB22 PO (12:59)
--- NOTE | 2021-05-19 14:59 | NUR ---
SS following up with discharge planning. SS reviewed pt chart and discussed with pt RN. Pt is currently on room air. Discharge order on the chart for home with self care.
--- NOTE | 2021-05-19 18:48 | DS ---
DATE OF DISCHARGE: 05/19/2021 ADMISSION DIAGNOSIS: Right arm graft infection (suspect possible IV drug injection). DISCHARGE DIAGNOSES: 1. Resolving resolving right arm arteriovenous graft infection. 2. End-stage renal disease, on dialysis. 3. History of methamphetamine IV drug use. 4. Resolving Enterococcus bacteremia. CONSULTS: Dr. Bowen and Dr. Israel, Infectious Disease. PROCEDURES: Dialysis. HOSPITAL COURSE: The patient is a pleasant middle-aged male who we think injected himself into his AV graft. It became infected. He was admitted. We gave him IV antibiotics, did some wound care. The above consults were obtained. Over the past 10 days, he has returned to his baseline. Today, I saw him and examined him in the Dialysis Unit. He is doing great. We plan to discharge to home. We are going to put him on p.o. Zyvox 600 b.i.d. DISPOSITION: Home. ACTIVITY: As tolerated. DIET: Renal. MEDICATIONS: 1. Zyvox 600 p.o. b.i.d. 2. Isosorbide mononitrate 20 b.i.d. 3. Gabapentin 100 b.i.d. 4. Oxycodone/Tylenol 10/325 one q. 6 p.r.n. 5. Protonix 40 a day. 6. Vitamins. 7. Carvedilol 25 b.i.d. 8. Cetrizine 10 a day. 9. Clonidine 0.1 every day. 10. Hydralazine 100 every day. TOTAL TIME: 38 minutes. FRANCESCA/HARRIS/SONNY DR: FRANCESCA/neftali TID: [id number]
== END 2021-05-19 14:00 | disposition home or self-care (01) | DRG 314 ==
LOC: 5 NORTH 22:55
PROVIDERS: ADMIT Internal Medicine; ATTEND Internal Medicine
PROC: 5A1D70Z Performance of Urinary Filtration, Intermittent, Less than 6 Hours Per Day (ICD-10-PCS; 2021-05-11)
PROC: 5A1D70Z Performance of Urinary Filtration, Intermittent, Less than 6 Hours Per Day (ICD-10-PCS; 2021-05-12)
PROC: 30233N1 Transfusion of Nonautologous Red Blood Cells into Peripheral Vein, Percutaneous Approach (ICD-10-PCS; principal; 2021-05-13)
PROC: 05PYX3Z Removal of Infusion Device from Upper Vein, External Approach (ICD-10-PCS; 2021-05-14)
PROC: 02H633Z Insertion of Infusion Device into Right Atrium, Percutaneous Approach (ICD-10-PCS; 2021-05-14)
PROC: 0JH63XZ Insertion of Tunneled Vascular Access Device into Chest Subcutaneous Tissue and Fascia, Percutaneous Approach (ICD-10-PCS; 2021-05-14)
PROC: B5181ZA Fluoroscopy of Superior Vena Cava using Low Osmolar Contrast, Guidance (ICD-10-PCS; 2021-05-14)
PROC: 5A1D70Z Performance of Urinary Filtration, Intermittent, Less than 6 Hours Per Day (ICD-10-PCS; 2021-05-14)
PROC: 5A1D70Z Performance of Urinary Filtration, Intermittent, Less than 6 Hours Per Day (ICD-10-PCS; 2021-05-16)
PROC: 5A1D70Z Performance of Urinary Filtration, Intermittent, Less than 6 Hours Per Day (ICD-10-PCS; 2021-05-18)
PROC: 5A1D70Z Performance of Urinary Filtration, Intermittent, Less than 6 Hours Per Day (ICD-10-PCS; 2021-05-19)
DX: T82.7XXA Infection and inflammatory reaction due to other cardiac and vascular devices, implants and grafts, initial encounter (principal); N18.6 End stage renal disease; E87.1 Hypo-osmolality and hyponatremia; I12.0 Hypertensive chronic kidney disease with stage 5 chronic kidney disease or end stage renal disease; N25.81 Secondary hyperparathyroidism of renal origin; B95.2 Enterococcus as the cause of diseases classified elsewhere; B95.7 Other staphylococcus as the cause of diseases classified elsewhere; D63.8 Anemia in other chronic diseases classified elsewhere; D69.6 Thrombocytopenia, unspecified; E74.39 Other disorders of intestinal carbohydrate absorption; E78.5 Hyperlipidemia, unspecified; E87.5 Hyperkalemia; E87.70 Fluid overload, unspecified; F15.11 Other stimulant abuse, in remission; Y83.2 Surgical operation with anastomosis, bypass or graft as the cause of abnormal reaction of the patient, or of later complication, without mention of misadventure at the time of the procedure; Z82.49 Family history of ischemic heart disease and other diseases of the circulatory system; Z88.0 Allergy status to penicillin; Z88.2 Allergy status to sulfonamides; Z91.19 Patient's noncompliance with other medical treatment and regimen; Z99.2 Dependence on renal dialysis; E21.3 Hyperparathyroidism, unspecified; F19.90 Other psychoactive substance use, unspecified, uncomplicated; J40 Bronchitis, not specified as acute or chronic; K59.00 Constipation, unspecified; M79.89 Other specified soft tissue disorders; R40.0 Somnolence
CPT/HCPCS: 36415; 36581; 76881; 77001; 80048; 80053; 80069; 85007; 85025; 85027; 86850; 86900; 86901; 86920; 87040; 87071; 87075; 87340; 93971; 99152; 99153; C1750; C1892; J0878; J0882; J2020; J2185; J2250; J2270; J3010; J3490; P9016; G0378; Q0163